=== PATIENT | female | born 1945 | race Caucasian/White ===

== ENCOUNTER 2022-03-21 17:43 | Emergency (ER) | payer MEDICARE, OTHER, SELFPAY ==
--- NOTE | 2022-03-21 18:05 | ED_ITS ---
HPI - General Adult General Chief complaint: Urogenital-Female <ISMAEL Pool - Last Filed: 03/21/22 18:13> Stated complaint: ?UTI <ISMAEL Pool - Last Filed: 03/21/22 18:13> Time Seen by Provider: 03/21/22 18:47 <ISMAEL Pool - Last Filed: 03/21/22 18:13> Source: patient <ISMAEL Pool - Last Filed: 03/21/22 18:13> Mode of arrival: ambulatory <ISMAEL Pool - Last Filed: 03/21/22 18:13> Limitations: no limitations <ISMAEL Pool - Last Filed: 03/21/22 18:13> History of Present Illness HPI narrative: Patient otherwise healthy with history of hypertension comes here for urinary frequency and dysuria for last few hours no fever no chills no nausea no vomiting patient does not get UTI very often <Dmitry Bui MD - Last Filed: 03/21/22 19:30> Related Data Home medications: Previous Rx's Medication Instructions Recorded cefuroxime axetil 250 mg tablet 250 mg PO BID 7 days #14 tabs 03/21/22 phenazopyridine 200 mg tablet 200 mg PO TID 2 days #6 tabs 03/21/22 (Pyridium) <ISMAEL Pool - Last Filed: 03/21/22 18:13> Allergies/adverse reactions: Allergies Allergy/AdvReac Type Severity Reaction Status Date / Time cimetidine [From Tagamet] Allergy Intermediate Gastrointestinal Verified 03/21/22 18:08 Upset erythromycin base Allergy Intermediate Gastrointestinal Verified 03/21/22 18:08 Upset fish derived Allergy Intermediate Gastrointestinal Verified 03/21/22 18:08 Upset ciprofloxacin [From Cipro] AdvReac Intermediate Muscle Verified 03/21/22 18:08 cramps levofloxacin [From Levaquin] AdvReac Intermediate Muscle Pain Verified 03/21/22 18:08 oxycodone AdvReac Mild Nausea Verified 03/21/22 18:08 <ISMAEL Pool - Last Filed: 03/21/22 18:13> Review of Systems Review of Systems: Yes all other systems are reviewed and are negative <Dmitry Bui MD - Last Filed: 03/21/22 19:30> [facility] Social History Social History: Social History Advance Directives: No Advance Directives Information Provided: Yes <ISMAEL Pool - Last Filed: 03/21/22 18:13> Physical Exam ED Vital Signs: Vital Signs - 24 hr 03/21/22 18:09 Temperature 98.2 F Pulse Rate 66 Respiratory Rate 18 Blood Pressure 197/84 H Pulse Oximetry 94 Oxygen Delivery Method Room Air BMI result Body Mass Index 44.6 <ISMAEL Pool - Last Filed: 03/21/22 18:13> Vital Signs - 24 hr 03/21/22 18:09 Temperature 98.2 F Pulse Rate 66 Respiratory Rate 18 Blood Pressure 197/84 H Pulse Oximetry 94 Oxygen Delivery Method Room Air BMI result Body Mass Index 44.6 <Dmitry Bui MD - Last Filed: 03/21/22 19:30> Appearance: Alert. Oriented X3. No acute distress. ENT: Pharynx normal. Oral Mucosa moist Neck: Normal inspection. Neck supple. CVS: Normal heart rate and rhythm. Pulses normal. Respiratory: No respiratory distress. Equal air entry bilateral, Abdomen: Soft and nontender. Bowel sounds are present, no mass palpable, no CVA tenderness Skin: Skin warm and dry. Normal skin color. Normal skin turgor. Extremities: No lower extremity edema. No calf tenderness Neuro: Oriented X 3. <Dmitry Bui MD - Last Filed: 03/21/22 19:30> Course Course Course Narrative: RME performed by Tri Cortez PA-C. Patient is a 76 year old female presenting to the emergency department with a possible UTI. Patient states that she has had increased urinary urgency, frequency, and pain. UA ordered. Patient placed in waiting room pending results and bed availability. <ISMAEL Pool - Last Filed: 03/21/22 18:13> Medical Decision Making Medical Decision Making [facility] Narrative: Patient with uncomplicated UTI discharge patient home on Ceftin and Pyridium <Dmitry Bui MD - Last Filed: 03/21/22 19:30> Lab Data [facility] Lab Attestation statement: I reviewed the patient's lab results. <Dmitry Bui MD - Last Filed: 03/21/22 19:30> Labs: Lab Results 03/21/22 Range/Units 18:48 Urine Color Dark Yellow Urine Appearance Clear Urine pH 7.0 (5.0-9.0) Ur Specific [place] 1.010 (1.005-1.025) Urine Protein Negative (Neg-Trace) mg/dL Urine Glucose (UA) Negative (Negative) mg/dL Urine Ketones Negative (Negative) mg/dL Urine Blood Large (3+) H (Negative) Urine Nitrite Positive H (Negative) Ur Leukocyte Esterase Moderate (2+) H (Negative) Urine RBC 11-20 H (0-2) /HPF Urine WBC 21-50 H (0-5) /HPF Ur Squamous Epith Cells 6-10 (0-2) /HPF Urine Bacteria None Seen (None Seen) Hyaline Casts 0-2 (0-2) /LPF <ISMAEL Pool - Last Filed: 03/21/22 18:13> Lab Results 03/21/22 Range/Units 18:48 Urine Color Dark Yellow Urine Appearance Clear Urine pH 7.0 (5.0-9.0) Ur Specific [place] 1.010 (1.005-1.025) Urine Protein Negative (Neg-Trace) mg/dL Urine Glucose (UA) Negative (Negative) mg/dL Urine Ketones Negative (Negative) mg/dL Urine Blood Large (3+) H (Negative) Urine Nitrite Positive H (Negative) Ur Leukocyte Esterase Moderate (2+) H (Negative) Urine RBC 11-20 H (0-2) /HPF Urine WBC 21-50 H (0-5) /HPF Ur Squamous Epith Cells 6-10 (0-2) /HPF Urine Bacteria None Seen (None Seen) Hyaline Casts 0-2 (0-2) /LPF <Dmitry Bui MD - Last Filed: 03/21/22 19:30> Discharge Plan Discharge Clinical Impression: Urinary tract infection <ISMAEL Pool - Last Filed: 03/21/22 18:13> Patient Disposition: Home, Self-Care <ISMAEL Pool - Last Filed: 03/21/22 18:13> Instructions: Urinary Tract Infection in Women (ED) <ISMAEL Pool - Last Filed: 03/21/22 18:13> Additional Instructions: Drink plenty of fluids Take antibiotic as prescribed Report to the ER if vomiting/fever/flank pain/not feeling better <ISMAEL Pool - Last Filed: 03/21/22 18:13> Prescriptions: New cefuroxime axetil 250 mg tablet 250 mg PO BID 7 Days Qty: 14 0RF phenazopyridine [Pyridium] 200 mg tablet 200 mg PO TID 2 Days Qty: 6 0RF <ISMAEL Pool - Last Filed: 03/21/22 18:13>
[2022-03-21 18:09] VITALS: BP 197/84; PULSE 66; RESP 18; TEMP 36.8; O2SAT 94; BMI 44.6
[2022-03-21 19:05] LABS: Appearance Urine Clear; Color Urine Dark Yellow; Glucose Urine UA Negative (Negative); Leukocyte Esterase Urine Moderate (2+) (Negative); Nitrite Urine Positive (Negative); UMIC TRIGGER UACC YES; Urine Blood Large (3+) (Negative); Urine Ketones Negative (Negative); Urine Protein Negative (Neg-Trace)
[2022-03-21 19:22] LABS: Bacteria Urine None Seen (None Seen); Hyaline Casts Urine 0-2 /LPF (0-2); UACC Culture Trigger YES; WBC Urine 21-50 /HPF (0-5)
[2022-03-21] MEDS: Phenazopyridine HCL 200 MG TABLET PO (19:30)
--- NOTE | 2022-03-21 19:44 | PC.NURSE ---
pt medicated per provider order, medications called into [facility] - [facility].
== END 2022-03-21 19:45 | disposition home or self-care (01) ==
PROVIDERS: Physician Assistant Medical; Emergency Provider Internal Medicine; PCP Family Medicine
DX: N39.0 Urinary tract infection, site not specified (principal); B96.4 Proteus (mirabilis) (morganii) as the cause of diseases classified elsewhere
CPT/HCPCS: 81001; 81003; 87086; 87088; 87186; 99283

== ENCOUNTER 2023-02-26 10:49 | Emergency (ER) | payer MEDICARE, OTHER, SELFPAY ==
--- NOTE | 2023-02-26 10:53 | ECG_ITS ---
Test Reason : MOUTH NUMBNESS Blood Pressure : / mmHG Vent. Rate : 061 BPM Atrial Rate : 061 BPM P-R Int : 166 ms QRS Dur : 078 ms QT Int : 426 ms P-R-T Axes : 052 039 036 degrees QTc Int : 428 ms Normal sinus rhythm Normal ECG When compared with ECG of 15-AUG-2004 11:45, No significant change was found Referred By: James Ulloa Electronically Signed By:MAUREEN DE LEON
--- NOTE | 2023-02-26 10:53 | ED_ITS ---
HPI - Anxiety General Chief Complaint: General Medical Stated Complaint: STROKE SYMPTOMS Time Seen by Provider: 02/26/23 10:52 Source: patient and EMS Mode of arrival: EMS Limitations: no limitations History of Present Illness HPI narrative: Patient under a lot of stress at home, mouth numbness, felt like her tongue was swelling. She was concerned that she was having a stroke, no other focal findings Onset (ago): minute(s) Symptoms: perioral numbness/tingling Related Data Previous Rx's Medication Instructions Recorded cefuroxime axetil 250 mg tablet 250 mg PO BID 7 days #14 tabs 03/21/22 phenazopyridine 200 mg tablet 200 mg PO TID 2 days #6 tabs 03/21/22 (Pyridium) Allergies Allergy/AdvReac Type Severity Reaction Status Date / Time cimetidine [From Tagamet] Allergy Intermediate Gastrointestinal Verified 03/21/22 18:08 Upset erythromycin base Allergy Intermediate Gastrointestinal Verified 03/21/22 18:08 Upset fish derived Allergy Intermediate Gastrointestinal Verified 03/21/22 18:08 Upset ciprofloxacin [From Cipro] AdvReac Intermediate Muscle Verified 03/21/22 18:08 cramps levofloxacin [From Levaquin] AdvReac Intermediate Muscle Pain Verified 03/21/22 18:08 oxycodone AdvReac Mild Nausea Verified 03/21/22 18:08 Review of Systems 2 Review of Systems: Yes all other systems are reviewed and are negative Neurologic: Denies Sensory deficit (Neuro) [facility] Social History Social History Advance Directives: No Advance Directives Information Provided: Yes Physical Exam 2 Vital Signs: Vital Signs: Last Vital Signs Temp 98.8 F 02/26/23 11:00 Pulse 61 02/26/23 12:28 Resp 18 02/26/23 12:28 BP 181/48 H 02/26/23 12:28 Pulse Ox 92 02/26/23 12:28 O2 Del Method Room Air 02/26/23 12:28 BMI result Body Mass Index 49.6 Const: Other: slightly anxious Nutritional Appearance: obese Orientation/consciousness: oriented to person and patient oriented x3 Limitations: no limitations HEENT: Head: Yes normal to inspection Ears: external ears normal General nose exam: Normal external nose present Mouth: Normal oral and palatal mucosa present and oropharynx normal Throat: Yes posterior oropharynx normal Eyes: General: appearance normal, both eyes and all related structures Neck: Other: supple Neck: Yes normal visual inspection Chest: Chest palpation & inspection: normal inspection of the chest Resp: Auscultation: clear to auscultation bilaterally Cardio: Jugular venous distension: no JVD Rate: regular rate Rhythm: r egular rhythm Heart sounds: S1 normal heart sound present and S2 normal heart sound present GI: Inspection: Yes normal to inspection Palpation (GI): Soft to palpation, nontender and No hepatosplenomegaly present Auscultation: normal bowel sounds : General: Yes no CVA tenderness Back/Spine/Pelvis: Back: no CVA tenderness Skin: General skin exam: no rashes or lesions noted Neuro: Other: nonfocal neuro exam, NIH 0 General: oriented to person and patient oriented x3 Cranial nerves: Yes CN's II-XII intact bilaterally Motor exam (neuro): 5/5 motor strength present throughout Sensory Exam: No Sensory deficit (Neuro) Extrem: General: Yes normal to inspection Psych: Appearance: grossly normal Course Reevaluation(s) Reevaluation #1: labs normal, patient non focal will dc with anxiety and paraesthesia Time: 13:25 Medical Decision Making Differential Diagnosis Differential Diagnoses: The differential diagnosis associated with the presentation includes (anxiety, CVA, bells palsy allergic reaction were all considered) Admission/Observation Consideration of admission/observation: Escalation of care including admission/observation considered (upon arrival patient was considered for admission) Lab Data 02/26/23 12:17 02/26/23 12:17 Labs: Lab Results 02/26/23 02/26/23 Range/Units 12:17 12:23 WBC 7.9 (4.8-10.8) X10*3/uL RBC 4.45 (4.20-5.50) X10*6/uL Hgb 12.9 (12.0-16.0) g/dl Hct 38.8 (37.0-47.0) % MCV 87.2 (80.0-98.0) fL MCH 29.0 (27.0-33.0) pg MCHC 33.2 (31.0-35.0) g/dl RDW 13.7 (11.0-16.0) % Plt Count 243 (160-400) X10*3/uL MPV 10.1 (9.4-12.3) fL Immature Gran % (Auto) 0.3 (0.0-0.4) % Neut % (Auto) 73.2 H (45-73) % Lymph % (Auto) 17.3 L (20-40) % Orange % (Auto) 5.4 (2-11) % Eos % (Auto) 3.0 (0-4) % Baso % (Auto) 0.8 (0-2) % Lymph # (Auto) 1.4 (1.2-4.9) X10*3/uL Orange # (Auto) 0.4 (0.1-1.2) X10*3/uL Eos # (Auto) 0.2 (0.0-0.4) X10*3/uL Baso # (Auto) 0.1 (0.0-0.2) X10*3/uL Abs Immat Gran (auto) 0.02 (0.00-0.03) X10*3/uL Absolute Neuts (auto) 5.8 (2.0-8.3) x10*3/uL Absolute Nucleated RBC 0.000 (0.0-0.012) X10*3/uL Nucleated RBC % (auto) 0.0 (0.0-0.2) /100WBC Sodium 145 (135-145) mmol/L Potassium 4.1 (3.3-5.1) mmol/L Chloride 110 H (96-108) mmol/L Carbon Dioxide 27 (22-29) mmol/L Anion Gap 12 (12-20) BUN 13 (9-16) mg/dL Creatinine 0.77 (0.5-1.4) mg/dL Estim Creat Clear Calc 78.2 Estimated GFR > 60 Random Glucose 111 (60-115) mg/dL Calcium 9.4 (8.4-10.2) mg/dL Troponin I High Sens < 2.7 (<3.5-17.0) ng/L Urine Color Yellow Urine Appearance Clear Urine pH 7.0 (5.0-9.0) Ur Specific [place] <= 1.005 (1.005-1.025) Urine Protein Negative (Neg-Trace) mg/dL Urine Glucose (UA) Negative (Negative) mg/dL Urine Ketones Negative (Negative) mg/dL Urine Blood Negative (Negative) Urine Nitrite Negative (Negative) Ur Leukocyte Esterase Negative (Negative) Independent Interpretation I performed an independent interpretation of an: EKG (sinus 60, no st or twave changes) Independent Historian Clinical information obtained from an independent historian. History obtained from or confirmed by: Spouse and EMS Tests considered The following testing was considered but not selected: CT of head considered but patient was non focal Chronic Conditions Patient?s care impacted by: Hypertension and Other (anxiety) Discharge Plan Discharge Clinical Impression: Facial paresthesia, Anxiety Patient Disposition: Home, Self-Care Instructions: Paresthesia (ED), Anxiety (ED) Prescriptions: No Action cefuroxime axetil 250 mg tablet 250 mg PO BID 7 Days Qty: 14 0RF phenazopyridine [Pyridium] 200 mg tablet 200 mg PO TID 2 Days Qty: 6 0RF Referrals: Talat Paige MD [Primary Care Provider] - 5 days
[2023-02-26 11:00] VITALS: BP 200/100; BP 202/90; PULSE 59; PULSE 73; RESP 18; TEMP 37.1; O2SAT 95; O2SAT 97; BMI 49.6
--- OUTSIDE RECORDS SUMMARY | 2023-02-26 11:18 | XMS_ITS | Continuity of Care Document ---
Author Name Unknown Organization [facility] Address [address], [address], [address] [place] [id number]- Care Team Providers Care Manager Finance Name Role Phone Grecia SEGUNDO, Talat March Primary Care Physician Encounter [facility] [place] Date(s[place] 07/14/22 - 08/13/22 [facility] [address], [address], [address] [place] [id number] Allergies, Adverse Reactions, Alerts Substance Reaction Severity Status ciprofloxacin weakness Active erythromycin [D]Nausea Active cimetidine WEAKNESS Active Tagamet [D]Nausea Active Levaquin spasms Active Seafood [D]Headache [D]Nausea Active Immunizations Given and Recorded Vaccine Date Status Refusal Reason pneumococcal 23-valent vaccine 1 05/07/22 Given influenza virus vaccine, inactivated 01/12/22 Robles rded influenza virus vaccine, inactivated 12/16/20 Robles rded influenza virus vaccine, inactivated 2 01/19/19 Gi maggie influenza virus vaccine, inactivated 01/03/18 Give n influenza virus vaccine, inactivated 3 03/01/17 Gi maggie SARS-CoV-2 mRNA ([id number]) vax 09/16/21 Recorded zoster vaccine, inactivated 04/14/21 Recorded zoster vaccine, inactivated 12/09/20 Recorded SARS-CoV-2 (COVID-19) mRNA BNT-162b2 vac 01/08/21 Recorded SARS-CoV-2 (COVID-19) mRNA BNT-162b2 vac 05/22/20 Given SARS-CoV-2 (COVID-19) mRNA BNT-162b2 vac 05/01/20 Given Influenza Virus Vaccine (oldterm) 11/16/19 Recorde d tetanus/diphtheria/pertussis, acel(Tdap) 4 08/23/17 Given pneumococcal 13-valent vaccine 5 03/01/17 Given 1Result Comment: [id number] 2Result Comment: [facility]-[id number] 3Result Comment: [03/01/2017] [facility] [id number] 4Result Comment: [08/23/2017] [facility] [id number] 5Result Comment: [03/01/2017] [facility] [id number] Medications Calcium 600 +D By Mouth, 0 Refills Start Date: 09/04/08 Stop Date: 10/04/08 Status: Ordered clonazePAM 1 mg oral tablet 1 tablet, By Mouth, 2 times a day, # 180 tablet, 1 Refills, Maintenance, 02/03/22 15:36:00 EST, [facility], 175.26, cm, 02/03/22 14:57:00 EST, Height Start Date: 02/03/22 Status: Ordered cranberry oral tablet 0 Refills, Maintenance, 09/24/16 10:41:52 Start Date: 09/24/16 Status: Ordered Flonase 50 mcg/inh nasal spray 1 sprays = 50 mcg, Nares, Both, Daily, # 16 Gm, 5 Refills, Maintenance, 01/15/20 14:58:00 EDT, Nasal [place], [facility]/pharmacy #[id number], 1 sprays Nares, Both Daily, 175.26, cm, 12/04/19 14:32:00 EDT, Height, 121.7, kg, 09/01/19 8:19:00 EDT, Dry Weight Start Date: 01/15/20 Status: Ordered hyoscyamine 0.125 mg oral tablet 0.125 mg, 1, tablet, By Mouth, Daily, PRN, # 45 tablet, Refills 3, Tot. Refills 3, Maintenance, Spasm, 11/20/20 17:39:00 EDT, Route to Pharmacy Electronically, [facility], Partial fill upon patient request if the prescription is... Start Date: 11/20/20 Status: Ordered Magnesium Carbonate See Instructions, 200mg bid, 0 Refills, Maintenance, 02/26/22 12:56:00 EST, Partial fill upon patient request if the prescription is for a schedule II opioid drug. Start Date: 02/26/22 Status: Ordered Multivitamin Tablet 1 tablet, By Mouth, Daily, 0 Refills Start Date: 09/04/08 Stop Date: 10/04/08 Status: Ordered nystatin topical 729863 u/gm powder 1 application, Topically, 2 times a day, Apply to affected areas twice a day., # 60 Gm, 5 Refills, Acute 05/07/23 14:21:00 EST, 05/07/22 14:21:00 EST, Powder, [facility], 1 application Topically 2 times a day,Instr:Apply to affe... Start Date: 05/07/22 Stop Date: 05/07/23 Status: Ordered omeprazole 40 mg oral enteric coated capsule 1 capsule = 40 mg, By Mouth, 2 times a day, # 180 capsule, 3 Refills, Maintenance, 02/03/22 15:34:00 EST, Suspension, [facility], Partial fill upon patient request if the prescription is for a schedule II opioid drug., 175.26, c... Start Date: 02/03/22 Status: Ordered PARoxetine 20 mg oral tablet 1, tablet, By Mouth, Daily, # 90 tablet, Refills 1, Maintenance, 05/12/22 13:58:00 EST, Route to Pharmacy Electronically, [facility], 175.26, cm, 05/07/22 14:00:00 EST, Height Start Date: 05/12/22 Status: Ordered Probiotic Formula 1 capsule, By Mouth, Daily, 0 Refills, Maintenance, 09/24/16 10:41:57 Start Date: 09/24/16 Status: Ordered propranolol 20 mg oral tablet 20 mg, 1, tablet, By Mouth, 2 times a day, Stop verapamil, # 60 tablet, Refills 9, Tot. Refills 9, Maintenance, 06/29/22 11:50:00 EDT, Route to Pharmacy Electronically, [facility], Partial fill upon patient request if the prescr... Start Date: 06/29/22 Status: Ordered rizatriptan 10 mg oral tablet 1 tablet = 10 mg, By Mouth, Daily, PRN Migraine Headache, may repeat dose in 2 hours if needed, do not exceed 2 doses in 24 hours, # 9 tablet, 5 Refills, Acute 08/11/23 0:00:00 EDT, 08/10/22 18:20:00EDT, [facility]/pharmacy #[id number], Partial fill upon patient... Start Date: 08/10/22 Stop Date: 08/11/23 Status: Ordered simvastatin 20 mg oral tablet 1, tablet, By Mouth, Daily at bedtime, # 90 tablet, Refills 1, Maintenance, 05/12/22 13:58:00 EST, Route to Pharmacy Electronically, [facility], 175.26, cm, 05/07/22 14:00:00 EST,Height Start Date: 05/12/22 Status: Ordered ubrogepant 100 mg oral tablet 1 tablet = 100 mg, By Mouth, Daily, PRN Headache, # 9 tablet, 0 Refills, Soft Stop, 08/10/22 18:12:00 EDT, [facility]/pharmacy #[id number], Partial fill upon patient request if the prescription is for a schedule II opioid drug., 175.26, cm, 06/29/22 11:56:00 EDT,... Start Date: 08/10/22 Status: Ordered Vitamin B2 By Mouth, Daily, 0 Refills, Maintenance, 02/03/22 15:14:00 EST, Partial fill upon patient request if the prescription is for a schedule II opioid drug. Start Date: 02/03/22 Status: Ordered Problem List Condition Confirmation Course Effective Dates Status H ealth Status Informant Anxiety Confirmed Active Meningioma Confirmed Active Benign neoplasm of meninges Confirmed Active Chronic sinusitis Confirmed Active Depressive disorder Confirmed Active Gastroesophageal reflux disease Confirmed Active Headache Confirmed Active Hip pain Confirmed Active Hyperlipidemia Confirmed Active Meralgia paresthetica Confirmed Active Migraine headache with aura Confirmed Active SELMA (obstructive sleep apnea) Confirmed Active Osteoarthritis, knee Confirmed Active Seasonal allergic rhinitis Confirmed Active Severe obesity (BMI 35.0-39.9) with comorbidity Confirmed Active Urinary symptom or sign Confirmed Active Venous stasis Confirmed Active Social History Social History Type Response Smoking Status Never smoker entered on: 09/24/16 Sex Patient Care team information Care Team Personnel Name: Talat Paige MD Position: S Physician - Primary Care Member Role: PCP Address: Address: [address] [place] [id number]- Care Team Related Persons Name: ANNIE HASSAN Address: home [address] [place] [address] Name: LISHA LOVE Address: home [address] [place] [address]
--- OUTSIDE RECORDS SUMMARY | 2023-02-26 11:18 | XMS_ITS | Continuity of Care Document ---
Author Name Unknown Organization [facility] Address Unknown Care Team Providers Care Supervisor Nutritional Yeast Name Role Phone Grecia SEGUNDO, Talat March Primary Care Physician [phone] Encounter [facility] R [id number] Date(s): 05/21/21 - 06/20/21 [facility] Attending Physician: Vitor Asencio Admitting Physician: Vitor Asencio Referring Physician: AdmtrVitor Allergies, Adverse Reactions, Alerts Substance Reaction Severity Status ciprofloxacin weakness Active erythromycin [D]Nausea Active cimetidine WEAKNESS Active Tagamet [D]Nausea Active Levaquin spasms Active Seafood [D]Headache [D]Nausea Active Immunizations Given and Recorded Vaccine Date Status Refusal Reason influenza virus vaccine, inactivated 12/16/20 Robles rded influenza virus vaccine, inactivated 1 01/19/19 Gi maggie influenza virus vaccine, inactivated 01/03/18 Give n influenza virus vaccine, inactivated 2 03/01/17 Gi maggie zoster vaccine, inactivated 12/09/20 Recorded SARS-CoV-2 (COVID-19) mRNA BNT-162b2 vac 05/22/20 Given SARS-CoV-2 (COVID-19) mRNA BNT-162b2 vac 05/01/20 Given Influenza Virus Vaccine (oldterm) 11/16/19 Recorde d tetanus/diphtheria/pertussis, acel(Tdap) 3 08/23/17 Given pneumococcal 13-valent vaccine 4 03/01/17 Given 1Result Comment: [facility]-[id number] 2Result Comment: [03/01/2017] [facility] [id number] 3Result Comment: [08/23/2017] [facility] [id number] 4Result Comment: [03/01/2017] [facility] [id number] Medications acetaminophen/butalbital/caffeine 325 mg-50 mg-40 mg oral capsule 1 capsule, By Mouth, Every 4 hours, PRN NEEDED FOR HEADACHE, # 180 capsule, 3 Refills, Acute 11/20/21 17:41:00 EDT, 11/20/20 17:41:00 EDT, [facility], 30, 1 capsule By MouthEvery 4 hours,PRN: NEEDED FOR HEADA... Start Date: 11/20/20 Stop Date: 11/20/21 Status: Ordered BiPAP Equipment BiPAP 14/10, Maintenance, nasal mask Reliable Respiratory, 05/16/18 15:13:22 EST, Compound Start Date: 05/16/18 Status: Ordered Calcium 600 +D By Mouth, 0 Refills Start Date: 09/04/08 Stop Date: 10/04/08 Status: Ordered clonazePAM 1 mg oral tablet 1 tablet, By Mouth, 2 times a day, # 180 tablet, 1 Refills, Maintenance, 11/20/20 17:38:00 EDT, [facility], 175.26, cm, 11/20/20 14:07:00 EDT, Height, 121.7, kg, 09/01/19 8:19:00 EDT, Dry Weight Start Date: 11/20/20 Status: Ordered cranberry oral tablet 0 Refills, Maintenance, 09/24/16 10:41:52 Start Date: 09/24/16 Status: Ordered Flonase 50 mcg/inh nasal spray 1 sprays = 50 mcg, Nares, Both, Daily, # 16 Gm, 5 Refills, Maintenance, 01/15/20 14:58:00 EDT, Nasal [place], [facility]/pharmacy #[id number], 1 sprays Nares, Both Daily, 175.26, cm, 12/04/19 14:32:00 EDT, Height, 121.7, kg, 09/01/19 8:19:00 EDT, Dry Weight Start Date: 01/15/20 Status: Ordered Hyoscyamine 0 Refills, Maintenance, 09/24/16 10:41:29 Start Date: 09/24/16 Status: Ordered hyoscyamine 0.125 mg oral tablet 0.125 mg, 1, tablet, By Mouth, Daily, PRN, # 45 tablet, Refills 3, Tot. Refills 3, Maintenance, Spasm, 11/20/20 17:39:00 EDT, Route to Pharmacy Electronically, [facility], Partial fill upon patient request if the prescription is... Start Date: 11/20/20 Status: Ordered Multivitamin Tablet 1 tablet, By Mouth, Daily, 0 Refills Start Date: 09/04/08 Stop Date: 10/04/08 Status: Ordered omeprazole 20 mg oral enteric coated capsule 1 capsule, By Mouth, Daily, # 90 capsule, 3 Refills, Maintenance, 11/20/20 17:40:00 EDT, [facility], 175.26, cm, 11/20/20 14:07:00 EDT, Height, 121.7, kg, 09/01/19 8:19:00 EDT,Dry Weight Start Date: 11/20/20 Status: Ordered PARoxetine 20 mg oral tablet 1, tablet, By Mouth, Daily, # 90 tablet, Refills 1, Route to Pharmacy Electronically, [facility], 175.26, cm, 11/20/20 14:07:00 EDT, Height, 121.7, kg, 09/01/19 8:19:00 EDT, Dry Weight Start Date: 02/11/21 Status: Ordered Probiotic Formula 1 capsule, By Mouth, Daily, 0 Refills, Maintenance, 09/24/16 10:41:57 Start Date: 09/24/16 Status: Ordered rizatriptan 5 mg oral tablet 1 tablet = 5 mg, By Mouth, Daily, PRN Migraine auras, # 12 tablet, 3 Refills, Acute 11/20/21 17:41:00 EDT, 11/20/20 17:40:00 EDT, Tablet, [facility], Partial fill upon patient request if the prescription is for a schedule II opi... Start Date: 11/20/20 Stop Date: 11/20/21 Status: Ordered simvastatin 20 mg oral tablet 1, tablet, By Mouth, Daily at bedtime, # 90 tablet, Refills 3, Tot. Refills 0, Maintenance, 09/03/20 16:49:00 EDT, Route to Pharmacy Electronically, [facility], 175.26, cm, 12/04/19 14:32:00 EDT, Height, 121.7, kg, 09/01/19 8:19:00... Start Date: 09/03/20 Status: Ordered triamcinolone topical 0.1% paste See Instructions, Apply to affected lesions at corners of mouth tid until resolves, # 4 Gm, 2 Refills, Maintenance, 11/08/18 11:22:17 EDT, Apply to affected lesions at corners of mouth tid until resolves Start Date: 11/08/18 Status: Ordered verapamil 180 mg oral capsule, extended release 1 capsule, By Mouth, Daily, # 90 capsule, 3 Refills, Maintenance, 09/03/20 16:49:00 EDT, [facility], 175.26, cm, 12/04/19 14:32:00 EDT, Height, 121.7, kg, 09/01/19 8:19:00 EDT, DryWeight Start Date: 09/03/20 Status: Ordered Problem List Condition Effective Dates Status Health Status Inform ant Anxiety(Confirmed) Active Meningioma(Confirmed) Active Benign neoplasm of meninges(Confirmed) Active Chronic sinusitis(Confirmed) Active Depressive disorder(Confirmed) Active Gastroesophageal reflux disease(Confirmed) Active Headache(Confirmed) Active Hip pain(Confirmed) Active Hyperlipidemia(Confirmed) Active Meralgia paresthetica(Confirmed) Active Migraine headache with aura(Confirmed) Active SELMA (obstructive sleep apnea)(Confirmed) Active Osteoarthritis, knee(Confirmed) Active Seasonal allergic rhinitis(Confirmed) Active Urinary symptom or sign(Confirmed) Active Venous stasis(Confirmed) Active Social History Social History Type Response Smoking Status Never smoker entered on: 09/24/16 Sex
--- OUTSIDE RECORDS SUMMARY | 2023-02-26 11:18 | XMS_ITS | Continuity of Care Document ---
Author Name Unknown Organization [facility] Address [address] [place] [address]- Care Team Providers Care Wood Fence Erector Name Role Phone Grecia SEGUNDO, Talat March Primary Care Physician [phone] Encounter [facility] Date(s): 05/13/19 - 09/10/19 [facility] [address] [place] [address]- [facility] Attending Physician: Chon TRUCK OPERATOR, Delma Maurer Referring Physician: Talat Paige MD Allergies, Adverse Reactions, Alerts Substance Reaction Severity Status ciprofloxacin weakness Active erythromycin [D]Nausea Active cimetidine WEAKNESS Active Tagamet [D]Nausea Active Levaquin spasms Active Seafood [D]Headache [D]Nausea Active Immunizations Given and Recorded Vaccine Date Status Refusal Reason influenza virus vaccine, inactivated 1 01/19/19 Gi maggie influenza virus vaccine, inactivated 01/03/18 Give n influenza virus vaccine, inactivated 2 03/01/17 Gi maggie tetanus/diphtheria/pertussis, acel(Tdap) 3 08/23/17 Given pneumococcal 13-valent vaccine 4 03/01/17 Given 1Result Comment: [facility]-[id number] 2Result Comment: [03/01/2017] [facility] [id number] 3Result Comment: [08/23/2017] [facility] [id number] 4Result Comment: [03/01/2017] [facility] [id number] Medications acetaminophen/butalbital/caffeine 325 mg-50 mg-40 mg oral capsule 1 capsule, By Mouth, Every 4 hours, PRN for headache, # 90 capsule, 1 Refills, Maintenance, 07/03/19 14:23:00 EDT, Capsule, [facility], 1 capsule By Mouth Every 4 hours,PRN:forheadache, 162.56, cm, 11/08/18 10:49:00 EDT, Height Start Date: 07/03/19 Status: Ordered BiPAP Equipment BiPAP 14/10, Maintenance, nasal mask Reliable Respiratory, 05/16/18 15:13:22 EST, Compound Start Date: 05/16/18 Status: Ordered Calcium 600 +D By Mouth, 0 Refills Start Date: 09/04/08 Stop Date: 10/04/08 Status: Ordered clonazePAM 1 mg oral tablet 1 tablet, By Mouth, 2 times a day, # 180 tablet, 1 Refills, Maintenance, 05/09/19 12:56:00 EST, [facility], 162.56, cm, 11/08/18 10:49:00 EDT, Height Start Date: 05/09/19 Status: Ordered cranberry oral tablet 0 Refills, Maintenance, 09/24/16 10:41:52 Start Date: 09/24/16 Status: Ordered Dilaudid 2 mg oral tablet 1 tablet = 2 mg, By Mouth, Every 4 hours, PRN for pain, # 18 tablet, 0 Refills, Maintenance, 09/01/19 10:16:00 EDT, Tablet, [facility], Partial fill upon patient request, 175.26, cm,09/01/19 8:19:00 EDT, Height, 121.7, kg, 09/01/19 8... Start Date: 09/01/19 Status: Ordered Flonase 50 mcg/inh nasal spray 1 sprays = 50 mcg, Nares, Both, Daily, # 16 Gm, 5 Refills, Maintenance, 11/08/18 11:12:34 EDT, Nasal [place], 1 sprays Nares, Both Daily Start Date: 11/08/18 Status: Ordered Hyoscyamine 0 Refills, Maintenance, 09/24/16 10:41:29 Start Date: 09/24/16 Status: Ordered Multivitamin Tablet 1 tablet, By Mouth, Daily, 0 Refills Start Date: 09/04/08 Stop Date: 10/04/08 Status: Ordered omeprazole 20 mg oral enteric coated capsule 1 capsule, By Mouth, Daily, # 90 capsule, 3 Refills, Maintenance, 08/16/19 7:22:00 EDT, [facility], 162.56, cm, 11/08/18 10:49:00 EDT, Height Start Date: 08/16/19 Status: Ordered PARoxetine 20 mg oral tablet 1, tablet, By Mouth, Daily, # 90 tablet, Refills 3, Tot. Refills 3, Maintenance, 06/23/19 11:03:00 EDT, Route to Pharmacy Electronically, [facility], 162.56, cm, 11/08/18 10:49:00 EDT, Height Start Date: 06/23/19 Status: Ordered Probiotic Formula 1 capsule, By Mouth, Daily, 0 Refills, Maintenance, 09/24/16 10:41:57 Start Date: 09/24/16 Status: Ordered rizatriptan 5 mg oral tablet 1 tablet = 5 mg, By Mouth, Daily, PRN Migraine auras, 0 Refills, Acute, 08/30/19 12:40:00 EDT Start Date: 08/30/19 Status: Ordered simvastatin 20 mg oral tablet 20 mg, 1, tablet, By Mouth, Daily at bedtime, # 90 tablet, Refills 3, Tot. Refills 3, Maintenance, 11/08/18 11:11:57 EDT, Route to Pharmacy Electronically, [id number], [facility] Start Date: 11/08/18 Status: Ordered triamcinolone topical 0.1% paste See Instructions, Apply to affected lesions at corners of mouth tid until resolves, # 4 Gm, 2 Refills, Maintenance, 11/08/18 11:22:17 EDT, Apply to affected lesions at corners of mouth tid until resolves Start Date: 11/08/18 Status: Ordered verapamil 180 mg oral capsule, extended release 1 capsule = 180 mg, By Mouth, Daily, # 90 capsule, 3 Refills, Maintenance, 11/08/18 11:11:44 EDT, CR Capsule Start Date: 11/08/18 Status: Ordered Zofran 4 mg oral tablet 1 tablet = 4 mg, By Mouth, Every 8 hours, PRN Nausea & Vomiting, # 10 tablet, 0 Refills, Maintenance, 09/01/19 10:18:00 EDT, Tablet, [facility], 175.26, cm, 09/01/19 8:19:00 EDT,Height, 121.7, kg, 09/01/19 8:19:00 EDT, Dry Weight Start Date: 09/01/19 Status: Ordered Problem List Condition Effective Dates Status Health Status Inform ant Anxiety(Confirmed) Active 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
--- OUTSIDE RECORDS SUMMARY | 2023-02-26 11:18 | XMS_ITS | Continuity of Care Document ---
Author Name Unknown Organization [facility] Address [address] [facility], [address] Floor, [address] [place] [address]- Care Team Providers Care Toll Line Repairer Name Role Phone Grecia SEGUNDO, Talat March Primary Care Physician Encounter [facility] Date(s): 01/12/22 - 02/11/22 [facility] [address] [place], [address], [address] [place] [address] Attending Physician: Admjose, Vitor Admitting Physician: Admtr, Timothy8 Referring Physician: Admtr, Ar8 Allergies, Adverse Reactions, Alerts Substance Reaction Severity Status ciprofloxacin weakness Active Levaquin spasms Active erythromycin [D]Nausea Active Tagamet [D]Nausea Active Seafood [D]Headache [D]Nausea Active cimetidine WEAKNESS Active Immunizations Given and Recorded Vaccine Date Status Refusal Reason influenza virus vaccine, inactivated 01/12/22 Robles rded influenza virus vaccine, inactivated 12/16/20 Robles rded influenza virus vaccine, inactivated 1 01/19/19 Gi maggie influenza virus vaccine, inactivated 01/03/18 Give n influenza virus vaccine, inactivated 2 03/01/17 Gi maggie SARS-CoV-2 mRNA ([id number]) vax 09/16/21 Recorded zoster vaccine, inactivated 04/14/21 Recorded zoster vaccine, inactivated 12/09/20 Recorded SARS-CoV-2 (COVID-19) mRNA BNT-162b2 vac 01/08/21 Recorded SARS-CoV-2 (COVID-19) mRNA BNT-162b2 vac 05/22/20 Given SARS-CoV-2 (COVID-19) mRNA BNT-162b2 vac 05/01/20 Given Influenza Virus Vaccine (oldterm) 11/16/19 Recorde d tetanus/diphtheria/pertussis, acel(Tdap) 3 08/23/17 Given pneumococcal 13-valent vaccine 4 03/01/17 Given 1Result Comment: [facility]-[id number] 2Result Comment: [03/01/2017] [facility] [id number] 3Result Comment: [08/23/2017] [facility] [id number] 4Result Comment: [03/01/2017] [facility] [id number] Medications BiPAP Equipment BiPAP 02/01, Maintenance, nasal mask Reliable Respiratory, 05/16/18 15:13:22 EST, Compound Start Date: 05/16/18 Status: Ordered Calcium 600 +D By Mouth, 0 Refills Start Date: 09/04/08 Stop Date: 10/04/08 Status: Ordered clonazePAM 1 mg oral tablet 1 tablet, By Mouth, 2 times a day, # 180 tablet, 1 Refills, Maintenance, 02/03/22 15:36:00 EST, [facility], 175.26, cm, 02/03/22 14:57:00 EST, Height Start Date: 02/03/22 Status: Ordered cranberry oral tablet 0 Refills, Maintenance, 09/24/16 10:41:52 Start Date: 09/24/16 Status: Ordered Flonase 50 mcg/inh nasal spray 1 sprays = 50 mcg, Nares, Both, Daily, # 16 Gm, 5 Refills, Maintenance, 01/15/20 14:58:00 EDT, Nasal [place], [facility]/pharmacy #[id number], 1 sprays Nares, Both Daily, 175.26, [...] 11/20/20 17:39:00 EDT, Route to Pharmacy Electronically, [facility], Partial fill upon patient request if the prescription is... Start Date: 11/20/20 Status: Ordered KlonoPIN 1 mg oral tablet 1 tablet = 1 mg, By Mouth, 3 times a day, 0 Refills, Maintenance, 02/03/22 15:13:00 EST, Partial fill upon patient request if the prescription is for a schedule II opioid drug. Start Date: 02/03/22 Status: Ordered Multivitamin Tablet 1 tablet, By Mouth, Daily, 0 Refills Start Date: 09/04/08 Stop Date: 10/04/08 Status: Ordered omeprazole 40 mg oral enteric coated capsule 1 capsule = 40 mg, By Mouth, 2 times a day, # 180 capsule, 3 Refills, Maintenance, 02/03/22 15:34:00 EST, Suspension, [facility], Partial fill upon patient request if the prescription is for a schedule II opioid drug., 175.26, c... Start Date: 02/03/22 Status: Ordered PARoxetine 20 mg oral tablet 1, tablet, By Mouth, Daily, # 90 tablet, Refills 1, Maintenance, 12/06/21 1:01:00 EDT, [facility], [facility], 175.26, cm, 03/25/21 7:10:00 EST, Height Start Date: 12/06/21 Status: Ordered Probiotic Formula 1 capsule, By Mouth, Daily, 0 Refills, Maintenance, 09/24/16 10:41:57 Start Date: 09/24/16 Status: Ordered rizatriptan 10 mg oral tablet 1 tablet = 10 mg, By Mouth, Daily, PRN for migraine headache, may repeat dose every 2 hours up to amaximum of 2 doses, do not use more than 2 tabs in a week., # 9 tablet, 0 Refills, Acute 01/12/23 0:00:00 EDT, 01/12/22 17:01:00 EDT, Tablet, [facility] Care... Start Date: 01/12/22 Stop Date: 01/12/23 Status: Ordered simvastatin 20 mg oral tablet 1, tablet, By Mouth, Daily at bedtime, # 90 tablet, Refills 3, [facility], [facility], 175.26, cm, 03/25/21 7:10:00 EST, Height, 121.7, kg, 09/01/19 8:19:00 EDT, Dry Weight Start Date: 06/30/21 Status: Ordered triamcinolone topical 0.1% paste See Instructions, Apply to affected lesions at corners of mouth tid until resolves, # 4 Gm, 2 Refills, Maintenance, 11/08/18 11:22:17 EDT, Apply to affected lesions at corners of mouth tid until resolves Start Date: 11/08/18 Status: Ordered verapamil 180 mg oral capsule, extended release 1 capsule, By Mouth, Daily, # 90 capsule, 3 Refills, Maintenance, 12/10/21 5:10:00 EDT, [facility], 175.26, cm, 03/25/21 7:10:00 EST, Height Start Date: 12/10/21 Status: Ordered Vitamin B2 By Mouth, Daily, [...] Active Migraine headache with aura Confirmed Active SELAM (obstructive sleep apnea) Confirmed Active Osteoarthritis, knee Confirmed Active Seasonal allergic rhinitis Confirmed Active Severe obesity Confirmed Active Urinary symptom or sign Confirmed Active Venous stasis Confirmed Active Social History Social History Type Response Smoking Status Never smoker entered on: 09/24/16 Sex Patient Care team information Care Team Personnel Name: Talat Paige MD Position: [facility] Primary Care Physician Member Role: PCP Address: Address: [address] [place] [address]- Care Team Related Persons Name: ANNIE HASSAN Address: home [address] [place] [address] Name: LISHA LOVE Address: [address] [place] [address]
--- OUTSIDE RECORDS SUMMARY | 2023-02-26 11:18 | XMS_ITS | Continuity of Care Document ---
Author Name Unknown Organization [facility] Address [address] [place] [address]- Care Team Providers Care Maintenance And Engineering Manager Name Role Phone Grecia SEGUNDO, Talat March Primary Care Physician Encounter [facility] Date(s): 02/27/22 - 03/29/[address] [address] Attending Physician: Admjose, Vitor Admitting Physician: AdmtrVitor Referring Physician: Admtr, Ar8 Allergies, Adverse Reactions, Alerts Substance Reaction Severity Status ciprofloxacin weakness Active erythromycin [D]Nausea Active Tagamet [D]Nausea Active Seafood [D]Headache [D]Nausea Active cimetidine WEAKNESS Active Levaquin spasms Active Immunizations Given and Recorded Vaccine Date Status Refusal Reason influenza virus vaccine, inactivated 01/12/22 Robles rded influenza virus vaccine, inactivated 12/16/20 Robles rded influenza virus vaccine, inactivated 1 01/19/19 Gi maggie influenza virus vaccine, inactivated 01/03/18 Give n influenza virus vaccine, inactivated 2 03/01/17 Gi maggie SARS-CoV-2 mRNA ([id number]) vax 09/16/21 Recorded zoster vaccine, inactivated 04/14/21 Recorded zoster vaccine, inactivated 12/09/20 Recorded SARS-CoV-2 (COVID-19) mRNA BNT-162b2 vac 01/08/21 Recorded SARS-CoV-2 (COVID-19) mRNA BNT-162b2 vac 05/22/20 Given SARS-CoV-2 (COVID-19) mRNA BNT-162b2 vac 05/01/20 Given Influenza Virus Vaccine (oldterm) 11/16/19 Recorde d tetanus/diphtheria/pertussis, acel(Tdap) 3 08/23/17 Given pneumococcal 13-valent vaccine 4 03/01/17 Given 1Result Comment: [facility]-[id number] 2Result Comment: [03/01/2017] [facility] [id number] 3Result Comment: [08/23/2017] [facility] [id number] 4Result Comment: [03/01/2017] [facility] [id number] Medications BiPAP Equipment BiPAP 02/01, Maintenance, nasal mask Reliable Respiratory, 05/16/18 15:13:22 EST, Compound Start Date: 05/16/18 Status: Ordered Calcium 600 +D By Mouth, 0 Refills Start Date: 09/04/08 Stop Date: 10/04/08 Status: Ordered clonazePAM 1 mg oral tablet 1 tablet, By Mouth, 2 times a day, # 180 tablet, 1 Refills, Maintenance, 02/03/22 15:36:00 EST, [facility], 175.26, cm, 02/03/22 14:57:00 EST, Height Start Date: 02/03/22 Status: Ordered cranberry oral tablet 0 Refills, Maintenance, 09/24/16 10:41:52 Start Date: 09/24/16 Status: Ordered Flonase 50 mcg/inh nasal spray 1 sprays = 50 mcg, Nares, Both, Daily, # 16 Gm, 5 Refills, Maintenance, 01/15/20 14:58:00 EDT, [facility] [id number], 1 sprays Nares, Both Daily, 175.26, cm, 12/04/19 14:32:00 EDT, Height, 121.7, kg, 09/01/19 8:19:00 EDT, Dry Weight Start Date: 01/15/20 Status: Ordered fluconazole 150 mg oral tablet 1 tablet = 150 mg, By Mouth, Once, # 1 tablet, 0 Refills, Soft Stop, 02/26/22 15:22:00 EST, [id number] fill upon patient request if the prescription is for a schedule II opioid drug., 175.26, cm, 02/26/22 12:59:00 EST, Height Start Date: 02/26/22 Status: Ordered Hyoscyamine 0 Refills, Maintenance, 09/24/16 10:41:29 Start Date: 09/24/16 Status: Ordered hyoscyamine 0.125 mg oral tablet 0.125 mg, 1, tablet, By Mouth, Daily, PRN, # 45 tablet, Refills 3, Tot. Refills 3, Maintenance, Spasm, 11/20/20 17:39:00 EDT, Route to Pharmacy Electronically, [facility], Partial fill upon patient request if the prescription is... Start Date: 11/20/20 Status: Ordered KlonoPIN 1 mg oral tablet 1 tablet = 1 mg, By Mouth, 3 times a day, 0 Refills, Maintenance, 02/03/22 15:13:00 EST, Partial fill upon patient request if the prescription is for a schedule II opioid drug. Start Date: 02/03/22 Status: Ordered Magnesium Carbonate See Instructions, 200mg [...] Refills, Maintenance, 02/03/22 15:34:00 EST, Suspension, [facility], Partial fill upon patient request if the prescription is for a schedule II opioid drug., 175.26, c... Start Date: 02/03/22 Status: Ordered PARoxetine 20 mg oral tablet 1, tablet, By Mouth, Daily, # 90 tablet, Refills 1, Maintenance, 12/06/21 1:01:00 EDT, Route to Pharmacy Electronically, [facility], 175.26, cm, 03/25/21 7:10:00 EST, Height Start Date: 12/06/21 Status: Ordered Probiotic Formula 1 capsule, By Mouth, Daily, 0 Refills, Maintenance, 09/24/16 10:41:57 Start Date: 09/24/16 Status: Ordered propranolol 20 mg oral tablet 20 mg, 1, tablet, By Mouth, 2 times a day, Stop verapamil, # 60 tablet, Refills 5, Tot. Refills 5, Maintenance, 02/26/22 13:19:00 EST, Route to Pharmacy Electronically, [facility]/pharmacy #[id number], Partial fill upon patient request if the prescription is for a... Start Date: 02/26/22 Status: Ordered rizatriptan 10 mg oral tablet 1 tablet = 10 mg, By Mouth, Daily, PRN for migraine headache, may repeat dose every 2 hours up to amaximum of 2 doses, do not use more than 2 tabs in a week., # 9 tablet, 0 Refills, Acute 01/12/23 0:00:00 EDT, 01/12/22 17:01:00 EDT, Tablet, [facility]... Start Date: 01/12/22 Stop Date: 01/12/23 Status: Ordered simvastatin 20 mg oral tablet 1, tablet, By Mouth, Daily at bedtime, # 90 tablet, Refills 3, Route to Pharmacy Electronically, [facility], 175.26, cm, 03/25/21 [...] until resolves Start Date: 11/08/18 Status: Ordered Vitamin B2 By Mouth, Daily, [...] Active Migraine headache with aura Confirmed Active Obese class II Confirmed Active SELMA (obstructive sleep apnea) Confirmed Active Osteoarthritis, knee Confirmed Active Seasonal allergic rhinitis Confirmed Active Urinary symptom or sign Confirmed Active Venous stasis Confirmed Active Social History Social History Type Response Smoking Status Never smoker entered on: 09/24/16 Sex Patient Care team information Care Team Personnel Name: Talat Paige MD Position: [facility] Primary Care Physician Member Role: PCP Address: Address: [address] [place] [address]- Care Team Related Persons Name: ANNIE HASSAN Address: [address] [place] [address] Name: LISHA LOVE Address: [address] [place] [address]
--- OUTSIDE RECORDS SUMMARY | 2023-02-26 11:18 | XMS_ITS | Continuity of Care Document ---
Author Name Unknown Organization [facility] Address [address] [place] [address]- Care Team Providers Care Dot Net Developer Name Role Phone Grecia SEGUNDO, Talat March Primary Care Physician [phone] Encounter [facility] Date(s): 10/30/19 - 11/29/19 [facility] Adult [address] [place] [address]- [facility] Allergies, Adverse Reactions, Alerts Substance Reaction Severity Status ciprofloxacin weakness Active erythromycin [D]Nausea Active cimetidine WEAKNESS Active Tagamet [D]Nausea Active Levaquin spasms Active Seafood [D]Headache [D]Nausea Active Immunizations Given and Recorded Vaccine Date Status Refusal Reason Influenza Virus Vaccine (oldterm) 11/16/19 Recorde d influenza virus vaccine, inactivated 1 01/19/19 Gi maggie influenza virus vaccine, inactivated 01/03/18 Give n influenza virus vaccine, inactivated 2 03/01/17 Gi maggie tetanus/diphtheria/pertussis, acel(Tdap) 3 08/23/17 Given pneumococcal 13-valent vaccine 4 03/01/17 Given 1Result Comment: [facility]-[id number] 2Result Comment: [03/01/2017] [facility] 38524-867-23 3Result Comment: [08/23/2017] [facility] 66553-261-86 4Result Comment: [03/01/2017] [facility] [id number] Medications acetaminophen/butalbital/caffeine 325 mg-50 mg-40 mg oral capsule 1 capsule, By Mouth, Every 4 hours, PRN for headache, # 180 capsule, 1 Refills, Maintenance, 10/11/19 5:21:00 EDT, Capsule, [facility], 1 capsule By Mouth Every 4 hours,PRN:forheadache, 175.26, cm, 10/05/19 10:27:00 EDT, Height... Start Date: 10/11/19 Status: Ordered BiPAP Equipment BiPAP 14/10, Maintenance, nasal mask Reliable Respiratory, 05/16/18 15:13:22 EST, Compound Start Date: 05/16/18 Status: Ordered Calcium 600 +D By Mouth, 0 Refills Start Date: 09/04/08 Stop Date: 10/04/08 Status: Ordered clonazePAM 1 mg oral tablet 1 tablet, By Mouth, 2 times a day, # 180 tablet, 1 Refills, Maintenance, 10/05/19 12:06:00 EDT, [facility], 175.26, cm, 10/05/19 10:27:00 EDT, Height, 121.7, kg, 09/01/19 8:19:00 EDT, Dry Weight Start Date: 10/05/19 Status: Ordered cranberry oral tablet 0 Refills, Maintenance, 09/24/16 10:41:52 Start Date: 09/24/16 Status: Ordered Dilaudid 2 mg oral tablet 1 tablet = 2 mg, By Mouth, Every 4 hours, PRN for pain, # 18 tablet, 0 Refills, Maintenance, 09/01/19 10:16:00 EDT, Tablet, [facility], Partial fill upon patient request, 175.26, cm,09/01/19 8:19:00 EDT, Height, 121.7, kg, 09/01/19 8... Start Date: 09/01/19 Status: Ordered Flonase 50 mcg/inh nasal spray 1 sprays = 50 mcg, Nares, Both, Daily, # 16 Gm, 5 Refills, Maintenance, 11/08/18 11:12:34 EDT, Nasal [place], 1 sprays Nares, Both Daily Start Date: 11/08/18 Status: Ordered Hyoscyamine 0 Refills, Maintenance, 09/24/16 10:41:29 Start Date: 09/24/16 Status: Ordered Multivitamin Tablet 1 tablet, By Mouth, Daily, 0 Refills Start Date: 09/04/08 Stop Date: 10/04/08 Status: Ordered omeprazole 20 mg oral enteric coated capsule 1 capsule, By Mouth, Daily, # 90 capsule, 3 Refills, Maintenance, 10/05/19 12:07:00 EDT, [facility], 175.26, cm, 10/05/19 10:27:00 EDT, Height, 121.7, kg, 09/01/19 8:19:00 EDT,Dry Weight Start Date: 10/05/19 Status: Ordered PARoxetine 20 mg oral tablet 1, tablet, By Mouth, Daily, # 90 tablet, Refills 3, Tot. Refills 3, Maintenance, 06/23/19 11:03:00 EDT, Route to Pharmacy Electronically, [facility], 162.56, cm, 11/08/18 10:49:00 EDT, Height [...] tablet, Refills 3, Tot. Refills 3, Maintenance, 10/05/19 12:07:00 EDT, Route to Pharmacy Electronically, [facility], 175.26, cm, 10/05/19 10:27:00 EDT, Height, 121.7, kg, ... Start Date: 10/05/19 Status: Ordered triamcinolone topical 0.1% paste See [...] Daily, # 90 capsule, 3 Refills, Maintenance, 10/05/19 12:07:00 EDT, CR Capsule, [facility], 175.26, cm, 10/05/19 10:27:00 EDT, Height, 121.7, kg, 09/01/19 8:19:00 EDT, Dry Weight Start Date: 10/05/19 Status: Ordered Zofran 4 mg oral tablet 1 tablet = 4 mg, By Mouth, Every 8 hours, PRN Nausea & Vomiting, # 10 tablet, 0 Refills, Maintenance, 09/01/19 10:18:00 EDT, Tablet, [facility], 175.26, cm, 09/01/19 8:19:00 EDT,Height, 121.7, kg, [...]
--- OUTSIDE RECORDS SUMMARY | 2023-02-26 11:18 | XMS_ITS | Continuity of Care Document ---
Author Name Unknown Organization [facility] Address Unknown Care Team Providers Care Retail Merchandising Specialist Name Role Phone Grecia SEGUNDO, Talat March Primary Care Physician Encounter [facility] Date(s): 01/14/21 - 05/14/21 [facility] Attending Physician: Deepa Patel MD Admitting Physician: Deepa Patel MD Referring Physician: Talat Paige MD Allergies, Adverse Reactions, Alerts Substance Reaction Severity Status ciprofloxacin weakness Active erythromycin [D]Nausea Active cimetidine WEAKNESS Active Tagamet [D]Nausea Active Levaquin spasms Active Seafood [D]Headache [D]Nausea Active Immunizations Given and Recorded Vaccine Date Status Refusal Reason influenza virus vaccine, inactivated 12/16/20 Rboles rded influenza virus vaccine, inactivated 1 01/19/19 Gi maggie influenza virus vaccine, inactivated 01/03/18 Give n influenza virus vaccine, inactivated 2 03/01/17 Gi maggie zoster vaccine, inactivated 12/09/20 Recorded SARS-CoV-2 (COVID-19) mRNA BNT-162b2 vac 05/22/20 Given SARS-CoV-2 (COVID-19) mRNA BNT-162b2 vac 05/01/20 Given Influenza Virus Vaccine (oldterm) 11/16/19 Recorde d tetanus/diphtheria/pertussis, acel(Tdap) 3 08/23/17 Given pneumococcal 13-valent vaccine 4 03/01/17 Given 1Result Comment: [facility]-[id number] 2Result Comment: [03/01/2017] [facility] 06270-589-90 3Result Comment: [08/23/2017] [facility] 17562-022-75 4Result Comment: [03/01/2017] [facility] [id number] Medications acetaminophen/butalbital/caffeine 325 mg-50 mg-40 mg oral capsule 1 capsule, By Mouth, Every 4 hours, PRN NEEDED FOR HEADACHE, # 180 capsule, 3 Refills, Acute 11/20/21 17:41:00 EDT, 11/20/20 17:41:00 EDT, [facility], 30, 1 capsule By MouthEvery 4 [...] tablet, 1 Refills, Maintenance, 11/20/20 17:38:00 EDT, [facility], 175.26, cm, 11/20/20 14:07:00 EDT, Height, 121.7, kg, 09/01/19 8:19:00 EDT, Dry Weight Start Date: 11/20/20 Status: Ordered cranberry oral tablet 0 Refills, Maintenance, 09/24/16 10:41:52 Start Date: 09/24/16 Status: Ordered Flonase 50 mcg/inh nasal spray 1 sprays = 50 mcg, Nares, Both, Daily, # 16 Gm, 5 Refills, Maintenance, 01/15/20 14:58:00 EDT, Nasal [place], [facility]/pharmacy #[id number], 1 sprays Nares, Both Daily, 175.26, [...] 11/20/20 17:39:00 EDT, Route to Pharmacy Electronically, [facility], Partial fill upon patient request if the prescription is... Start Date: 11/20/20 Status: Ordered Multivitamin Tablet 1 tablet, By Mouth, Daily, 0 Refills Start Date: 09/04/08 Stop Date: 10/04/08 Status: Ordered omeprazole 20 mg oral enteric coated capsule 1 capsule, By Mouth, Daily, # 90 capsule, 3 Refills, Maintenance, 11/20/20 17:40:00 EDT, [facility], 175.26, cm, 11/20/20 14:07:00 EDT, Height, 121.7, kg, 09/01/19 8:19:00 EDT,Dry Weight Start Date: 11/20/20 Status: Ordered PARoxetine 20 mg oral tablet 1, tablet, By Mouth, Daily, # 90 tablet, Refills 1, Route to Pharmacy Electronically, [facility], 175.26, cm, 11/20/20 14:07:00 EDT, Height, [...] 11/20/21 17:41:00 EDT, 11/20/20 17:40:00 EDT, Tablet, [facility], Partial fill upon patient request if the prescription is for a schedule II opi... Start Date: 11/20/20 Stop Date: 11/20/21 Status: Ordered simvastatin 20 mg oral tablet 1, tablet, By Mouth, Daily at bedtime, # 90 tablet, Refills 3, Tot. Refills 0, Maintenance, 09/03/20 16:49:00 EDT, Route to Pharmacy Electronically, [facility], 175.26, cm, 12/04/19 14:32:00 EDT, [...] capsule, 3 Refills, Maintenance, 09/03/20 16:49:00 EDT, [facility], 175.26, cm, 12/04/19 14:32:00 EDT, [...]
--- OUTSIDE RECORDS SUMMARY | 2023-02-26 11:18 | XMS_ITS | Continuity of Care Document ---
Author Name Unknown Organization [facility] Address [address] [facility] [place] [address]- Care Team Providers Care Leather Colorer Name Role Phone Grecia SEGUNDO, Talat March Primary Care Physician Encounter 11/05/22 - 11/12/22 [facility] [address], [address] [place] [address]- Attending Physician: Shanda SEGUNDO, Bebeto Bernstein Admitting Physician: Bebeto Land MD Referring Physician: Bebeto Land MD Allergies, Adverse Reactions, Alerts Substance Reaction Severity Status ciprofloxacin weakness Active erythromycin [D]Nausea Active cimetidine WEAKNESS Active Tagamet [D]Nausea Active Seafood [D]Headache [D]Nausea Active Levaquin spasms Active Immunizations Given and Recorded Vaccine Date Status Refusal Reason pneumococcal 23-valent vaccine 1 05/07/22 Given influenza virus vaccine, inactivated 01/12/22 Robles rded influenza virus vaccine, inactivated 12/16/20 Robles rded influenza virus vaccine, inactivated 2 01/19/19 Gi maggie influenza virus vaccine, inactivated 01/03/18 Give n influenza virus vaccine, inactivated 3 03/01/17 Gi maggie SARS-CoV-2 mRNA ([id number]) vax 09/16/21 Recorded zoster vaccine, inactivated 04/14/21 Recorded zoster vaccine, inactivated 12/09/20 Recorded SARS-CoV-2 (COVID-19) mRNA BNT-162b2 vac 01/08/21 Recorded SARS-CoV-2 (COVID-19) mRNA BNT-162b2 vac 05/22/20 Given SARS-CoV-2 (COVID-19) mRNA BNT-162b2 vac 05/01/20 Given Influenza Virus Vaccine (oldterm) 11/16/19 Recorde d tetanus/diphtheria/pertussis, acel(Tdap) 4 08/23/17 Given pneumococcal 13-valent vaccine 5 03/01/17 Given 1Result Comment: [id number] 2Result Comment: [facility]-[id number] 3Result Comment: [03/01/2017] [facility] 22848-675-67 4Result Comment: [08/23/2017] [facility] 16928-125-15 5Result Comment: [03/01/2017] [facility] [id number] Medications Calcium 600 +D By Mouth, 0 Refills Start Date: 09/04/08 Stop Date: 10/04/08 Status: Ordered clonazePAM 1 mg oral tablet 1 tablet, By Mouth, 2 times a day, # 180 tablet, 1 Refills, Maintenance, 09/16/22 8:47:00 EDT, [facility], 175.26, cm, 06/29/22 11:56:00 EDT, Height Start Date: 09/16/22 Status: Ordered cranberry oral tablet 0 Refills, Maintenance, 09/24/16 10:41:52 Start Date: 09/24/16 Status: Ordered Flonase 50 mcg/inh nasal spray 1 sprays = 50 mcg, Nares, Both, Daily, # 16 Gm, 5 Refills, Maintenance, 01/15/20 14:58:00 EDT, Nasal [place], [facility]/pharmacy #[id number], 1 sprays Nares, Both Daily, 175.26, cm, 12/04/19 14:32:00 EDT, Height, 121.7, kg, 09/01/19 8:19:00 EDT, Dry Weight Start Date: 01/15/20 Status: Ordered hyoscyamine 0.125 mg oral tablet 0.125 mg, 1, tablet, By Mouth, Daily, PRN, # 45 tablet, Refills 3, Tot. Refills 3, Maintenance, Spasm, 11/20/20 17:39:00 EDT, Route to Pharmacy Electronically, [facility], Partial fill upon patient request [...] Stop Date: 10/04/08 Status: Ordered nystatin topical 804903 u/gm powder 1 application, Topically, 2 times a day, Apply to affected areas twice a day., # 60 Gm, 5 Refills, Acute 05/07/23 14:21:00 EST, 05/07/22 14:21:00 EST, Powder, [facility], 1 application Topically 2 times a day,Instr:Apply to affe... Start Date: 05/07/22 Stop Date: 05/07/23 Status: Ordered omeprazole 40 mg oral enteric coated capsule 1 capsule = 40 mg, By Mouth, 2 times a day, # 180 capsule, 3 Refills, Maintenance, 02/03/22 15:34:00 EST, Suspension, [facility], Partial fill upon patient request if the prescription is for a schedule II opioid drug., 175.26, c... Start Date: 02/03/22 Status: Ordered PARoxetine 20 mg oral tablet 1, tablet, By Mouth, Daily, # 90 tablet, Refills 1, Maintenance, 10/09/22 8:07:00 EDT, Route to Pharmacy Electronically, [facility], 175.26, cm, 06/29/22 11:56:00 EDT, Height Start Date: 10/09/22 Status: Ordered Probiotic Formula 1 capsule, By Mouth, Daily, 0 Refills, Maintenance, 09/24/16 10:41:57 Start Date: 09/24/16 Status: Ordered propranolol 20 mg oral tablet 20 mg, 1, tablet, By Mouth, 2 times a day, Stop verapamil, # 60 tablet, Refills 9, Tot. Refills 9, Maintenance, 06/29/22 11:50:00 EDT, Route to Pharmacy Electronically, [facility], Partial fill upon patient request if the prescr... Start Date: 06/29/22 Status: Ordered rizatriptan 10 mg oral tablet 1 tablet = 10 mg, By Mouth, Daily, PRN Migraine Headache, may repeat dose in 2 hours if needed, do not exceed 2 doses in 24 hours, # 9 tablet, 5 Refills, Acute 08/11/23 0:00:00 EDT, 08/10/22 18:20:00EDT, [facility]/pharmacy #[id number], Partial fill upon patient... Start Date: 08/10/22 Stop Date: 08/11/23 Status: Ordered simvastatin 20 mg oral tablet 1, tablet, By Mouth, Daily at bedtime, # 90 tablet, Refills 1, Maintenance, 10/09/22 8:07:00 EDT, Route to Pharmacy Electronically, [facility], 175.26, cm, 06/29/22 11:56:00 EDT, Height Start Date: 10/09/22 Status: Ordered ubrogepant 100 mg oral tablet 1 tablet = 100 mg, By Mouth, Daily, PRN Headache, # 9 tablet, 0 Refills, Soft Stop, 08/10/22 18:12:00 EDT, [facility]/pharmacy #[id number], Partial fill upon patient request if [...] sign Confirmed Active Venous stasis Confirmed Active Results Radiology Reports * Exam Date Time Procedure Performing Provider Status 11/05/22 11:11 AM MM Digital Mammo Screening Sylvia Gomez; Auth (Verified) Notes: (MM Digital Mammo Screening) Reason For Exam: Z12.31 SCREENING RESULT: MM Digital Mammo Screening PROCEDURE: MM Digital Mammo Screening INDICATION: Screening for breast cancer. COMPARISON: Multiple priors, most recent 10/27/2021 TECHNIQUE: Full-field digital CC and MLO 3D tomosynthesis images of both breasts were acquired. Computer-aided detection (CAD) was utilized in the interpretation of this study. DENSITY: The breast tissue is almost entirely fatty. FINDINGS: No suspicious masses, suspicious microcalcifications, or areas of architectural distortion are seen in either breast to suggest malignancy. IMPRESSION: No mammographic evidence of malignancy. RECOMMENDATION: Annual mammographic screening BI-RADS: 1 (Negative) Lay letter mailed to patient WSN: [id number] Ordering Physician: Bebeto Land MD Dictated By: Luis Valdez MD Dictated Date/Time: 11/05/22 12:34 pm Reviewed By: Luis Valdez MD Signed By: Luis Valdez MD Signed Date/Time: 11/05/22 12:34 pm Transcribed By: ANKIT Pressed Or Blown Glass Worker Date/Time: 11/05/22 12:31 pm Birads: Social History Social History Type Response Smoking Status Never smoker entered on: 09/24/16 Sex Patient Care team information Care Team Personnel Name: Talat Paige MD Position: S Physician - Primary Care Member Role: PCP Address: Address: [address] [place] [address]- Care Team Related Persons Name: ANNIE HASSAN Address: home [address] [place] [address] Name: LISHA LOVE Address: home [address] [place] [address]
--- OUTSIDE RECORDS SUMMARY | 2023-02-26 11:18 | XMS_ITS | Continuity of Care Document ---
Author Name Unknown Organization [facility] Address [address] [place] [address]- Care Team Providers Care Patient Relations Manager Name Role Phone Grecia SEGUNDO, Talat March Primary Care Physician [facility] Date(s): 11/30/19 - 12/30/19 [facility] [address] [place] [address]- [facility] Attending Physician: Vitor Asencio Admitting Physician: AdmtrVitor Referring Physician: Admtr, Ar8 Allergies, Adverse Reactions, Alerts Substance Reaction Severity Status ciprofloxacin weakness Active cimetidine WEAKNESS Active Levaquin spasms Active erythromycin [D]Nausea Active Tagamet [D]Nausea Active Seafood [D]Headache [D]Nausea Active Immunizations Given and Recorded Vaccine Date Status Refusal Reason Influenza Virus Vaccine (oldterm) 11/16/19 Recorde d influenza virus vaccine, inactivated 1 01/19/19 Gi maggie influenza virus vaccine, inactivated 01/03/18 Give n influenza virus vaccine, inactivated 2 03/01/17 Gi maggie tetanus/diphtheria/pertussis, acel(Tdap) 3 08/23/17 Given pneumococcal 13-valent vaccine 4 03/01/17 Given 1Result Comment: [facility]-[id number] 2Result Comment: [03/01/2017] [facility] 13612-563-30 3Result Comment: [08/23/2017] [facility] 17397-272-27 4Result Comment: [03/01/2017] [facility] 4658-7045-64 Medications acetaminophen/butalbital/caffeine 325 mg-50 mg-40 mg oral capsule 1 capsule, By Mouth, Every 4 hours, PRN for headache, # 180 capsule, 1 Refills, Maintenance, 10/11/19 5:21:00 EDT, Capsule, [facility], 1 capsule By Mouth Every 4 [...] tablet, 1 Refills, Maintenance, 10/05/19 12:06:00 EDT, [facility], 175.26, cm, 10/05/19 10:27:00 EDT, Height, 121.7, kg, 09/01/19 8:19:00 EDT, Dry Weight Start Date: 10/05/19 Status: Ordered cranberry oral tablet 0 Refills, Maintenance, 09/24/16 10:41:52 Start Date: 09/24/16 Status: Ordered Dilaudid 2 mg oral tablet 1 tablet = 2 mg, By Mouth, Every 4 hours, PRN for pain, # 18 tablet, 0 Refills, Maintenance, 09/01/19 10:16:00 EDT, Tablet, [facility], Partial fill upon patient request, 175.26, cm,09/01/19 8:19:00 EDT, Height, 121.7, kg, 09/01/19 8... Start Date: 09/01/19 Status: Ordered Flonase 50 mcg/inh nasal spray 1 sprays = 50 mcg, Nares, Both, Daily, # 16 Gm, 5 Refills, Maintenance, 11/08/18 11:12:34 EDT, Nasal [place], 1 sprays Nares, Both Daily Start Date: 11/08/18 Status: Ordered Hyoscyamine 0 Refills, Maintenance, 09/24/16 10:41:29 Start Date: 09/24/16 Status: Ordered Multivitamin Tablet 1 tablet, By Mouth, Daily, 0 Refills Start Date: 09/04/08 Stop Date: 10/04/08 Status: Ordered omeprazole 20 mg oral enteric coated capsule 1 capsule, By Mouth, Daily, # 90 capsule, 3 Refills, Maintenance, 10/05/19 12:07:00 EDT, [facility], 175.26, cm, 10/05/19 10:27:00 EDT, Height, 121.7, kg, 09/01/19 8:19:00 EDT,Dry Weight Start Date: 10/05/19 Status: Ordered PARoxetine 20 mg oral tablet 1, tablet, By Mouth, Daily, # 90 tablet, Refills 3, Tot. Refills 3, Maintenance, 06/23/19 11:03:00 EDT, Route to Pharmacy Electronically, [facility], 162.56, cm, 11/08/18 10:49:00 EDT, Height [...] 10/05/19 12:07:00 EDT, Route to Pharmacy Electronically, [facility], 175.26, cm, 10/05/19 10:27:00 EDT, Height, [...] Refills, Maintenance, 10/05/19 12:07:00 EDT, CR Capsule, [facility], 175.26, cm, 10/05/19 10:27:00 EDT, Height, 121.7, kg, 09/01/19 8:19:00 EDT, Dry Weight Start Date: 10/05/19 Status: Ordered Zofran 4 mg oral tablet 1 tablet = 4 mg, By Mouth, Every 8 hours, PRN Nausea & Vomiting, # 10 tablet, 0 Refills, Maintenance, 09/01/19 10:18:00 EDT, Tablet, [facility], 175.26, cm, 09/01/19 8:19:00 EDT,Height, 121.7, [...]
--- OUTSIDE RECORDS SUMMARY | 2023-02-26 11:18 | XMS_ITS | Continuity of Care Document ---
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 Role Phone Talat Paige MD Primary Care Physician Encounter [facility] [place] Date(s): 02/26/22 - 03/05/22 [facility] [address] [place] [address]- Encounter Diagnosis Respiratory symptoms(Discharge Diagnosis) - 02/26/22 Chronic migraine with aura(Discharge Diagnosis) - 02/26/22 Attending Physician: Talat Paige MD Allergies, Adverse Reactions, [...] inactivated 2 03/01/17 Gi maggie SARS-CoV-2 mRNA ([id number]) vax 09/16/21 Recorded zoster vaccine, inactivated 04/14/21 Recorded zoster vaccine, inactivated 12/09/20 Recorded SARS-CoV-2 (COVID-19) mRNA BNT-162b2 vac 01/08/21 Recorded SARS-CoV-2 (COVID-19) mRNA BNT-162b2 vac 05/22/20 Given SARS-CoV-2 (COVID-19) mRNA BNT-162b2 vac 05/01/20 Given Influenza Virus Vaccine (oldterm) 11/16/19 Recorde d tetanus/diphtheria/pertussis, acel(Tdap) 3 08/23/17 Given pneumococcal 13-valent vaccine 4 03/01/17 Given 1Result Comment: [facility]-[id number] 2Result Comment: [03/01/2017] [facility] [id number] 3Result Comment: [08/23/2017] [facility] 10517-141-93 4Result Comment: [03/01/2017] [facility] [id number] Medications BiPAP Equipment BiPAP 02/01, Maintenance, nasal mask Reliable Respiratory, 05/16/18 15:13:22 EST, Compound Start Date: 05/16/18 Status: Ordered Calcium 600 +D By Mouth, 0 Refills Start Date: 09/04/08 Stop Date: 10/04/08 Status: Ordered clonazePAM 1 mg oral tablet 1 tablet, By Mouth, 2 times a day, # 180 tablet, 1 Refills, Maintenance, 02/03/22 15:36:00 EST, [facility], 175.26, cm, 02/03/22 14:57:00 EST, Height Start Date: 02/03/22 Status: Ordered cranberry oral tablet 0 Refills, Maintenance, 09/24/16 10:41:52 Start Date: 09/24/16 Status: Ordered Flonase 50 mcg/inh nasal spray 1 sprays = 50 mcg, Nares, Both, Daily, # 16 Gm, 5 Refills, Maintenance, 01/15/20 14:58:00 EDT, Nasal [place], [facility]/pharmacy #[id number], 1 sprays Nares, Both Daily, 175.26, cm, 12/04/19 14:32:00 EDT, Height, 121.7, kg, 09/01/19 8:19:00 EDT, Dry Weight Start Date: 01/15/20 Status: Ordered fluconazole 150 mg oral tablet 1 tablet = 150 mg, By Mouth, Once, # 1 tablet, 0 Refills, Soft Stop, 02/26/22 15:22:00 EST, Tablet,[facility]/pharmacy #[id number], Partial fill upon patient request if [...] 12/06/21 1:01:00 EDT, Route to Pharmacy Electronically, [facility], 175.26, cm, 03/25/21 7:10:00 [...] 02/26/22 13:19:00 EST, Route to Pharmacy Electronically, [facility]/pharmacy #[id number], Partial fill upon patient request if [...] 01/12/23 0:00:00 EDT, 01/12/22 17:01:00 EDT, Tablet, [facility]... Start Date: 01/12/22 Stop Date: 01/12/23 Status: Ordered simvastatin 20 mg oral tablet 1, tablet, By Mouth, Daily at bedtime, # 90 tablet, Refills 3, Route to Pharmacy Electronically, [facility], 175.26, cm, 03/25/21 7:10:00 [...] sign Confirmed Active Venous stasis Confirmed Active Diagnosis Diagnosis Type Effective Dates Health Status Clinical Service Informant Respiratory symptoms Discharge Diagnosis 02/26/22 Chronic migraine with aura Discharge Diagnosis 02/26/22 Vital Signs Most recent to oldest [Reference Range]: 1 2 Height 175.26 cm (02/26/22 12:59 PM) 175.26 cm (02/26/22 12:54 PM) Weight 120.0 kg (02/26/22 12:54 PM) Oxygen Saturation [94-100 %] 95 % (02/26/22 12:54 PM) Pulse Rate [55-90 bpm] 76 bpm (02/26/22 12:54 PM) Body Mass Index [18.5-24.99 kg/m2] 39.07 kg/m2 *>HHI* (02/26/22 12:54 PM) Blood Pressure [90-138/55-84 mm Hg] 124/ 73mm Hg (02/26/22 12:59 PM) 139/75mm Hg *H* (02/26/22 12:54 PM) Temperature [96.8-100.4 DegF] 98.2 DegF (02/26/22 12:54 PM) Mode of Delivery (Oxygen) Room air (02/26/22 12:54 PM) Blood pressure sites Arm, left (02/26/22 12:59 PM) Arm, left (02/26/22 12:54 PM) Weight Obtained Via Standing scale (02/26/22 12:54 PM) Social History Social History Type Response Smoking Status Never smoker entered on: 09/24/16 Sex Note * Mary Beth Recio: PERFORM, SIGN, VERIFY Event Display: Patient Education/Instruction Authored Date: [id number] [facility] *BMP So [place] Clinical Summary Name MANDEEP LOVE Age 76 Years 1945 PCP Grecia SEGUNDO, Talat March PCP Visit Date 02/26/2022 12:49:00 Additional Instructions: Scheduled Appointments?? Future Appointments ?*[facility] ?Phone:??--?Fax:??-- ?Appt. Date:??02/27/2022?1:30 PM ?Scheduled Provider:??Chon RUANO , Delma Maurer ?*[facility] [address] ?Phone:??--?Fax:??-- ?Appt. Date:??05/07/2022?1:50 PM ?Scheduled Provider:??Grecia SEGUNDO, Talat March Follow-Up Instructions ?? Diagnosis Medications: Please continue your medications until treatment is completed or stopped by your provider. Discuss any questions related to medications with your provider. New Medications [id number], [address], [place] [phone], [phone] Propranolol (propranolol 20 mg oral tablet) 1 tab(s) Oral twice a day. Stop verapamil. Refills: 5. Next Dose: Medications to Continue with No Changes These medications were not printed or sent to your pharmacy bifidobacterium-lactobacillus (Probiotic Formula) 1 capsule Oral Daily. Next Dose: Calcium And Vitamin D Combination (Calcium 600 +D) Oral. Next Dose: Clonazepam (clonazePAM 1 mg oral tablet) 1 tab(s) Oral twice a day. Refills: 1. Next Dose: Clonazepam (KlonoPIN 1 mg oral tablet) 1 tab(s) Oral 3 times a day. Next Dose: Cranberry (cranberry oral tablet) Next Dose: Durable Medical Equipment (BiPAP Equipment) BiPAP 14/10. nasal mask Reliable Respiratory. Next Dose: Fluticasone Nasal (Flonase 50 mcg/inh nasal spray) 1 spray(s) Nares, Both Daily. Refills: 5. Next Dose: Hyoscyamine Next Dose: Hyoscyamine (hyoscyamine 0.125 mg oral tablet) 1 tab(s) Oral Daily as needed Spasm. Refills: 3. Next Dose: Magnesium Carbonate 200mg bid. Next Dose: Multivitamin (Multivitamin Tablet) 1 tab(s) Oral Daily. Next Dose: Omeprazole (omeprazole 40 mg oral enteric coated capsule) 1 capsule Oral twice a day. Refills: 3. Next Dose: Paroxetine (PARoxetine 20 mg oral tablet) 1 tab(s) Oral Daily. Refills: 1. Next Dose: Riboflavin (Vitamin B2) Oral Daily. Next Dose: Rizatriptan (rizatriptan 10 mg oral tablet) 1 tab(s) Oral Daily as needed for migraine headache. may repeat dose every 2 hours up to a maximum of 2 doses, do not use more than 2 tabs in a week.. Refills: 0. Next Dose: Simvastatin (simvastatin 20 mg oral tablet) 1 tab(s) Oral Daily at Bedtime. Refills: 3. Next Dose: Triamcinolone Topical (triamcinolone topical 0.1% paste) Apply to affected lesions at corners of mouth tid until resolves. Refills: 2. Next Dose: No Longer Take the Following Medications Verapamil (verapamil 180 mg oral capsule, extended release) 1 capsule Oral Daily. Refills: 3. Allergy Info:?? Seafood; Levaquin; Tagamet; cimetidine; erythromycin; ciprofloxacin Medications Given This Visit Future Orders ?No future orders Vital Signs Height 175.26 cm Weight 120.0 kg BMI 39.07 kg/m2 Blood Pressure 124 mm Hg/73 mm Hg Temperature 98.2 DegF Pulse Rate 76 bpm Respiratory Rate 02 Sat Mode of Delivery 95 %/Room air You can now view a summary of your hospital visit from the comfort of your home through a free online portal called [employer]. [employer] is a website that allows you to securely view your medical information including discharge summary, medications and follow-up visits. ??You can alsosend a secure electronic message to your doctor???s office to request appointments, renew medications or just ask a question. You can enroll at [email or web address] or register during your next office visit. Disclaimer:?? The information provided is of a general nature and is intended to be used in conjunction with the recommendations and advice of your health care practitioner. ??Every effort has been made to ensure that the information provided is accurate and complete at the time it is provided to you however, as your needs change, or, as new ??information becomes available, different or additional instructions may be required. If you have questions, please consult with your primary care provider or pharmacist, as appropriate. ??This information is not intended to serve as substitution for assessment and evaluation by a qualified health care provider. If you do not have a primary care provider, you may find a [facility] provider by calling [facility] [employer] [facility] at [phone]. For information about the plan of care including goals and instructions for your diagnosis, please see the patient education orders section of this document. Patient Education Materials?? The content of this educational material or handout may have been modified, supplemented, or adapted from its original content and format to support your individualized medical care. Patient Care team information Care Team Personnel Name: Grecia SEGUNDO, Talat March Position: [facility] Primary Care Physician Member Role: PCP Address: Address: [address] [place] [address]- Care Team Related Persons Name: ANNIE HASSAN Address: home [address] [place] [address] Name: LISHA LOVE Address: home [address] [place] [address]
--- OUTSIDE RECORDS SUMMARY | 2023-02-26 11:19 | XMS_ITS | Continuity of Care Document ---
Author Name Unknown Organization [facility] Address [address] [place] [address]- Care Team Providers Care Vp Legal Affairs Name Role Phone Grecia SEGUNDO, Talat March Primary Care Physician Encounter 10/25/20 - 11/01/20 [facility] [address], [address] [place] [address]- Attending Physician: Shanda SEGUNDO, Bebeto Bernstein Admitting Physician: Bebeto Land MD Referring Physician: Bebeto Land MD Allergies, Adverse Reactions, Alerts Substance Reaction Severity Status ciprofloxacin weakness Active erythromycin [D]Nausea Active cimetidine WEAKNESS Active Tagamet [D]Nausea Active Levaquin spasms Active Seafood [D]Headache [D]Nausea Active Immunizations Given and Recorded Vaccine Date Status Refusal Reason SARS-CoV-2 (COVID-19) mRNA BNT-162b2 vac 05/22/20 Given SARS-CoV-2 (COVID-19) mRNA BNT-162b2 vac 05/01/20 Given Influenza Virus Vaccine (oldterm) 11/16/19 Recorde d influenza virus vaccine, inactivated 1 01/19/19 Gi maggie influenza virus vaccine, inactivated 01/03/18 Give n influenza virus vaccine, inactivated 2 03/01/17 Gi maggie tetanus/diphtheria/pertussis, acel(Tdap) 3 08/23/17 Given pneumococcal 13-valent vaccine 4 03/01/17 Given 1Result Comment: [facility]-[id number] 2Result Comment: [03/01/2017] [facility] [id number] 3Result Comment: [08/23/2017] [facility] [id number] 4Result Comment: [03/01/2017] [facility] [id number] Medications acetaminophen/butalbital/caffeine 325 mg-50 mg-40 mg oral capsule 1 capsule, By Mouth, Every 4 hours, PRN NEEDED FOR HEADACHE, # 180 capsule, 1 Refills, Acute, 09/03/20 16:49:00 EDT, [facility], 30, TAKE 1 CAPSULE EVERY 4 HOURS NEEDED FOR HEADACHE, 175.26, cm, 12/04/19 14:3... Start Date: 09/03/20 Status: Ordered BiPAP Equipment BiPAP 02/01, Maintenance, nasal mask Reliable Respiratory, 05/16/18 15:13:22 EST, Compound Start Date: 05/16/18 Status: Ordered Calcium 600 +D By Mouth, 0 Refills Start Date: 09/04/08 Stop Date: 10/04/08 Status: Ordered clonazePAM 1 mg oral tablet 1 tablet, By Mouth, 2 times a day, # 180 tablet, 1 Refills, Maintenance, 04/10/20 11:24:00 EST, [facility], 175.26, cm, 12/04/19 14:32:00 EDT, Height, 121.7, kg, 09/01/19 8:19:00 EDT, Dry Weight Start Date: 04/10/20 Status: Ordered cranberry oral tablet 0 Refills, Maintenance, 09/24/16 10:41:52 Start Date: 09/24/16 Status: Ordered Dilaudid 2 mg oral tablet 1 tablet = 2 mg, By Mouth, Every 4 hours, PRN for pain, # 18 tablet, 0 Refills, Maintenance, 09/01/19 10:16:00 EDT, Tablet, [facility], Partial fill upon patient request, 175.26, cm,09/01/19 8:19:00 EDT, Height, 121.7, kg, 09/01/19 8... Start Date: 09/01/19 Status: Ordered Flonase 50 mcg/inh nasal spray 1 sprays = 50 mcg, Nares, Both, Daily, # 16 Gm, 5 Refills, Maintenance, 01/15/20 14:58:00 EDT, Nasal [place], [facility]/pharmacy #[id number], 1 sprays Nares, Both Daily, 175.26, cm, 12/04/19 14:32:00 EDT, Height, 121.7, kg, 09/01/19 8:19:00 EDT, Dry Weight Start Date: 01/15/20 Status: Ordered Hyoscyamine 0 Refills, Maintenance, 09/24/16 10:41:29 Start Date: 09/24/16 Status: Ordered ketoconazole 2% topical shampoo 1 application, Topically, Every Wednesday, Wednesday and Wednesday, Three times weekly, # 120 mL, 5 Refills, Soft Stop, 04/10/20 11:31:00 EST, Shampoo, [facility]/pharmacy #[id number], Partial fill upon patient requestif the prescription is for a schedule II opioid easton... Start Date: 04/10/20 Status: Ordered Multivitamin Tablet 1 tablet, By Mouth, Daily, 0 Refills Start Date: 09/04/08 Stop Date: 10/04/08 Status: Ordered omeprazole 20 mg oral enteric coated capsule 1 capsule, By Mouth, Daily, # 90 capsule, 3 Refills, Maintenance, 10/05/19 12:07:00 EDT, [facility], 175.26, cm, 10/05/19 10:27:00 EDT, Height, 121.7, kg, 09/01/19 8:19:00 EDT,Dry Weight Start Date: 10/05/19 Status: Ordered PARoxetine 20 mg oral tablet 1, tablet, By Mouth, Daily, # 90 tablet, Refills 3, Tot. Refills 3, Maintenance, 04/10/20 11:24:00 EST, Route to Pharmacy Electronically, [facility], 175.26, cm, 12/04/19 14:32:00 EDT, Height, 121.7, kg, 09/01/19 8:19:00 EDT, Start Date: 04/10/20 Status: Ordered Probiotic Formula 1 capsule, By [...] 09/03/20 16:49:00 EDT, Route to Pharmacy Electronically, [facility], 175.26, cm, 12/04/19 14:32:00 EDT, [...] capsule, 3 Refills, Maintenance, 09/03/20 16:49:00 EDT, [facility], 175.26, cm, 12/04/19 14:32:00 EDT, Height, 121.7, kg, 09/01/19 8:19:00 EDT, DryWeight Start Date: 09/03/20 Status: Ordered Zofran 4 mg oral tablet 1 tablet = 4 mg, By Mouth, Every 8 hours, PRN Nausea & Vomiting, # 10 tablet, 0 Refills, Maintenance, 09/01/19 10:18:00 EDT, Tablet, [facility], 175.26, cm, 09/01/19 8:19:00 EDT,Height, 121.7, kg, [...]
--- OUTSIDE RECORDS SUMMARY | 2023-02-26 11:19 | XMS_ITS | Continuity of Care Document ---
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 Role Phone Grecia SEGUNDO, Talat Marhc Primary Care Physician Encounter [facility] [place] Date(s): 02/27/22 - 03/06/22 [facility] [address] [address]- Attending Physician: Ivy Marques MD Admitting Physician: Ivy Marques MD Referring Physician: Talat Paige MD Allergies, [...] inactivated 2 03/01/17 Gi maggie SARS-CoV-2 mRNA ([id number]) vax 09/16/21 Recorded zoster vaccine, inactivated 04/14/21 Recorded zoster vaccine, inactivated 12/09/20 Recorded SARS-CoV-2 (COVID-19) mRNA BNT-162b2 vac 01/08/21 Recorded SARS-CoV-2 (COVID-19) mRNA BNT-162b2 vac 05/22/20 Given SARS-CoV-2 (COVID-19) mRNA BNT-162b2 vac 05/01/20 Given Influenza Virus Vaccine (oldterm) 11/16/19 Recorde d tetanus/diphtheria/pertussis, acel(Tdap) 3 08/23/17 Given pneumococcal 13-valent vaccine 4 03/01/17 Given 1Result Comment: [facility]-[id number] 2Result Comment: [03/01/2017] [facility] [id number] 3Result Comment: [08/23/2017] [facility] [id number] 4Result Comment: [03/01/2017] [facility] [id number] Medications BiPAP Equipment BiPAP 02/01, Maintenance, nasal mask Reliable Respiratory, 05/16/18 15:13:22 EST, Compound Start Date: 05/16/18 Status: Ordered Calcium 600 +D By Mouth, 0 Refills Start Date: 09/04/08 Stop Date: 10/04/08 Status: Ordered clonazePAM 1 mg oral tablet 1 tablet, By Mouth, 2 times a day, # 180 tablet, 1 Refills, Maintenance, 02/03/22 15:36:00 EST, [facility], 175.26, cm, 02/03/22 14:57:00 EST, Height Start Date: 02/03/22 Status: Ordered cranberry oral tablet 0 Refills, Maintenance, 09/24/16 10:41:52 Start Date: 09/24/16 Status: Ordered Flonase 50 mcg/inh nasal spray 1 sprays = 50 mcg, Nares, Both, Daily, # 16 Gm, 5 Refills, Maintenance, 01/15/20 14:58:00 EDT, Nasal [place], [id number], 1 sprays Nares, Both Daily, 175.26, cm, 12/04/19 14:32:00 EDT, Height, 121.7, kg, 09/01/19 8:19:00 EDT, Dry Weight Start Date: 01/15/20 Status: Ordered fluconazole 150 mg oral tablet 1 tablet = 150 mg, By Mouth, Once, # 1 tablet, 0 Refills, Soft Stop, 02/26/22 15:22:00 EST, [id number] Partial fill upon patient request if [...] 11/20/20 17:39:00 EDT, Route to Pharmacy Electronically, [facility], Partial fill upon patient [...] 3 Refills, Maintenance, 02/03/22 15:34:00 EST, Suspension, [facility], Partial fill upon patient request if the prescription is for a schedule II opioid drug., 175.26, c... Start Date: 02/03/22 Status: Ordered PARoxetine 20 mg oral tablet 1, tablet, By Mouth, Daily, # 90 tablet, Refills 1, Maintenance, 12/06/21 1:01:00 EDT, Route to Pharmacy Electronically, [facility], 175.26, cm, 03/25/21 [...] 02/26/22 13:19:00 EST, Route to Pharmacy Electronically, [facility]/pharmacy #[id number], Partial fill upon patient request if the [...] 01/12/23 0:00:00 EDT, 01/12/22 17:01:00 EDT, Tablet, [facility]... Start Date: 01/12/22 Stop Date: [...] Personnel Name: Grecia SEGUNDO, Talat March Position: [facility] Primary Care Physician Member Role: PCP Address: Address: [address] [place] [address]- Care Team Related Persons Name: ANNIE HASSAN Address: home [address] [place] [address] Name: LISHA LOVE Address: home [address] [place] [address]
--- OUTSIDE RECORDS SUMMARY | 2023-02-26 11:19 | XMS_ITS | Continuity of Care Document ---
Author Name Unknown Organization 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 [place] [address] [place] [address]- Allergies, Adverse Reactions, Alerts Substance Reaction Severity [...] 13-valent vaccine 4 03/01/17 Given 1Result Comment: [facility]-[id number] 2Result Comment: [03/01/2017] [facility] [id number] 3Result Comment: [08/23/2017] [facility] [id number] 4Result Comment: [03/01/2017] [facility] [id number] Medications acetaminophen/butalbital/caffeine 325 mg-50 mg-40 mg oral capsule 1 capsule, By Mouth, Every 4 hours, PRN for headache, # 180 capsule, 1 Refills, Maintenance, 10/11/19 5:21:00 EDT, Capsule, [facility], 1 capsule By Mouth Every 4 hours,PRN:forheadache, 175.26, cm, 10/05/19 10:27:00 EDT, Height... Start Date: 10/11/19 Status: Ordered BiPAP Equipment BiPAP 02/01, Maintenance, nasal mask Reliable Respiratory, 05/16/18 15:13:22 EST, Compound Start Date: 05/16/18 Status: Ordered Calcium 600 +D By Mouth, 0 Refills Start Date: 09/04/08 Stop Date: 10/04/08 Status: Ordered clonazePAM 1 mg oral tablet 1 tablet, By Mouth, 2 times a day, # 180 tablet, 1 Refills, Maintenance, 10/05/19 12:06:00 EDT, [facility], 175.26, cm, 10/05/19 10:27:00 EDT, Height, 121.7, kg, 09/01/19 8:19:00 EDT, Dry Weight Start Date: 10/05/19 Status: Ordered cranberry oral tablet 0 Refills, Maintenance, 09/24/16 10:41:52 Start Date: 09/24/16 Status: Ordered Dilaudid 2 mg oral tablet 1 tablet = 2 mg, By Mouth, Every 4 hours, PRN for pain, # 18 tablet, 0 Refills, Maintenance, 09/01/19 10:16:00 EDT, Tablet, [facility], Partial fill upon patient request, 175.26, cm,09/01/19 8:19:00 EDT, Height, 121.7, kg, 09/01/19 8... Start Date: 09/01/19 Status: Ordered Flonase 50 mcg/inh nasal spray 1 sprays = 50 mcg, Nares, Both, Daily, # 16 Gm, 5 Refills, Maintenance, 01/15/20 14:58:00 EDT, Nasal [place], [facility]/pharmacy #[id number], 1 sprays Nares, Both Daily, 175.26, [...] capsule, 3 Refills, Maintenance, 10/05/19 12:07:00 EDT, [facility], 175.26, cm, 10/05/19 10:27:00 EDT, Height, 121.7, kg, 09/01/19 8:19:00 EDT,Dry Weight Start Date: 10/05/19 Status: Ordered PARoxetine 20 mg oral tablet 1, tablet, By Mouth, Daily, # 90 tablet, Refills 3, Tot. Refills 3, Maintenance, 06/23/19 11:03:00 EDT, Route to Pharmacy Electronically, [facility], 162.56, cm, 11/08/18 10:49:00 EDT, Height [...] 10/05/19 12:07:00 EDT, Route to Pharmacy Electronically, [facility], 175.26, cm, 10/05/19 10:27:00 [...] Refills, Maintenance, 10/05/19 12:07:00 EDT, CR Capsule, [facility], 175.26, cm, 10/05/19 10:27:00 EDT, Height, 121.7, kg, 09/01/19 8:19:00 EDT, Dry Weight Start Date: 10/05/19 Status: Ordered Zofran 4 mg oral tablet 1 tablet = 4 mg, By Mouth, Every 8 hours, PRN Nausea & Vomiting, # 10 tablet, 0 Refills, Maintenance, 09/01/19 10:18:00 EDT, Tablet, [facility], 175.26, cm, 09/01/19 8:19:00 EDT,Height, 121.7, [...]
--- OUTSIDE RECORDS SUMMARY | 2023-02-26 11:19 | XMS_ITS | Continuity of Care Document ---
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 Name Role Phone Grecia SEGUNDO, Talat March Primary Care Physician [place] [facility] [place] 09/10/19 [facility] [address] [place] [address]- [facility] Attending Physician: AdmVitor garcia Admitting Physician: AdmtrVitor Referring Physician: Admtr, [id number] [...] 13-valent vaccine 4 03/01/17 Given 1Result Comment: [facility]-[id number] 2Result Comment: [03/01/2017] [facility] [id number] 3Result Comment: [08/23/2017] [facility] [id number] 4Result Comment: [03/01/2017] [facility] [id number] Medications acetaminophen/butalbital/caffeine 325 mg-50 mg-40 mg oral capsule 1 capsule, By Mouth, Every 4 hours, PRN for headache, # 90 capsule, 1 Refills, Maintenance, 04/13/20 14:23:00 EDT, Capsule, Pharmacy, 1 capsule By Mouth Every 4 [...] tablet, 1 Refills, Maintenance, 05/09/19 12:56:00 EST, [facility], 162.56, cm, 11/08/18 10:49:00 EDT, Height Start Date: 05/09/19 Status: Ordered cranberry oral tablet 0 Refills, Maintenance, 09/24/16 10:41:52 Start Date: 09/24/16 Status: Ordered Dilaudid 2 mg oral tablet 1 tablet = 2 mg, By Mouth, Every 4 hours, PRN for pain, # 18 tablet, 0 Refills, Maintenance, 09/01/19 10:16:00 EDT, Tablet, [facility], Partial fill upon patient request, 175.26, cm,09/01/19 8:19:00 EDT, Height, 121.7, kg, 09/01/19 8... Start Date: 09/01/19 Status: Ordered Flonase 50 mcg/inh nasal spray 1 sprays = 50 mcg, Nares, Both, Daily, # 16 Gm, 5 Refills, Maintenance, 11/08/18 11:12:34 EDT, Nasal [place], 1 sprays Nares, Both Daily Start Date: 11/08/18 Status: Ordered Hyoscyamine 0 Refills, Maintenance, 09/24/16 10:41:29 Start Date: 09/24/16 Status: Ordered Multivitamin Tablet 1 tablet, By Mouth, Daily, 0 Refills Start Date: 09/04/08 Stop Date: 10/04/08 Status: Ordered omeprazole 20 mg oral enteric coated capsule 1 capsule, By Mouth, Daily, # 90 capsule, 3 Refills, Maintenance, 08/16/19 7:22:00 EDT, Pharmacy, 162.56, cm, 11/08/18 10:49:00 EDT, Height Start Date: 08/16/19 Status: Ordered PARoxetine 20 mg oral tablet 1, tablet, By Mouth, Daily, # 90 tablet, Refills 3, Tot. Refills 3, Maintenance, 06/23/19 11:03:00 EDT, Route to Pharmacy Electronically, Pharmacy, 162.56, cm, 11/08/18 10:49:00 EDT, Height [...] 11/08/18 11:11:57 EDT, Route to Pharmacy Electronically, [id number], Pharmacy Start Date: 11/08/18 Status: Ordered triamcinolone [...] 0 Refills, Maintenance, 09/01/19 10:18:00 EDT, Tablet, [facility], 175.26, cm, 09/01/19 8:19:00 [...]
--- OUTSIDE RECORDS SUMMARY | 2023-02-26 11:19 | XMS_ITS | Continuity of Care Document ---
Author Name Unknown Organization [facility] Address [address] [place] [address]- Care Team Providers Care Perlite Grinder Name Role Phone Grecia SEGUNDO, Talat March Primary Care Physician [phone] [place] [facility] [place] 08/18/[place] [facility] [address] [address]- [facility] Attending Physician: Ivy Marques MD Admitting Physician: Ivy Marques MD Referring Physician: Talat Paige MD Allergies, Adverse Reactions, Alerts Substance Reaction Severity Status ciprofloxacin Active erythromycin [D]Nausea Active cimetidine Active Tagamet [D]Nausea Active Levaquin Active erythromycin base Active Seafood [D]Headache [D]Nausea Active Immunizations Given and Recorded Vaccine Date Status Refusal Reason influenza virus vaccine, inactivated 1 01/19/19 Gi maggie influenza virus vaccine, inactivated 01/03/18 Give n influenza virus vaccine, inactivated 2 03/01/17 Gi maggie tetanus/diphtheria/pertussis, acel(Tdap) 3 08/23/17 Given pneumococcal 13-valent vaccine 4 03/01/17 Given 1Result Comment: [facility]-[id number] 2Result Comment: [03/01/2017] [facility] [id number] 3Result Comment: [08/23/2017] [facility] [id number] 4Result Comment: [03/01/2017] [facility] [id number] Medications acetaminophen/butalbital/caffeine 325 mg-50 mg-40 mg oral capsule 1 capsule, By Mouth, Every 4 hours, PRN for headache, # 90 capsule, 1 Refills, Maintenance, 07/03/19 14:23:00 EDT, Capsule, [facility], 1 capsule By Mouth Every 4 [...] tablet, 1 Refills, Maintenance, 05/09/19 12:56:00 EST, [facility], 162.56, cm, 11/08/18 10:49:00 EDT, Height Start Date: 05/09/19 Status: Ordered cranberry oral tablet 0 Refills, Maintenance, 09/24/16 10:41:52 Start Date: 09/24/16 Status: Ordered Diflucan 150 mg oral tablet 1 tablet = 150 mg, By Mouth, Once, may repeat x 1, # 2 tablet, 0 Refills, Soft Stop, 06/16/19 13:07:00 EDT, [facility]/pharmacy #[id number], 162.56, cm, 11/08/18 10:49:00 EDT, Height Start Date: 06/16/19 Status: Ordered Flonase 50 mcg/inh nasal spray 1 sprays = 50 mcg, Nares, Both, Daily, # 16 Gm, 5 Refills, Maintenance, 11/08/18 11:12:34 EDT, Nasal [place], 1 sprays Nares, Both Daily Start Date: 11/08/18 Status: Ordered Hyoscyamine 0 Refills, Maintenance, 09/24/16 10:41:29 Start Date: 09/24/16 Status: Ordered Multivitamin Tablet 1 tablet, By Mouth, Daily, 0 Refills Start Date: 09/04/08 Stop Date: 10/04/08 Status: Ordered omeprazole 20 mg oral enteric coated capsule 1 capsule, By Mouth, Daily, # 90 capsule, 3 Refills, Maintenance, 08/16/19 7:22:00 EDT, [facility], 162.56, cm, 11/08/18 10:49:00 EDT, Height Start Date: 08/16/19 Status: Ordered PARoxetine 20 mg oral tablet 1, tablet, By Mouth, Daily, # 90 tablet, Refills 3, Tot. Refills 3, Maintenance, 06/23/19 11:03:00 EDT, Route to Pharmacy Electronically, [facility], 162.56, cm, 11/08/18 10:49:00 EDT, Height Start Date: 06/23/19 Status: Ordered Probiotic Formula 1 capsule, By Mouth, Daily, 0 Refills, Maintenance, 09/24/16 10:41:57 Start Date: 09/24/16 Status: Ordered simvastatin 20 mg oral tablet 20 mg, 1, tablet, By Mouth, Daily at bedtime, # 90 tablet, Refills 3, Tot. Refills 3, Maintenance, 11/08/18 11:11:57 EDT, Route to Pharmacy Electronically, [id number], [facility] Start Date: 11/08/18 Status: Ordered triamcinolone [...] CR Capsule Start Date: 11/08/18 Status: Ordered Problem List Condition Effective Dates [...]
--- OUTSIDE RECORDS SUMMARY | 2023-02-26 11:19 | XMS_ITS | Continuity of Care Document ---
Author Name Unknown Organization [facility] Address [address] [facility], [address] Floor, [address] [place] [address]- Care Team Providers Care Transformer Stock Clerk Name Role Phone Grecia SEGUNDO, Talat March Primary Care Physician [place] [facility] [place] 09[place]/22 [facility] [address] [place], [address], [address] [place] [address]- Allergies, Adverse Reactions, Alerts Substance Reaction Severity [...] inactivated 3 03/01/17 Gi maggie SARS-CoV-2 mRNA ([id number]-twdci) vax 09/16/21 Recorded zoster vaccine, inactivated 04/14/21 Recorded zoster vaccine, inactivated 12/09/20 Recorded SARS-CoV-2 (COVID-19) mRNA BNT-162b2 vac 01/08/21 Recorded SARS-CoV-2 (COVID-19) mRNA BNT-162b2 vac 05/22/20 Given SARS-CoV-2 (COVID-19) mRNA BNT-162b2 vac 05/01/20 Given Influenza Virus Vaccine (oldterm) 11/16/19 Recorde d tetanus/diphtheria/pertussis, acel(Tdap) 4 08/23/17 Given pneumococcal 13-valent vaccine 5 03/01/17 Given 1Result Comment: [id number] 2Result Comment: [facility]-[id number] 3Result Comment: [03/01/2017] [facility] [id number] 4Result Comment: [08/23/2017] [facility] [id number] 5Result Comment: [03/01/2017] [facility] [id number] Medications Calcium 600 +D By Mouth, 0 Refills Start Date: 09/04/08 Stop Date: 10/04/08 Status: Ordered clonazePAM 1 mg oral tablet 1 tablet, By Mouth, 2 times a day, # 180 tablet, 1 Refills, Maintenance, 02/03/22 15:36:00 EST, [facility], 175.26, cm, 02/03/22 14:57:00 EST, Height Start Date: 02/03/22 Status: Ordered cranberry oral tablet 0 Refills, Maintenance, 09/24/16 10:41:52 Start Date: 09/24/16 Status: Ordered Flonase 50 mcg/inh nasal spray 1 sprays = 50 mcg, Nares, Both, Daily, # 16 Gm, 5 Refills, Maintenance, 01/15/20 14:58:00 EDT, Nasal [place], [facility]/pharmacy #[id number], 1 sprays Nares, Both Daily, 175.26, cm, 12/04/19 14:32:00 EDT, Height, 121.7, kg, 09/01/19 8:19:00 EDT, Dry Weight Start Date: 01/15/20 Status: Ordered hyoscyamine 0.125 mg oral tablet 0.125 mg, 1, tablet, By Mouth, Daily, PRN, # 45 tablet, Refills 3, Tot. Refills 3, Maintenance, Spasm, 11/20/20 17:39:00 EDT, Route to Pharmacy Electronically, [facility], Partial fill upon patient request [...] Stop Date: 10/04/08 Status: Ordered nystatin topical 729173 u/gm powder 1 application, Topically, 2 times a day, Apply to affected areas twice a day., # 60 Gm, 5 Refills, Acute 05/07/23 14:21:00 EST, 05/07/22 14:21:00 EST, Powder, [facility], 1 application Topically 2 times a day,Instr:Apply to affe... Start Date: 05/07/22 Stop Date: 05/07/23 Status: Ordered omeprazole 40 mg oral enteric coated capsule 1 capsule = 40 mg, By Mouth, 2 times a day, # 180 capsule, 3 Refills, Maintenance, 02/03/22 15:34:00 EST, Suspension, [facility], Partial fill upon patient request if the prescription is for a schedule II opioid drug., 175.26, c... Start Date: 02/03/22 Status: Ordered PARoxetine 20 mg oral tablet 1, tablet, By Mouth, Daily, # 90 tablet, Refills 1, Maintenance, 05/12/22 13:58:00 EST, Route to Pharmacy Electronically, [facility], 175.26, cm, 05/07/22 14:00:00 [...] 06/29/22 11:50:00 EDT, Route to Pharmacy Electronically, [facility], Partial fill upon patient request if the prescr... Start Date: 06/29/22 Status: Ordered rizatriptan 10 mg oral tablet 1 tablet = 10 mg, By Mouth, Daily, PRN Migraine Headache, may repeat dose in 2 hours if needed, do not exceed 2 doses in 24 hours, # 9 tablet, 5 Refills, Acute 08/11/23 0:00:00 EDT, 08/10/22 18:20:00EDT, [facility]/pharmacy #[id number], Partial fill upon patient... Start [...] 0 Refills, Soft Stop, 08/10/22 18:12:00 EDT, [facility]/pharmacy #[id number], Partial fill upon patient request [...] Primary Care Member Role: PCP Address: Address: [address] [place] [address]- Care Team Related Persons Name: ANNEI HASSAN Address: home [address] [place] [address] Name: LISHA LOVE Address: home [address] [place] [address]
--- OUTSIDE RECORDS SUMMARY | 2023-02-26 11:19 | XMS_ITS | Continuity of Care Document ---
Author Name Unknown Organization [facility] Address [address] [facility] [address] [place] [address]- Care Team Providers Care Pulmonary Nurse Practitioner Name Role Phone Grecia SEGUNDO, Talat March Primary Care Physician Encounter 10/27/21 - 11/03/21 [facility] [address], [address] [place] [address]- Attending Physician: Shanda SEGUNDO, Bebeto Bernstein Admitting [...] 13-valent vaccine 4 03/01/17 Given 1Result Comment: [facility]-[id number] 2Result Comment: [03/01/2017] [facility] [id number] 3Result Comment: [08/23/2017] [facility] [id number] 4Result Comment: [03/01/2017] [facility] [id number] Medications acetaminophen/butalbital/caffeine 325 mg-50 mg-40 mg oral capsule 1 capsule, By Mouth, Every 4 hours, PRN NEEDED FOR HEADACHE, # 180 capsule, 3 Refills, Acute 11/20/21 17:41:00 EDT, 11/20/20 17:41:00 EDT, [facility], 30, 1 capsule By MouthEvery 4 hours,PRN: NEEDED FOR HEADA... Start Date: 11/20/20 Stop Date: 11/20/21 Status: Ordered BiPAP Equipment BiPAP 02/01, Maintenance, nasal mask [facility], 05/16/18 15:13:22 EST, Compound Start Date: 05/16/18 Status: Ordered Calcium 600 +D By Mouth, 0 Refills Start Date: 09/04/08 Stop Date: 10/04/08 Status: Ordered clonazePAM 1 mg oral tablet 1 tablet, By Mouth, 2 times a day, # 180 tablet, 1 Refills, Maintenance, 07/01/21 6:15:00 EDT, [facility], 175.26, cm, 03/25/21 7:10:00 EST, Height, 121.7, kg, 09/01/19 8:19:00EDT, Dry Weight Start Date: 07/01/21 Status: Ordered cranberry oral tablet 0 Refills, Maintenance, 09/24/16 10:41:52 Start Date: 09/24/16 Status: Ordered Flonase 50 mcg/inh nasal spray 1 sprays = 50 mcg, Nares, Both, Daily, # 16 Gm, 5 Refills, Maintenance, 01/15/20 14:58:00 EDT, Nasal [place], [facility]/pharmacy #[id number], 1 sprays Nares, Both Daily, 175.26, [...] 11/20/20 17:39:00 EDT, Route to Pharmacy Electronically, [facility], Partial fill upon patient request if the prescription is... Start Date: 11/20/20 Status: Ordered Multivitamin Tablet 1 tablet, By Mouth, Daily, 0 Refills Start Date: 09/04/08 Stop Date: 10/04/08 Status: Ordered omeprazole 20 mg oral enteric coated capsule 1 capsule, By Mouth, Daily, # 90 capsule, 3 Refills, Maintenance, 11/20/20 17:40:00 EDT, [facility], 175.26, cm, 11/20/20 14:07:00 EDT, Height, 121.7, kg, 09/01/19 8:19:00 EDT,Dry Weight Start Date: 11/20/20 Status: Ordered PARoxetine 20 mg oral tablet 1, tablet, By Mouth, Daily, # 90 tablet, Refills 1, Route to Pharmacy Electronically, [facility], 175.26, cm, 03/25/21 7:10:00 EST, Height, 121.7, kg, 09/01/19 8:19:00 EDT, Dry Weight Start Date: 07/02/21 Status: Ordered Probiotic Formula 1 capsule, By Mouth, Daily, 0 Refills, Maintenance, 09/24/16 10:41:57 Start Date: 09/24/16 Status: Ordered rizatriptan 5 mg oral tablet 1 tablet = 5 mg, By Mouth, Daily, PRN Migraine auras, # 12 tablet, 3 Refills, Acute 11/20/21 17:41:00 EDT, 11/20/20 17:40:00 EDT, Tablet, [facility], Partial fill upon patient request if the prescription is for a schedule II opi... Start Date: 11/20/20 Stop Date: 11/20/21 Status: Ordered simvastatin 20 mg oral tablet 1, tablet, By Mouth, Daily at bedtime, # 90 tablet, Refills 3, Route to Pharmacy Electronically, [facility], 175.26, cm, 03/25/21 [...] capsule, 3 Refills, Maintenance, 09/03/20 16:49:00 EDT, [facility], 175.26, cm, 12/04/19 14:32:00 EDT, [...]
--- OUTSIDE RECORDS SUMMARY | 2023-02-26 11:19 | XMS_ITS | Continuity of Care Document ---
Author Name Unknown Organization [facility] Address [address] [place] [address]- Care Team Providers Care Store Promoter Name Role Phone Grecia SEGUNDO, Talat March Primary Care Physician [place] [facility] [place]22 [facility] [address] [place] [address]- Allergies, Adverse Reactions, Alerts Substance Reaction Severity [...] inactivated 2 03/01/17 Gi maggie SARS-CoV-2 mRNA (yhenxyg-cvaz-syhyl) vax 09/16/21 Recorded zoster vaccine, inactivated 04/14/21 Recorded zoster vaccine, inactivated 12/09/20 Recorded SARS-CoV-2 (COVID-19) mRNA BNT-162b2 vac 01/08/21 Recorded SARS-CoV-2 (COVID-19) mRNA BNT-162b2 vac 05/22/20 Given SARS-CoV-2 (COVID-19) mRNA BNT-162b2 vac 05/01/20 Given Influenza Virus Vaccine (oldterm) 11/16/19 Recorde d tetanus/diphtheria/pertussis, acel(Tdap) 3 08/23/17 Given pneumococcal 13-valent vaccine 4 03/01/17 Given 1Result Comment: [facility]-[id number] 2Result Comment: [03/01/2017] [facility] [id number] 3Result Comment: [08/23/2017] [facility] [id number] 4Result Comment: [03/01/2017] [facility] [id number] Medications BiPAP Equipment BiPAP 14/, Maintenance, nasal mask [facility], 05/16/18 15:13:22 EST, Compound Start Date: 05/16/18 Status: Ordered Calcium 600 +D By Mouth, 0 Refills Start Date: 09/04/08 Stop Date: 10/04/08 Status: Ordered clonazePAM 1 mg oral tablet 1 tablet, By Mouth, 2 times a day, # 180 tablet, 1 Refills, Maintenance, 02/03/22 15:36:00 EST, [facility], 175.26, cm, 02/03/22 14:57:00 EST, Height Start Date: 02/03/22 Status: Ordered cranberry oral tablet 0 Refills, Maintenance, 09/24/16 10:41:52 Start Date: 09/24/16 Status: Ordered Flonase 50 mcg/inh nasal spray 1 sprays = 50 mcg, Nares, Both, Daily, # 16 Gm, 5 Refills, Maintenance, 01/15/20 14:58:00 EDT, Nasal [place], [facility]/pharmacy #[id number], 1 sprays Nares, Both [...] 11/20/20 17:39:00 EDT, Route to Pharmacy Electronically, [facility], Partial fill upon patient request if [...] 3 Refills, Maintenance, 02/03/22 15:34:00 EST, Suspension, [facility], Partial fill upon patient request if the prescription is for a schedule II opioid drug., 175.26, c... Start Date: 02/03/22 Status: Ordered PARoxetine 20 mg oral tablet 1, tablet, By Mouth, Daily, # 90 tablet, Refills 1, Maintenance, 12/06/21 1:01:00 EDT, Route to Pharmacy Electronically, [facility], 175.26, cm, 03/25/21 [...] 01/12/23 0:00:00 EDT, 01/12/22 17:01:00 EDT, Tablet, [facility] Care... Start Date: 01/12/22 Stop Date: 01/12/23 Status: Ordered simvastatin 20 mg oral tablet 1, tablet, By Mouth, Daily at bedtime, # 90 tablet, Refills 3, Route to Pharmacy Electronically, [facility], 175.26, cm, 03/25/21 [...] Personnel Name: Grecia SEGUNDO, Talat March Position: [facility] Primary Care Physician Member Role: PCP Address: Address: [address] [place] [address]- Care Team Related Persons Name: ANNIE HASSAN Address: home [address] [place] [address] Name: LISHA LOVE Address: home [address] [place] [address]
--- OUTSIDE RECORDS SUMMARY | 2023-02-26 11:19 | XMS_ITS | Continuity of Care Document ---
Author Name Unknown Organization [facility] Address [address] [place] [address]- Care Team Providers Care Residential Solar Sales Consultant Name Role Phone Grecia SEGUNDO, Talat March Primary Care Physician En[place] [facility] [place] Date(s): 02/26/22 - 03/28/22 [facility] [place] [facility] [address] [place] [address]- Allergies, Adverse Reactions, Alerts Substance Reaction Severity [...] inactivated 2 03/01/17 Gi maggie SARS-CoV-2 mRNA (ofzhvdp-tctf-lmplz) vax 09/16/21 Recorded zoster vaccine, inactivated 04/14/21 Recorded zoster vaccine, inactivated 12/09/20 Recorded SARS-CoV-2 (COVID-19) mRNA BNT-162b2 vac 01/08/21 Recorded SARS-CoV-2 (COVID-19) mRNA BNT-162b2 vac 05/22/20 Given SARS-CoV-2 (COVID-19) mRNA BNT-162b2 vac 05/01/20 Given Influenza Virus Vaccine (oldterm) 11/16/19 Recorde d tetanus/diphtheria/pertussis, acel(Tdap) 3 08/23/17 Given pneumococcal 13-valent vaccine 4 03/01/17 Given 1Result Comment: [facility]-[id number] 2Result Comment: [03/01/2017] [facility] [id number] 3Result Comment: [08/23/2017] [facility] [id number] 4Result Comment: [03/01/2017] [facility] [id number] Medications BiPAP Equipment BiPAP 14/, Maintenance, nasal mask [facility], 05/16/18 15:13:22 EST, Compound Start Date: 05/16/18 Status: Ordered Calcium 600 +D By Mouth, 0 Refills Start Date: 09/04/08 Stop Date: 10/04/08 Status: Ordered clonazePAM 1 mg oral tablet 1 tablet, By Mouth, 2 times a day, # 180 tablet, 1 Refills, Maintenance, 02/03/22 15:36:00 EST, [facility], 175.26, cm, 02/03/22 14:57:00 EST, Height Start Date: 02/03/22 Status: Ordered cranberry oral tablet 0 Refills, Maintenance, 09/24/16 10:41:52 Start Date: 09/24/16 Status: Ordered Flonase 50 mcg/inh nasal spray 1 sprays = 50 mcg, Nares, Both, Daily, # 16 Gm, 5 Refills, Maintenance, 01/15/20 14:58:00 EDT, Nasal [place], [id number] 1 sprays Nares, Both Daily, 175.26, cm, 12/04/19 14:32:00 EDT, Height, 121.7, kg, 09/01/19 8:19:00 EDT, Dry Weight Start Date: 01/15/20 Status: Ordered fluconazole 150 mg oral tablet 1 tablet = 150 mg, By Mouth, Once, # 1 tablet, 0 Refills, Soft Stop, 02/26/22 15:22:00 EST, Tablet[id number] Partial fill upon patient request if [...] 12/06/21 1:01:00 EDT, Route to Pharmacy Electronically, [facility], 175.26, cm, 03/25/21 7:10:00 [...] 02/26/22 13:19:00 EST, Route to Pharmacy Electronically, [facility]/pharmacy #[id number], Partial fill upon patient request if [...] 01/12/23 0:00:00 EDT, 01/12/22 17:01:00 EDT, Tablet, [facility] Carem... Start Date: 01/12/22 Stop Date: 01/12/23 [...] Personnel Name: Grecia SEGUNDO, Talat March Position: [facility] Primary Care Physician Member Role: PCP Address: Address: [address] [place] [address]- Care Team Related Persons Name: ANNIE HASSAN Address: home [address] [place] [address] Name: LISHA LOVE Address: home [address] [place] [address]
--- OUTSIDE RECORDS SUMMARY | 2023-02-26 11:19 | XMS_ITS | Continuity of Care Document ---
Author Name Unknown Organization [facility] Mustapha lt Address [address] [place] [address]- Care Team Providers Care Night Stocker Name Role Phone Talat Paige MD Primary Care Physician [phone] Encounter [facility] Date(s): 04/04/19 - 08/02/19 [facility] [place] Adult [address] [place] [address]- [facility] Attending Physician: Talat Paige MD Allergies, Adverse [...] 03/01/17 Given 1Result Comment: [facility]-[id number] 2Result Comment: [03/01/2017] [facility] [id number] 3Result Comment: [08/23/2017] [facility] [id number] 4Result Comment: [03/01/2017] [facility] [id number] Medications acetaminophen/butalbital/caffeine 325 mg-50 mg-40 mg oral capsule 1 capsule, By Mouth, Every 4 hours, PRN for headache, # 90 capsule, 1 Refills, Maintenance, 07/03/19 14:23:00 EDT, Capsule, [facility], 1 capsule By Mouth Every 4 [...] tablet, 1 Refills, Maintenance, 05/09/19 12:56:00 EST, [facility], 162.56, cm, 11/08/18 10:49:00 EDT, Height Start Date: 05/09/19 Status: Ordered cranberry oral tablet 0 Refills, Maintenance, 09/24/16 10:41:52 Start Date: 09/24/16 Status: Ordered Diflucan 150 mg oral tablet 1 tablet = 150 mg, By Mouth, Once, may repeat x 1, # 2 tablet, 0 Refills, Soft Stop, 06/16/19 13:07:00 EDT, [facility]/pharmacy #[id number], 162.56, cm, 11/08/18 10:49:00 EDT, Height Start Date: 06/16/19 Status: Ordered Flonase 50 mcg/inh nasal spray 1 sprays = 50 mcg, Nares, Both, Daily, # 16 Gm, 5 Refills, Maintenance, 11/08/18 11:12:34 EDT, Nasal [place], 1 sprays Nares, Both Daily Start Date: 11/08/18 Status: Ordered Hyoscyamine 0 Refills, Maintenance, 09/24/16 10:41:29 Start Date: 09/24/16 Status: Ordered Multivitamin Tablet 1 tablet, By Mouth, Daily, 0 Refills Start Date: 09/04/08 Stop Date: 10/04/08 Status: Ordered PARoxetine 20 mg oral tablet 1, tablet, By Mouth, Daily, # 90 tablet, Refills 3, Tot. Refills 3, Maintenance, 06/23/19 11:03:00 EDT, Route to Pharmacy Electronically, [facility], 162.56, cm, 11/08/18 10:49:00 EDT, Height Start Date: 06/23/19 Status: Ordered Probiotic Formula 1 capsule, By Mouth, Daily, 0 Refills, Maintenance, 09/24/16 10:41:57 Start Date: 09/24/16 Status: Ordered simvastatin 20 mg oral tablet 20 mg, 1, tablet, By Mouth, Daily at bedtime, # 90 tablet, Refills 3, Tot. Refills 3, Maintenance, 11/08/18 11:11:57 EDT, Route to Pharmacy Electronically, [id number], [facility] Start Date: 11/08/18 Status: Ordered triamcinolone [...]
--- OUTSIDE RECORDS SUMMARY | 2023-02-26 11:19 | XMS_ITS | Continuity of Care Document ---
Author Name Unknown Organization [facility] Address [address] [facility] [place] [address]- Care Team Providers Care Oil Paint Shader Name Role Phone Grecia SEGUNDO, Talat March Primary Care Physician [phone] Encounter 10/25/19 - 11/01/19 [facility] [address], [address] [place] [address]- [phone] Attending Physician: Shanda SEGUNDO, Bebeto Bernstein Admitting [...] 13-valent vaccine 4 03/01/17 Given 1Result Comment: [facility]-[id number] 2Result Comment: [03/01/2017] [facility] [id number] 3Result Comment: [08/23/2017] [facility] [id number] 4Result Comment: [03/01/2017] [facility] [id number] Medications acetaminophen/butalbital/caffeine 325 mg-50 mg-40 mg oral capsule 1 capsule, By Mouth, Every 4 hours, PRN for headache, # 180 capsule, 1 Refills, Maintenance, 10/11/19 5:21:00 EDT, [facility]apsule, [facility], 1 capsule By Mouth Every 4 [...] tablet, 1 Refills, Maintenance, 10/05/19 12:06:00 EDT, [facility], 175.26, cm, 10/05/19 10:27:00 EDT, Height, 121.7, kg, 09/01/19 8:19:00 EDT, Dry Weight Start Date: 10/05/19 Status: Ordered cranberry oral tablet 0 Refills, Maintenance, 09/24/16 10:41:52 Start Date: 09/24/16 Status: Ordered diazepam 5 mg oral tablet See Instructions, 1 tablet By Mouth 30-60 minutes prior to procedure, # 1 tablet, Refills 0, Tot. Refills 0, Acute 11/05/19 12:11:00 EDT, 10/05/19 12:10:00 EDT, Instructions Replace Required Details,Route to Pharmacy Electronically, [facility]/pharmacy #[id number]... Start Date: 10/05/19 Stop Date: 11/05/19 Status: Ordered Dilaudid 2 mg oral tablet 1 tablet = 2 mg, By Mouth, Every 4 hours, PRN for pain, # 18 tablet, 0 Refills, Maintenance, 09/01/19 10:16:00 EDT, Tablet, [facility], Partial fill upon patient request, 175.26, cm,09/01/19 8:19:00 EDT, Height, 121.7, kg, 09/01/19 8... Start Date: 09/01/19 Status: Ordered Flonase 50 mcg/inh nasal spray 1 sprays = 50 mcg, Nares, Both, Daily, # 16 Gm, 5 Refills, Maintenance, 11/08/18 11:12:34 EDT, Nasal [place], 1 sprays Nares, Both Daily Start Date: 11/08/18 Status: Ordered Hyoscyamine 0 Refills, Maintenance, 09/24/16 10:41:29 Start Date: 09/24/16 Status: Ordered Multivitamin Tablet 1 tablet, By Mouth, Daily, 0 Refills Start Date: 09/04/08 Stop Date: 10/04/08 Status: Ordered omeprazole 20 mg oral enteric coated capsule 1 capsule, By Mouth, Daily, # 90 capsule, 3 Refills, Maintenance, 10/05/19 12:07:00 EDT, [facility], 175.26, cm, 10/05/19 10:27:00 EDT, Height, 121.7, kg, 09/01/19 8:19:00 EDT,Dry Weight Start Date: 10/05/19 Status: Ordered PARoxetine 20 mg oral tablet 1, tablet, By Mouth, Daily, # 90 tablet, Refills 3, Tot. Refills 3, Maintenance, 06/23/19 11:03:00 EDT, Route to Pharmacy Electronically, [facility], 162.56, cm, 11/08/18 10:49:00 EDT, [...] 12:07:00 EDT, Route to Pharmacy Electronically, [facility], 175.26, cm, 10/05/19 10:27:00 EDT, Height, [...] Maintenance, 10/05/19 12:07:00 EDT, CR Capsule, [facility], 175.26, cm, 10/05/19 10:27:00 EDT, Height, 121.7, kg, 09/01/19 8:19:00 EDT, Dry Weight Start Date: 10/05/19 Status: Ordered Zofran 4 mg oral tablet 1 tablet = 4 mg, By Mouth, Every 8 hours, PRN Nausea & Vomiting, # 10 tablet, 0 Refills, Maintenance, 09/01/19 10:18:00 EDT, Tablet, [facility], 175.26, cm, 09/01/19 8:19:00 EDT,Height, 121.7, [...]
--- OUTSIDE RECORDS SUMMARY | 2023-02-26 11:19 | XMS_ITS | Continuity of Care Document ---
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 Name Role Phone Talat Paige MD Primary Care Physician Encounter [facility] Date(s): 11/20/20 - 11/27/20 [facility] [address] [place] [address]- Attending Physician: Talat Paige MD Allergies, Adverse [...] 13-valent vaccine 4 03/01/17 Given 1Result Comment: [facility]-[id number] 2Result Comment: [03/01/2017] [facility] [id number] 3Result Comment: [08/23/2017] [facility] [id number] 4Result Comment: [03/01/2017] [facility] [id number] Medications acetaminophen/butalbital/caffeine 325 mg-50 mg-40 mg oral capsule 1 capsule, By Mouth, Every 4 hours, PRN NEEDED FOR HEADACHE, # 180 capsule, 3 Refills, Acute 11/20/21 17:41:00 EDT, 11/20/20 17:41:00 EDT, [facility], 30, 1 capsule By MouthEvery 4 [...] tablet, 1 Refills, Maintenance, 11/20/20 17:38:00 EDT, [facility], 175.26, cm, 11/20/20 14:07:00 EDT, Height, 121.7, kg, 09/01/19 8:19:00 EDT, Dry Weight Start Date: 11/20/20 Status: Ordered cranberry oral tablet 0 Refills, Maintenance, 09/24/16 10:41:52 Start Date: 09/24/16 Status: Ordered Flonase 50 mcg/inh nasal spray 1 sprays = 50 mcg, Nares, Both, Daily, # 16 Gm, 5 Refills, Maintenance, 01/15/20 14:58:00 EDT, Nasal [place], [facility]/pharmacy #[id number], 1 sprays Nares, [...] 11/20/20 17:39:00 EDT, Route to Pharmacy Electronically, [facility], Partial fill upon patient request if the prescription is... Start Date: 11/20/20 Status: Ordered Multivitamin Tablet 1 tablet, By Mouth, Daily, 0 Refills Start Date: 09/04/08 Stop Date: 10/04/08 Status: Ordered omeprazole 20 mg oral enteric coated capsule 1 capsule, By Mouth, Daily, # 90 capsule, 3 Refills, Maintenance, 11/20/20 17:40:00 EDT, [facility], 175.26, cm, 11/20/20 14:07:00 EDT, Height, 121.7, kg, 09/01/19 8:19:00 EDT,Dry Weight Start Date: 11/20/20 Status: Ordered PARoxetine 20 mg oral tablet 1, tablet, By Mouth, Daily, # 90 tablet, Refills 3, Tot. Refills 3, Maintenance, 04/10/20 11:24:00 EST, Route to Pharmacy Electronically, [facility], 175.26, cm, 12/04/19 14:32:00 EDT, Height, 121.7, kg, 09/01/19 8:19:00 EDT, Start Date: 04/10/20 Status: Ordered Probiotic Formula 1 capsule, By Mouth, Daily, 0 Refills, Maintenance, 09/24/16 10:41:57 Start Date: 09/24/16 Status: Ordered rizatriptan 5 mg oral tablet 1 tablet = 5 mg, By Mouth, Daily, PRN Migraine auras, # 12 tablet, 3 Refills, Acute 11/20/21 17:41:00 EDT, 11/20/20 17:40:00 EDT, Tablet, [facility], Partial fill upon patient request if the prescription is for a schedule II opi... Start Date: 11/20/20 Stop Date: 11/20/21 Status: Ordered simvastatin 20 mg oral tablet 1, tablet, By Mouth, Daily at bedtime, # 90 tablet, Refills 3, Tot. Refills 0, Maintenance, 09/03/20 16:49:00 EDT, Route to Pharmacy Electronically, [facility], 175.26, cm, 12/04/19 14:32:00 [...] symptom or sign(Confirmed) Active Venous stasis(Confirmed) Active Vital Signs Most recent to oldest [Reference Range]: 1 Height 175.26 cm (11/20/20 2:07 PM) Weight 118.9 kg (11/20/20 2:07 PM) Oxygen Saturation [94-100 %] 96 % (11/20/20 2:07 PM) Pulse Rate [55-90 bpm] 77 bpm (11/20/20 2:07 PM) Body Mass Index [18.5-24.99] 38.71 *>HHI* (11/20/20 2:07 PM) Blood Pressure [90-138/55-84 mm Hg] 130/ 80mm Hg (11/20/20 2:07 PM) Temperature [96.8-100.4 DegF] 98.9 DegF (11/20/20 2:07 PM) Blood pressure sites Arm, right (11/20/20 2:07 PM) Temperature Route Oral (11/20/20 2:07 PM) Weight Obtained Via Standing scale (11/20/20 2:07 PM) Social History Social History Type Response Smoking Status Never smoker entered on: 09/24/16 Sex
--- OUTSIDE RECORDS SUMMARY | 2023-02-26 11:19 | XMS_ITS | Continuity of Care Document ---
Author Name Unknown Organization [facility] Address [address] [place] [address]- Care Team Providers Care Firer Retort Name Role Phone Grecia SEGUNDO, Talat March Primary Care Physician [facility] Date(s): 12/08/19 - 01/07/20 [facility] Adult [address] [place] [address]- [facility] Allergies, Adverse Reactions, Alerts Substance Reaction Severity [...] 13-valent vaccine 4 03/01/17 Given 1Result Comment: [facility]-[id number] 2Result Comment: [03/01/2017] [facility] [id number] 3Result Comment: [08/23/2017] [facility] [id number] 4Result Comment: [03/01/2017] [facility] [id number] Medications acetaminophen/butalbital/caffeine 325 mg-50 mg-40 mg oral capsule 1 capsule, By Mouth, Every 4 hours, PRN for headache, # 180 capsule, 1 Refills, Maintenance, 10/11/19 5:21:00 EDT, Capsule, [facility], 1 capsule By Mouth Every 4 [...] tablet, 1 Refills, Maintenance, 10/05/19 12:06:00 EDT, [facility], 175.26, cm, 10/05/19 10:27:00 EDT, Height, 121.7, kg, 09/01/19 8:19:00 EDT, Dry Weight Start Date: 10/05/19 Status: Ordered cranberry oral tablet 0 Refills, Maintenance, 09/24/16 10:41:52 Start Date: 09/24/16 Status: Ordered Dilaudid 2 mg oral tablet 1 tablet = 2 mg, By Mouth, Every 4 hours, PRN for pain, # 18 tablet, 0 Refills, Maintenance, 09/01/19 10:16:00 EDT, Tablet, [facility], Partial fill upon patient request, 175.26, cm,09/01/19 8:19:00 EDT, Height, 121.7, kg, 09/01/19 8... Start Date: 09/01/19 Status: Ordered Flonase 50 mcg/inh nasal spray 1 sprays = 50 mcg, Nares, Both, Daily, # 16 Gm, 5 Refills, Maintenance, 11/08/18 11:12:34 EDT, Nasal [place], 1 sprays Nares, Both Daily Start Date: 11/08/18 Status: Ordered Hyoscyamine 0 Refills, Maintenance, 09/24/16 10:41:29 Start Date: 09/24/16 Status: Ordered Multivitamin Tablet 1 tablet, By Mouth, Daily, 0 Refills Start Date: 09/04/08 Stop Date: 10/04/08 Status: Ordered nystatin topical 178332 u/gm powder 1 application, Topically, 2 times a day, Apply to affected areas twice a day., # 60 Gm, 3 Refills, Acute 02/07/20 0:00:00 EST, 01/03/20 11:48:00 EDT, Powder, [facility]/pharmacy #[id number], 1 application Topically 2 times a day,Instr:Apply to affected areas twice... Start Date: 01/03/20 Stop Date: 02/07/20 Status: Ordered omeprazole 20 mg oral enteric coated capsule 1 capsule, By Mouth, Daily, # 90 capsule, 3 Refills, Maintenance, 10/05/19 12:07:00 EDT, [facility], 175.26, cm, 10/05/19 10:27:00 EDT, Height, 121.7, kg, 09/01/19 8:19:00 EDT,Dry Weight Start Date: 10/05/19 Status: Ordered PARoxetine 20 mg oral tablet 1, tablet, By Mouth, Daily, # 90 tablet, Refills 3, Tot. Refills 3, Maintenance, 06/23/19 11:03:00 EDT, Route to Pharmacy Electronically, [facility], 162.56, cm, 11/08/18 10:49:00 [...] 12:07:00 EDT, Route to Pharmacy Electronically, [facility], 175.26, cm, 10/05/19 10:27:00 [...] Maintenance, 10/05/19 12:07:00 EDT, CR Capsule, [facility], 175.26, cm, 10/05/19 10:27:00 EDT, Height, 121.7, kg, 09/01/19 8:19:00 EDT, Dry Weight Start Date: 10/05/19 Status: Ordered Zofran 4 mg oral tablet 1 tablet = 4 mg, By Mouth, Every 8 hours, PRN Nausea & Vomiting, # 10 tablet, 0 Refills, Maintenance, 09/01/19 10:18:00 EDT, Tablet, [facility], 175.26, cm, 09/01/19 8:19:00 EDT,Height, 121.7, kg, [...]
--- OUTSIDE RECORDS SUMMARY | 2023-02-26 11:19 | XMS_ITS | Continuity of Care Document ---
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 Name Role Phone Talat Paige MD [id number] 02/10/22 [facility] Adult [address] [place] [address]- Attending Physician: Talat Paige MD Allergies, Adverse [...] inactivated 2 03/01/17 Gi maggie SARS-CoV-2 mRNA ([id number]) vax 09/16/21 Recorded zoster vaccine, inactivated 04/14/21 Recorded zoster vaccine, inactivated 12/09/20 Recorded SARS-CoV-2 (COVID-19) mRNA BNT-162b2 vac 01/08/21 Recorded SARS-CoV-2 (COVID-19) mRNA BNT-162b2 vac 05/22/20 Given SARS-CoV-2 (COVID-19) mRNA BNT-162b2 vac 05/01/20 Given Influenza Virus Vaccine (oldterm) 11/16/19 Recorde d tetanus/diphtheria/pertussis, acel(Tdap) 3 08/23/17 Given pneumococcal 13-valent vaccine 4 03/01/17 Given 1Result Comment: [facility]-[id number] 2Result Comment: [03/01/2017] [facility] [id number] 3Result Comment: [08/23/2017] [facility] [id number] 4Result Comment: [03/01/2017] [facility] [id number] Medications BiPAP Equipment BiPAP 02/01, Maintenance, nasal [...] 5 Refills, Maintenance, 01/15/20 14:58:00 EDT, Nasal [place], [facility]/pharmacy #[id number], 1 sprays Nares, Both Daily, 175.26, [...] 11/20/20 17:39:00 EDT, Route to Pharmacy Electronically, [facility], Partial fill upon patient [...] 3 Refills, Maintenance, 02/03/22 15:34:00 EST, Suspension, [facility], Partial fill upon patient request if the prescription is for a schedule II opioid drug., 175.26, c... Start Date: 02/03/22 Status: Ordered PARoxetine 20 mg oral tablet 1, tablet, By Mouth, Daily, # 90 tablet, Refills 1, Maintenance, 12/06/21 1:01:00 EDT, Route to Pharmacy Electronically, [facility], 175.26, cm, 03/25/21 [...] 01/12/23 0:00:00 EDT, 01/12/22 17:01:00 EDT, Tablet, [facility]... Start Date: 01/12/22 Stop Date: 01/12/23 Status: Ordered simvastatin 20 mg oral tablet 1, tablet, By Mouth, Daily at bedtime, # 90 tablet, Refills 3, Route to Pharmacy Electronically, [facility], 175.26, cm, 03/25/21 [...] sign Confirmed Active Venous stasis Confirmed Active Vital Signs Most recent to oldest [Reference Range]: 1 Height 175.26 cm (02/03/22 2:57 PM) Weight 122.9 kg (02/03/22 2:57 PM) Oxygen Saturation [94-100 %] 95 % (02/03/22 2:57 PM) Pulse Rate [55-90 bpm] 77 bpm (02/03/22 2:57 PM) Body Mass Index [18.5-24.99 kg/m2] 40.01 kg/m2 *>HHI* (02/03/22 2:57 PM) Blood Pressure [90-138/55-84 mm Hg] 136/ 79mm Hg (02/03/22 2:57 PM) Temperature [96.8-100.4 DegF] 97.8 DegF (02/03/22 2:57 PM) Mode of Delivery (Oxygen) Room air (02/03/22 2:57 PM) Blood pressure sites Arm, right (02/03/22 2:57 PM) Temperature Route Oral (02/03/22 2:57 PM) Weight Obtained Via Standing scale (02/03/22 2:57 PM) Social History Social History Type Response Smoking Status Never smoker entered on: 09/24/16 Sex Patient Care team information Care Team Personnel Name: Grecia SEGUNDO, Talat March Position: [facility] Primary Care Physician Member Role: PCP Address: Address: [address] [place] [address]- Care Team Related Persons Name: ANNIE HASSAN Address: home [address] [place] [address] Name: LISHA LOVE Address: home [address] [place] [address]
--- OUTSIDE RECORDS SUMMARY | 2023-02-26 11:19 | XMS_ITS | Continuity of Care Document ---
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 Name Role Phone Grecia SEGUNDO, Talat March Primary Care Physician En[place] [facility] Date(s): 04/29/21 - 05/29/21 [facility] [address] [place] [address]- Allergies, Adverse Reactions, Alerts Substance Reaction Severity [...] 13-valent vaccine 4 03/01/17 Given 1Result Comment: [facility]-[id number] 2Result Comment: [03/01/2017] [facility] [id number] 3Result Comment: [08/23/2017] [facility] [id number] 4Result Comment: [03/01/2017] [facility] [id number] Medications acetaminophen/butalbital/caffeine 325 mg-50 mg-40 mg oral [...] tablet, 1 Refills, Maintenance, 11/20/20 17:38:00 EDT, [email or web address], 175.26, cm, 11/20/20 14:07:00 EDT, Height, 121.7, kg, 09/01/19 8:19:00 EDT, Dry Weight Start Date: 11/20/20 Status: Ordered cranberry oral tablet 0 Refills, Maintenance, 09/24/16 10:41:52 Start Date: 09/24/16 Status: Ordered Flonase 50 mcg/inh nasal spray 1 sprays = 50 mcg, Nares, Both, Daily, # 16 Gm, 5 Refills, Maintenance, 01/15/20 14:58:00 EDT, Nasal [place], [facility]/pharmacy #[id number], 1 sprays Nares, Both Daily, 175.26, [...] tablet, Refills 1, Route to Pharmacy Electronically, [facility], 175.26, cm, 11/20/20 14:07:00 EDT, Height, 121.7, [...] 09/03/20 16:49:00 EDT, Route to Pharmacy Electronically, [facility], 175.26, cm, 12/04/19 14:32:00 EDT, [...] capsule, 3 Refills, Maintenance, 09/03/20 16:49:00 EDT, [facility], 175.26, cm, 12/04/19 14:32:00 EDT, [...]
--- OUTSIDE RECORDS SUMMARY | 2023-02-26 11:20 | XMS_ITS | Continuity of Care Document ---
Author Name Unknown Organization 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-[id number] 2Result Comment: [03/01/2017] [facility] [id number] 3Result Comment: [08/23/2017] [facility] [id number] 4Result Comment: [03/01/2017] [facility] [id number] Medications acetaminophen/butalbital/caffeine 325 mg-50 mg-40 mg oral capsule 1 capsule, By Mouth, Every 4 hours, PRN for headache, # 180 capsule, 1 Refills, Maintenance, 10/11/19 5:21:00 EDT, [facility], 1 capsule By Mouth Every 4 [...] tablet, 1 Refills, Maintenance, 10/05/19 12:06:00 EDT, [facility], 175.26, cm, 10/05/19 10:27:00 EDT, Height, 121.7, kg, 09/01/19 8:19:00 EDT, Dry Weight Start Date: 10/05/19 Status: Ordered cranberry oral tablet 0 Refills, Maintenance, 09/24/16 10:41:52 Start Date: 09/24/16 Status: Ordered Dilaudid 2 mg oral tablet 1 tablet = 2 mg, By Mouth, Every 4 hours, PRN for pain, # 18 tablet, 0 Refills, Maintenance, 09/01/19 10:16:00 EDT, Tablet, [facility], Partial fill upon patient request, 175.26, cm,09/01/19 8:19:00 EDT, Height, 121.7, kg, 09/01/19 8... Start Date: 09/01/19 Status: Ordered Flonase 50 mcg/inh nasal spray 1 sprays = 50 mcg, Nares, Both, Daily, # 16 Gm, 5 Refills, Maintenance, 01/15/20 14:58:00 EDT, Nasal [place], [facility]/pharmacy #[id number], 1 sprays Nares, Both Daily, 175.26, [...] capsule, 3 Refills, Maintenance, 10/05/19 12:07:00 EDT, [facility], 175.26, cm, 10/05/19 10:27:00 EDT, Height, 121.7, kg, 09/01/19 8:19:00 EDT,Dry Weight Start Date: 10/05/19 Status: Ordered PARoxetine 20 mg oral tablet 1, tablet, By Mouth, Daily, # 90 tablet, Refills 3, Tot. Refills 3, Maintenance, 06/23/19 11:03:00 EDT, Route to Pharmacy Electronically, [facility], 162.56, cm, 11/08/18 10:49:00 EDT, [...] 10/05/19 12:07:00 EDT, Route to Pharmacy Electronically, [facility], 175.26, cm, 10/05/19 10:27:00 EDT, [...] Refills, Maintenance, 10/05/19 12:07:00 EDT, CR Capsule, [facility], 175.26, cm, 10/05/19 10:27:00 EDT, Height, 121.7, kg, 09/01/19 8:19:00 EDT, Dry Weight Start Date: 10/05/19 Status: Ordered Zofran 4 mg oral tablet 1 tablet = 4 mg, By Mouth, Every 8 hours, PRN Nausea & Vomiting, # 10 tablet, 0 Refills, Maintenance, 09/01/19 10:18:00 EDT, Tablet, [facility], 175.26, cm, 09/01/19 8:19:00 EDT,Height, 121.7, [...]
--- OUTSIDE RECORDS SUMMARY | 2023-02-26 11:20 | XMS_ITS | Continuity of Care Document ---
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 Role Phone Grecia SEGUNDO, Talat March Primary Care Physician [place] [facility] [place]/10[place]20 - 05/10/20 [facility] Adult [address] [place] [address]- Attending Physician: AdmVitor garcia Admitting Physician: AdmtrVitor Referring Physician: Admtr, Ar8 Allergies, Adverse Reactions, Alerts Substance Reaction Severity Status ciprofloxacin weakness Active erythromycin [D]Nausea Active cimetidine WEAKNESS Active Tagamet [D]Nausea Active Levaquin spasms Active Seafood [D]Headache [D]Nausea Active Immunizations Given and Recorded Vaccine Date Status Refusal Reason SARS-CoV-2 (COVID-19) mRNA BNT-162b2 vac 05/01/20 Given Influenza Virus Vaccine (oldterm) 11/16/19 Recorde d influenza virus vaccine, inactivated 1 01/19/19 Gi maggie influenza virus vaccine, inactivated 01/03/18 Give n influenza virus vaccine, inactivated 2 03/01/17 Gi maggie tetanus/diphtheria/pertussis, acel(Tdap) 3 08/23/17 Given pneumococcal 13-valent vaccine 4 03/01/17 Given 1Result Comment: [facility]-[id number] 2Result Comment: [03/01/2017] [facility] [id number] 3Result Comment: [08/23/2017] [facility] [id number] 4Result Comment: [03/01/2017] [facility] [id number] Medications acetaminophen/butalbital/caffeine 325 mg-50 mg-40 mg oral capsule 1 capsule, By Mouth, Every 4 hours, PRN for headache, # 180 capsule, 1 Refills, Maintenance, 10/11/19 5:21:00 EDT, Capsule, [facility], 1 capsule By Mouth Every [...] tablet, 1 Refills, Maintenance, 04/10/20 11:24:00 EST, [facility], 175.26, cm, 12/04/19 14:32:00 EDT, Height, 121.7, kg, 09/01/19 8:19:00 EDT, Dry Weight Start Date: 04/10/20 Status: Ordered cranberry oral tablet 0 Refills, Maintenance, 09/24/16 10:41:52 Start Date: 09/24/16 Status: Ordered Dilaudid 2 mg oral tablet 1 tablet = 2 mg, By Mouth, Every 4 hours, PRN for pain, # 18 tablet, 0 Refills, Maintenance, 09/01/19 10:16:00 EDT, Tablet, [facility], Partial fill upon patient request, 175.26, cm,09/01/19 8:19:00 EDT, Height, 121.7, kg, 09/01/19 8... Start Date: 09/01/19 Status: Ordered Flonase 50 mcg/inh nasal spray 1 sprays = 50 mcg, Nares, Both, Daily, # 16 Gm, 5 Refills, Maintenance, 01/15/20 14:58:00 EDT, Nasal [place], [facility]/pharmacy #[id number], 1 sprays Nares, Both Daily, 175.26, cm, 12/04/19 14:32:00 EDT, Height, 121.7, kg, 09/01/19 8:19:00 EDT, Dry Weight Start Date: 01/15/20 Status: Ordered Hyoscyamine 0 Refills, Maintenance, 09/24/16 10:41:29 Start Date: 09/24/16 Status: Ordered ketoconazole 2% topical shampoo 1 application, Topically, Every Wednesday, Wednesday and Wednesday, Three times weekly, # 120 mL, 5 Refills, Soft Stop, 04/10/20 11:31:00 EST, Shampoo, [facility]/pharmacy #[id number], Partial fill upon patient requestif the prescription is for a schedule II opioid eastonBailee. Start Date: 04/10/20 Status: Ordered Multivitamin Tablet 1 tablet, By Mouth, Daily, 0 Refills Start Date: 09/04/08 Stop Date: 10/04/08 Status: Ordered omeprazole 20 mg oral enteric coated capsule 1 capsule, By Mouth, Daily, # 90 capsule, 3 Refills, Maintenance, 10/05/19 12:07:00 EDT, [facility], 175.26, cm, 10/05/19 10:27:00 EDT, Height, 121.7, kg, 09/01/19 8:19:00 EDT,Dry Weight Start Date: 10/05/19 Status: Ordered PARoxetine 20 mg oral tablet 1, tablet, By Mouth, Daily, # 90 tablet, Refills 3, Tot. Refills 3, Maintenance, 04/10/20 11:24:00 EST, Route to Pharmacy Electronically, [facility], 175.26, cm, 12/04/19 14:32:00 EDT, Height, [...] 10/05/19 12:07:00 EDT, Route to Pharmacy Electronically, [facility], 175.26, cm, 10/05/19 [...] Refills, Maintenance, 10/05/19 12:07:00 EDT, CR Capsule, [facility], 175.26, cm, 10/05/19 10:27:00 EDT, Height, 121.7, kg, 09/01/19 8:19:00 EDT, Dry Weight Start Date: 10/05/19 Status: Ordered Zofran 4 mg oral tablet 1 tablet = 4 mg, By Mouth, Every 8 hours, PRN Nausea & Vomiting, # 10 tablet, 0 Refills, Maintenance, 09/01/19 10:18:00 EDT, Tablet, [facility], 175.26, cm, 09/01/19 8:19:00 [...]
--- OUTSIDE RECORDS SUMMARY | 2023-02-26 11:20 | XMS_ITS | Continuity of Care Document ---
Author Name Unknown Organization [facility] [place] Address [address] [place] [address]- Care Team Providers Care Chief Nurse Name Role Phone Grecia SEGUNDO, Talat March Primary Care Physician [facility] Date[facility]s): 11/24/19 - 12/24/19 [facility] Adult [address] [place] [address]- [facility] Allergies, Adverse Reactions, Alerts Substance Reaction Severity [...] Given 1Result Comment: [facility]-[id number] 2Result Comment: [03/01/2017] [facility] 67253-819-08 3Result Comment: [08/23/2017] [facility] 11228-851-79 4Result Comment: [03/01/2017] [facility] [id number] Medications acetaminophen/butalbital/caffeine 325 mg-50 mg-40 mg oral capsule 1 capsule, By Mouth, Every 4 hours, PRN for headache, # 180 capsule, 1 Refills, Maintenance, 10/11/19 5:21:00 EDT, Capsule, [facility], 1 capsule By Mouth Every [...] tablet, 1 Refills, Maintenance, 10/05/19 12:06:00 EDT, [facility], 175.26, cm, 10/05/19 10:27:00 EDT, Height, 121.7, kg, 09/01/19 8:19:00 EDT, Dry Weight Start Date: 10/05/19 Status: Ordered cranberry oral tablet 0 Refills, Maintenance, 09/24/16 10:41:52 Start Date: 09/24/16 Status: Ordered Dilaudid 2 mg oral tablet 1 tablet = 2 mg, By Mouth, Every 4 hours, PRN for pain, # 18 tablet, 0 Refills, Maintenance, 09/01/19 10:16:00 EDT, Tablet, [facility], Partial fill upon patient request, 175.26, cm,09/01/19 8:19:00 EDT, Height, 121.7, kg, 09/01/19 8... Start Date: 09/01/19 Status: Ordered Flonase 50 mcg/inh nasal spray 1 sprays = 50 mcg, Nares, Both, Daily, # 16 Gm, 5 Refills, Maintenance, 11/08/18 11:12:34 EDT, Nasal [place], 1 sprays Nares, Both Daily Start Date: 11/08/18 Status: Ordered Hyoscyamine 0 Refills, Maintenance, 09/24/16 10:41:29 Start Date: 09/24/16 Status: Ordered Multivitamin Tablet 1 tablet, By Mouth, Daily, 0 Refills Start Date: 09/04/08 Stop Date: 10/04/08 Status: Ordered omeprazole 20 mg oral enteric coated capsule 1 capsule, By Mouth, Daily, # 90 capsule, 3 Refills, Maintenance, 10/05/19 12:07:00 EDT, [facility], 175.26, cm, 10/05/19 10:27:00 EDT, Height, 121.7, kg, 09/01/19 8:19:00 EDT,Dry Weight Start Date: 10/05/19 Status: Ordered PARoxetine 20 mg oral tablet 1, tablet, By Mouth, Daily, # 90 tablet, Refills 3, Tot. Refills 3, Maintenance, 06/23/19 11:03:00 EDT, Route to Pharmacy Electronically, [facility], 162.56, cm, 11/08/18 10:49:00 EDT, [...] to Pharmacy Electronically, [facility], 175.26, cm, 10/05/19 10:27:00 EDT, [...] EDT, CR Capsule, [facility], 175.26, cm, 10/05/19 10:27:00 EDT, Height, 121.7, kg, 09/01/19 8:19:00 EDT, Dry Weight Start Date: 10/05/19 Status: Ordered Zofran 4 mg oral tablet 1 tablet = 4 mg, By Mouth, Every 8 hours, PRN Nausea & Vomiting, # 10 tablet, 0 Refills, Maintenance, 09/01/19 10:18:00 EDT, Tablet, [facility], 175.26, cm, 09/01/19 8:19:00 EDT,Height, 121.7, kg, [...]
--- OUTSIDE RECORDS SUMMARY | 2023-02-26 11:20 | XMS_ITS | Continuity of Care Document ---
Author Name Unknown Organization [facility] Must[place] lt Address [address] [place] [address]- Care Team Providers Care Drying Machine Tender Name Role Phone Grecia SEGUNDO, Talat March Primary Care Physician [facility] Date(s): 11/30/19 - 12/07/19 [facility] Adult [address] [place] [address]- [facility] Attending Physician: Talat Paige MD Allergies, Adverse [...] 03/01/17 Given 1Result Comment: [facility]-[id number] 2Result Comment: [03/01/2017] [facility] [id number] 3Result Comment: [08/23/2017] [facility] 34388-414-93 4Result Comment: [03/01/2017] [facility] [id number] Medications acetaminophen/butalbital/caffeine 325 mg-50 mg-40 mg oral capsule 1 capsule, By Mouth, Every 4 hours, PRN for headache, # 180 capsule, 1 Refills, Maintenance, 10/11/19 5:21:00 EDT, [facility]apsule[facility], 1 capsule By Mouth Every [...] tablet, 1 Refills, Maintenance, 10/05/19 12:06:00 EDT, [facility], 175.26, cm, 10/05/19 10:27:00 EDT, Height, [...] [facility], Partial fill upon patient request, 175.26, cm,09/01/19 8:19:00 EDT, Height, 121.7, kg, 09/01/19 8... Start Date: 09/01/19 Status: Ordered Flonase 50 mcg/inh nasal spray 1 sprays = 50 mcg, Nares, Both, Daily, # 16 Gm, 5 Refills, Maintenance, 11/08/18 11:12:34 EDT, Nasal [place], 1 sprays Nares, Both Daily Start Date: 11/08/18 Status: Ordered Hyoscyamine 0 Refills, Maintenance, 09/24/16 10:41:29 Start Date: 09/24/16 Status: Ordered Multivitamin Tablet 1 tablet, By Mouth, Daily, 0 Refills Start Date: 09/04/08 Stop Date: 10/04/08 Status: Ordered omeprazole 20 mg oral enteric coated capsule 1 capsule, By Mouth, Daily, # 90 capsule, 3 Refills, Maintenance, 10/05/19 12:07:00 EDT, [facility], 175.26, cm, 10/05/19 10:27:00 EDT, Height, 121.7, kg, 09/01/19 8:19:00 EDT,Dry Weight Start Date: 10/05/19 Status: Ordered PARoxetine 20 mg oral tablet 1, tablet, By Mouth, Daily, # 90 tablet, Refills 3, Tot. Refills 3, Maintenance, 06/23/19 11:03:00 EDT, Route to Pharmacy Electronically, [facility], 162.56, cm, 11/08/18 10:49:00 EDT, [...] 10/05/19 12:07:00 EDT, Route to Pharmacy Electronically, [facility], 175.26, cm, 10/05/19 10:27:00 EDT, Height, [...] Refills, Maintenance, 10/05/19 12:07:00 EDT, CR Capsule, [facility], 175.26, cm, 10/05/19 10:27:00 EDT, Height, 121.7, kg, 09/01/19 8:19:00 EDT, Dry Weight Start Date: 10/05/19 Status: Ordered Zofran 4 mg oral tablet 1 tablet = 4 mg, By Mouth, Every 8 hours, PRN Nausea & Vomiting, # 10 tablet, 0 Refills, Maintenance, 09/01/19 10:18:00 EDT, Tablet, [facility], 175.26, cm, 09/01/19 8:19:00 EDT,Height, 121.7, kg, [...] oldest [Reference Range]: 1 Height 175.26 cm (11/30/19 11: AM) Weight 124.2 kg (11/30/19 AM) Oxygen Saturation [94-100 %] 96 % (11/30/19: AM) Pulse Rate [55-90 bpm] 98 bpm *H* (11/30/19 AM) Body Mass Index [18.5-24.99] 40.43 *>HHI* (11/30/19: AM) Blood Pressure [90-138/55-84 mm Hg] 130/ 80mm Hg (11/30/19: AM) Temperature [96.8-100.4 DegF] 98.8 DegF (11/30/19 AM) Mode of Delivery (Oxygen) Room air (9/10/20 11:01 AM) Blood pressure sites Arm, right (11/30/19 11:01 AM) Temperature Route Oral (11/30/19 11:01 AM) Weight Obtained Via Standing scale (11/30/19 11:01 AM) Social History Social History Type Response Smoking Status Never smoker entered on: 09/24/16 Sex
--- OUTSIDE RECORDS SUMMARY | 2023-02-26 11:20 | XMS_ITS | Continuity of Care Document ---
Author Name Unknown Organization [facility] Must[place] lt Address [address] [place] [address]- Care Team Providers Care Automotive Worker Name Role Phone Grecia SEGUNDO, Talat March Primary Care Physician Encounter [facility] Date(s): 03/25/21 - 04/24/21 [facility] Adult [address] [place] [address]- Attending Physician: AdmVitor garcia Admitting Physician: AdmtrVitor [...] Given 1Result Comment: [facility]-[id number] 2Result Comment: [03/01/2017] [facility] 02215-207-16 3Result Comment: [08/23/2017] [facility] 74506-630-70 4Result Comment: [03/01/2017] [facility] 3862-5392-98 Medications acetaminophen/butalbital/caffeine 325 mg-50 mg-40 mg oral capsule 1 capsule, By Mouth, Every 4 hours, PRN NEEDED FOR HEADACHE, # 180 capsule, 3 Refills, Acute 11/20/21 17:41:00 EDT, 11/20/20 17:41:00 EDT, [facility], 30, 1 capsule By [...] tablet, 1 Refills, Maintenance, 11/20/20 17:38:00 EDT, [facility], 175.26, cm, 11/20/20 14:07:00 EDT, Height, 121.7, kg, 09/01/19 8:19:00 EDT, Dry Weight Start Date: 11/20/20 Status: Ordered cranberry oral tablet 0 Refills, Maintenance, 09/24/16 10:41:52 Start Date: 09/24/16 Status: Ordered Flonase 50 mcg/inh nasal spray 1 sprays = 50 mcg, Nares, Both, Daily, # 16 Gm, 5 Refills, Maintenance, 01/15/20 14:58:00 EDT, Nasal [place], [facility]/pharmacy #[id number], 1 sprays Nares, [...] 11/20/20 17:39:00 EDT, Route to Pharmacy Electronically, [facility], Partial fill upon patient request if the prescription is... Start Date: 11/20/20 Status: Ordered Multivitamin Tablet 1 tablet, By Mouth, Daily, 0 Refills Start Date: 09/04/08 Stop Date: 10/04/08 Status: Ordered omeprazole 20 mg oral enteric coated capsule 1 capsule, By Mouth, Daily, # 90 capsule, 3 Refills, Maintenance, 11/20/20 17:40:00 EDT, [facility], 175.26, cm, 11/20/20 14:07:00 EDT, Height, 121.7, kg, 09/01/19 8:19:00 EDT,Dry Weight Start Date: 11/20/20 Status: Ordered PARoxetine 20 mg oral tablet 1, tablet, By Mouth, Daily, # 90 tablet, Refills 1, Route to Pharmacy Electronically, [facility], 175.26, cm, 11/20/20 14:07:00 EDT, Height, [...] 11/20/21 17:41:00 EDT, 11/20/20 17:40:00 EDT, Tablet, [facility], Partial fill upon patient [...]
--- OUTSIDE RECORDS SUMMARY | 2023-02-26 11:20 | XMS_ITS | Continuity of Care Document ---
Author Name Unknown Organization [facility] Must[place] lt Address [address] [place] [address]- Care Team Providers Care Director Case Management Name Role Phone Grecia SEGUNDO, Talat March Primary Care Physician [place] [facility] [place] 02/26/22 - 03/28/22 [facility] Adult [address] [place] [address]- Attending Physician: Vitor Asencio Admitting Physician: AdmVitor garcia Referring Physician: Admtr, Ar8 Allergies, Adverse Reactions, [...] inactivated 2 03/01/17 Gi maggie SARS-CoV-2 mRNA ([id number]) vax 09/16/21 Recorded zoster vaccine, inactivated 04/14/21 Recorded zoster vaccine, inactivated 12/09/20 Recorded SARS-CoV-2 (COVID-19) mRNA BNT-162b2 vac 01/08/21 Recorded SARS-CoV-2 (COVID-19) mRNA BNT-162b2 vac 05/22/20 Given SARS-CoV-2 (COVID-19) mRNA BNT-162b2 vac 05/01/20 Given Influenza Virus Vaccine (oldterm) 11/16/19 Recorde d tetanus/diphtheria/pertussis, acel(Tdap) 3 08/23/17 Given pneumococcal 13-valent vaccine 4 03/01/17 Given 1Result Comment: [facility]-[id number] 2Result Comment: [03/01/2017] [facility] 25359-688-04 3Result Comment: [08/23/2017] [facility] [id number] 4Result Comment: [03/01/2017] [facility] [id number] Medications BiPAP Equipment BiPAP 02/01, Maintenance, nasal mask [employer] [facility], 05/16/18 15:13:22 EST, Compound Start Date: 05/16/18 Status: Ordered Calcium 600 +D By Mouth, 0 Refills Start Date: 09/04/08 Stop Date: 10/04/08 Status: Ordered clonazePAM 1 mg oral tablet 1 tablet, By Mouth, 2 times a day, # 180 tablet, 1 Refills, Maintenance, 02/03/22 15:36:00 EST, [facility], 175.26, cm, 02/03/22 14:57:00 EST, Height Start Date: 02/03/22 Status: Ordered cranberry oral tablet 0 Refills, Maintenance, 09/24/16 10:41:52 Start Date: 09/24/16 Status: Ordered Flonase 50 mcg/inh nasal spray 1 sprays = 50 mcg, Nares, Both, Daily, # 16 Gm, 5 Refills, Maintenance, 01/15/20 14:58:00 EDT, Nasal [place], [id number], 1 sprays Nares, Both Daily, 175.26, cm, 12/04/19 14:32:00 EDT, Height, 121.7, kg, 09/01/19 8:19:00 EDT, Dry Weight Start Date: 01/15/20 Status: Ordered fluconazole 150 mg oral tablet 1 tablet = 150 mg, By Mouth, Once, # 1 tablet, 0 Refills, Soft Stop, 02/26/22 15:22:00 EST, Tablet,[id number], Partial fill upon patient [...] 11/20/20 17:39:00 EDT, Route to Pharmacy Electronically, [facility], Partial fill upon patient [...] 3 Refills, Maintenance, 02/03/22 15:34:00 EST, Suspension, [facility], Partial fill upon patient [...] 02/26/22 13:19:00 EST, Route to Pharmacy Electronically, [facility]/pharmacy #[id number], Partial fill upon patient request if the [...] 01/12/23 0:00:00 EDT, 01/12/22 17:01:00 EDT, Tablet, [facility] Carem... Start Date: 01/12/22 Stop [...] Status Never smoker entered on: 09/24/16 Sex EKG study * Event Display: EKG Authored Date: Note * Event Display: Non BH Lab Results Authored Date: * Event Display: CT Scan Ankle/Foot, Non- BH Authored Date: * Event Display: Non BH Lab Results Authored Date: * Event Display: Non BH Lab Results Authored Date: * Event Display: X-Ray Hip/Groin, Non- BH Authored Date: Patient Care team information Care Team Personnel Name: Grecia SEGUNDO, Talat March Position: [facility] Primary Care Physician Member Role: PCP Address: Address: [address] [place] [address]- Care Team Related Persons Name: ANNIE HASSAN Address: home [address] [place] [address] Name: LISHA LOVE Address: [address] [place] [address]
--- OUTSIDE RECORDS SUMMARY | 2023-02-26 11:20 | XMS_ITS | Continuity of Care Document ---
Author Name Unknown Organization [facility] Must[place] lt Address [address] [place] [address]- Care Team Providers Care Medical Technologist Chief Name Role Phone Grecia SEGUNDO, Talat March Primary Care Physician [phone] [facility] Date(s): 10/09/19 - 11/08/19 [facility] Adult [address] [place] [address]- [facility] Allergies, Adverse Reactions, Alerts Substance Reaction Severity [...] 13-valent vaccine 4 03/01/17 Given 1Result Comment: [facility]-[id number] 2Result Comment: [03/01/2017] [facility] [id number] 3Result Comment: [08/23/2017] [facility] [id number] 4Result Comment: [03/01/2017] [facility] [id number] Medications acetaminophen/butalbital/caffeine 325 mg-50 mg-40 mg oral capsule 1 capsule, By Mouth, Every 4 hours, PRN for headache, # 180 capsule, 1 Refills, Maintenance, 10/11/19 5:21:00 EDT, Capsule, [facility], 1 capsule By Mouth Every 4 [...] tablet, 1 Refills, Maintenance, 10/05/19 12:06:00 EDT, [facility], 175.26, cm, 10/05/19 10:27:00 EDT, Height, 121.7, kg, 09/01/19 8:19:00 EDT, Dry Weight Start Date: 10/05/19 Status: Ordered cranberry oral tablet 0 Refills, Maintenance, 09/24/16 10:41:52 Start Date: 09/24/16 Status: Ordered Dilaudid 2 mg oral tablet 1 tablet = 2 mg, By Mouth, Every 4 hours, PRN for pain, # 18 tablet, 0 Refills, Maintenance, 09/01/19 10:16:00 EDT, Tablet, [facility], Partial fill upon patient request, 175.26, cm,09/01/19 8:19:00 EDT, Height, 121.7, kg, 09/01/19 8... Start Date: 09/01/19 Status: Ordered Flonase 50 mcg/inh nasal spray 1 sprays = 50 mcg, Nares, Both, Daily, # 16 Gm, 5 Refills, Maintenance, 11/08/18 11:12:34 EDT, Nasal [place], 1 sprays Nares, Both Daily Start Date: 11/08/18 Status: Ordered Hyoscyamine 0 Refills, Maintenance, 09/24/16 10:41:29 Start Date: 09/24/16 Status: Ordered Multivitamin Tablet 1 tablet, By Mouth, Daily, 0 Refills Start Date: 09/04/08 Stop Date: 10/04/08 Status: Ordered omeprazole 20 mg oral enteric coated capsule 1 capsule, By Mouth, Daily, # 90 capsule, 3 Refills, Maintenance, 10/05/19 12:07:00 EDT, [facility], 175.26, cm, 10/05/19 10:27:00 EDT, Height, 121.7, kg, 09/01/19 8:19:00 EDT,Dry Weight Start Date: 10/05/19 Status: Ordered PARoxetine 20 mg oral tablet 1, tablet, By Mouth, Daily, # 90 tablet, Refills 3, Tot. Refills 3, Maintenance, 06/23/19 11:03:00 EDT, Route to Pharmacy Electronically, [facility], 162.56, cm, 11/08/18 10:49:00 EDT, Height [...] 10/05/19 12:07:00 EDT, Route to Pharmacy Electronically, [facility], 175.26, cm, 10/05/19 10:27:00 EDT, Height, [...] Refills, Maintenance, 10/05/19 12:07:00 EDT, CR Capsule, [facility], 175.26, cm, 10/05/19 10:27:00 EDT, Height, 121.7, kg, 09/01/19 8:19:00 EDT, Dry Weight Start Date: 10/05/19 Status: Ordered Zofran 4 mg oral tablet 1 tablet = 4 mg, By Mouth, Every 8 hours, PRN Nausea & Vomiting, # 10 tablet, 0 Refills, Maintenance, 09/01/19 10:18:00 EDT, Tablet, [facility], 175.26, cm, 09/01/19 8:19:00 [...]
--- OUTSIDE RECORDS SUMMARY | 2023-02-26 11:20 | XMS_ITS | Continuity of Care Document ---
Author Name Unknown Organization [facility] Address [address] [facility] [place] [address]- Care Team Providers Care Claim Approver Name Role Phone Grecia SEGUNDO, Talat March Primary Care Physician Encounter 11/23/19 - 11/30/19 [facility] [address], [address] [place] [address]- [phone] Attending Physician: Bebeto Land MD Admitting Physician: Bebeto Land MD Referring Physician: [...] 1Result Comment: [facility]-[id number] 2Result Comment: [03/01/2017] [facility] 26332-582-87 3Result Comment: [08/23/2017] [facility] [id number] 4Result Comment: [03/01/2017] [facility] [id number] Medications acetaminophen/butalbital/caffeine 325 mg-50 mg-40 mg oral capsule 1 capsule, By Mouth, Every 4 hours, PRN for headache, # 180 capsule, 1 Refills, Maintenance, 10/11/19 5:21:00 EDT, Capsule, [facility], 1 capsule By Mouth Every [...] tablet, 1 Refills, Maintenance, 10/05/19 12:06:00 EDT, [facility], 175.26, cm, 10/05/19 10:27:00 EDT, Height, 121.7, kg, 09/01/19 8:19:00 EDT, Dry Weight Start Date: 10/05/19 Status: Ordered cranberry oral tablet 0 Refills, Maintenance, 09/24/16 10:41:52 Start Date: 09/24/16 Status: Ordered Dilaudid 2 mg oral tablet 1 tablet = 2 mg, By Mouth, Every 4 hours, PRN for pain, # 18 tablet, 0 Refills, Maintenance, 09/01/19 10:16:00 EDT, Tablet, [facility], Partial fill upon patient request, 175.26, cm,09/01/19 8:19:00 EDT, Height, 121.7, kg, 09/01/19 8... Start Date: 09/01/19 Status: Ordered Flonase 50 mcg/inh nasal spray 1 sprays = 50 mcg, Nares, Both, Daily, # 16 Gm, 5 Refills, Maintenance, 11/08/18 11:12:34 EDT, Nasal [place], 1 sprays Nares, Both Daily Start Date: 11/08/18 Status: Ordered Hyoscyamine 0 Refills, Maintenance, 09/24/16 10:41:29 Start Date: 09/24/16 Status: Ordered Multivitamin Tablet 1 tablet, By Mouth, Daily, 0 Refills Start Date: 09/04/08 Stop Date: 10/04/08 Status: Ordered omeprazole 20 mg oral enteric coated capsule 1 capsule, By Mouth, Daily, # 90 capsule, 3 Refills, Maintenance, 10/05/19 12:07:00 EDT, [facility], 175.26, cm, 10/05/19 10:27:00 EDT, Height, 121.7, kg, 09/01/19 8:19:00 EDT,Dry Weight Start Date: 10/05/19 Status: Ordered PARoxetine 20 mg oral tablet 1, tablet, By Mouth, Daily, # 90 tablet, Refills 3, Tot. Refills 3, Maintenance, 06/23/19 11:03:00 EDT, Route to Pharmacy Electronically, [facility], 162.56, cm, 11/08/18 10:49:00 EDT, [...] Route to Pharmacy Electronically, [facility], 175.26, cm, 10/05/19 10:27:00 EDT, [...] 12:07:00 EDT, CR Capsule, [facility], 175.26, cm, 10/05/19 10:27:00 EDT, Height, 121.7, kg, 09/01/19 8:19:00 EDT, Dry Weight Start Date: 10/05/19 Status: Ordered Zofran 4 mg oral tablet 1 tablet = 4 mg, By Mouth, Every 8 hours, PRN Nausea & Vomiting, # 10 tablet, 0 Refills, Maintenance, 09/01/19 10:18:00 EDT, Tablet, [facility], 175.26, cm, 09/01/19 8:19:00 EDT,Height, 121.7, kg, [...]
--- OUTSIDE RECORDS SUMMARY | 2023-02-26 11:20 | XMS_ITS | Continuity of Care Document ---
Author Name Unknown Organization [facility] Address [address] [place] [address] [address], [address] [place] [address]- Care Team Providers Care Foundry Operator Name Role Phone Talat Paige MD Primary Care Physician [phone] Encounter [facility] Date(s): 12/05/19 - 12/12/19 [facility] [address] [place] [address], [address] [place] [address]- [facility] Attending Physician: Amos Mitchell MD Referring Physician: Talat Paige MD Allergies, [...] 1Result Comment: [facility]-[id number] 2Result Comment: [03/01/2017] [facility] [id number] 3Result Comment: [08/23/2017] [facility] [id number] 4Result Comment: [03/01/2017] [facility] [id number] Medications acetaminophen/butalbital/caffeine 325 mg-50 mg-40 mg oral [...] tablet, 1 Refills, Maintenance, 10/05/19 12:06:00 EDT, [facility], 175.26, cm, 10/05/19 10:27:00 EDT, Height, 121.7, kg, 09/01/19 8:19:00 EDT, Dry Weight Start Date: 10/05/19 Status: Ordered cranberry oral tablet 0 Refills, Maintenance, 09/24/16 10:41:52 Start Date: 09/24/16 Status: Ordered Dilaudid 2 mg oral tablet 1 tablet = 2 mg, By Mouth, Every 4 hours, PRN for pain, # 18 tablet, 0 Refills, Maintenance, 09/01/19 10:16:00 EDT, Tablet, [facility], Partial fill upon patient request, 175.26, cm,09/01/19 8:19:00 EDT, Height, 121.7, kg, 09/01/19 8... Start Date: 09/01/19 Status: Ordered Flonase 50 mcg/inh nasal spray 1 sprays = 50 mcg, Nares, Both, Daily, # 16 Gm, 5 Refills, Maintenance, 11/08/18 11:12:34 EDT, Nasal [place], 1 sprays Nares, Both Daily Start Date: [...] 06/23/19 11:03:00 EDT, Route to Pharmacy Electronically, [facility], 162.56, cm, 11/08/18 [...] 0 Refills, Maintenance, 09/01/19 10:18:00 EDT, Tablet, [facility], 175.26, cm, 09/01/19 8:19:00 EDT,Height, 121.7, [...] oldest [Reference Range]: 1 Height 175.26 cm (12/04/19 2:32 PM) Weight 124 kg (12/04/19 2:32 PM) Body Mass Index [18.5-24.99] 40.37 *>HHI* (12/04/19 2:32 PM) Social History Social History Type Response Smoking Status Never smoker entered on: 09/24/16 Sex
--- OUTSIDE RECORDS SUMMARY | 2023-02-26 11:20 | XMS_ITS | Continuity of Care Document ---
Author Name Unknown Organization [facility] Address [address] [place] [address]- Care Team Providers Care Electromedical Equipment Repairer Name Role Phone Grecia SEGUNDO, Talat March Primary Care Physician Encounter [facility] Date(s): 09/14/22 - 10/14/[address] [facility] Adult [address] [place] [address]- Allergies, Adverse Reactions, Alerts Substance Reaction Severity [...] inactivated 3 03/01/17 Gi maggie SARS-CoV-2 mRNA ([id number]) vax 09/16/21 Recorded zoster vaccine, inactivated 04/14/21 Recorded zoster vaccine, inactivated 12/09/20 Recorded SARS-CoV-2 (COVID-19) mRNA BNT-162b2 vac 01/08/21 Recorded SARS-CoV-2 (COVID-19) mRNA BNT-162b2 vac 05/22/20 Given SARS-CoV-2 (COVID-19) mRNA BNT-162b2 vac 05/01/20 Given Influenza Virus Vaccine (oldterm) 11/16/19 Recorde d tetanus/diphtheria/pertussis, acel(Tdap) 4 08/23/17 Given pneumococcal 13-valent vaccine 5 03/01/17 Given 1Result Comment: [id number] 2Result Comment: [facility]-[id number] 3Result Comment: [03/01/2017] [facility] [id number] 4Result Comment: [08/23/2017] [facility] 08096-377-17 5Result Comment: [03/01/2017] [facility] [id number] Medications Calcium 600 +D By Mouth, 0 Refills Start Date: 09/04/08 Stop Date: 10/04/08 Status: Ordered clonazePAM 1 mg oral tablet 1 tablet, By Mouth, 2 times a day, # 180 tablet, 1 Refills, Maintenance, 09/16/22 8:47:00 EDT, [facility], 175.26, cm, 06/29/22 11:56:00 EDT, Height Start Date: 09/16/22 Status: Ordered cranberry oral tablet 0 Refills, Maintenance, 09/24/16 10:41:52 Start Date: 09/24/16 Status: Ordered Flonase 50 mcg/inh nasal spray 1 sprays = 50 mcg, Nares, Both, Daily, # 16 Gm, 5 Refills, Maintenance, 01/15/20 14:58:00 EDT, Nasal [place], [facility]/pharmacy #[id number], 1 sprays Nares, Both Daily, 175.26, [...] Stop Date: 10/04/08 Status: Ordered nystatin topical 831236 u/gm powder 1 application, Topically, 2 times a day, Apply to affected areas twice a day., # 60 Gm, 5 Refills, Acute 05/07/23 14:21:00 EST, 05/07/22 14:21:00 EST, Powder, [facility], 1 application Topically 2 times [...] 10/09/22 8:07:00 EDT, Route to Pharmacy Electronically, [facility], 175.26, cm, 06/29/22 [...] 06/29/22 11:50:00 EDT, Route to Pharmacy Electronically, [facility] [...] Acute 08/11/23 0:00:00 EDT, 08/10/22 18:20:00EDT, [facility]/pharmacy #[id number], Partial fill upon patient... Start Date: 08/10/22 Stop Date: 08/11/23 Status: Ordered simvastatin 20 mg oral tablet 1, tablet, By Mouth, Daily at bedtime, # 90 tablet, Refills 1, Maintenance, 10/09/22 8:07:00 EDT, Route to Pharmacy Electronically, [facility], 175.26, cm, 06/29/22 11:56:00 EDT, Height Start Date: 10/09/22 Status: Ordered ubrogepant 100 mg oral tablet 1 tablet = 100 mg, By Mouth, Daily, PRN Headache, # 9 tablet, 0 Refills, Soft Stop, 08/10/22 18:12:00 EDT, [facility]/pharmacy #[id number], Partial fill upon patient request if [...] Care Member Role: PCP Address: Address: [address] [place] [address]- Care Team Related Persons Name: ANNIE HASSAN Address: home [address] [place] [address] Name: LISHA LOVE Address: home [address] [place] [address]
--- OUTSIDE RECORDS SUMMARY | 2023-02-26 11:20 | XMS_ITS | Continuity of Care Document ---
Author Name Unknown Organization [facility] Address [address] [place] [address]- Care Team Providers Care Director Intelligence Analysis Programs Name Role Phone Talat Paige MD Primary Care Physician [place] [facility] [place] Date(s): 04/10/20 - 04/17/20 [facility] Adult [address] [place] [address]- Attending Physician: Talat Paige MD Allergies, Adverse [...] vaccine 4 03/01/17 Given 1Result Comment: [facility]-[id number] 2Result Comment: [03/01/2017] [facility] 12624-650-36 3Result Comment: [08/23/2017] [facility] 35423-827-41 4Result Comment: [03/01/2017] [facility] 9535-8015-98 Medications acetaminophen/butalbital/caffeine 325 mg-50 mg-40 mg oral [...] tablet, 1 Refills, Maintenance, 04/10/20 11:24:00 EST, [facility], 175.26, cm, 12/04/19 14:32:00 EDT, Height, 121.7, kg, 09/01/19 8:19:00 EDT, Dry Weight Start Date: 04/10/20 Status: Ordered cranberry oral tablet 0 Refills, Maintenance, 09/24/16 10:41:52 Start Date: 09/24/16 Status: Ordered Dilaudid 2 mg oral tablet 1 tablet = 2 mg, By Mouth, Every 4 hours, PRN for pain, # 18 tablet, 0 Refills, Maintenance, 09/01/19 10:16:00 EDT, Tablet, [facility], Partial fill upon patient request, 175.26, cm,09/01/19 8:19:00 EDT, Height, 121.7, kg, 09/01/19 8... Start Date: 09/01/19 Status: Ordered Flonase 50 mcg/inh nasal spray 1 sprays = 50 mcg, Nares, Both, Daily, # 16 Gm, 5 Refills, Maintenance, 01/15/20 14:58:00 EDT, Nasal [place], [facility]/pharmacy #[id number], 1 sprays Nares, Both Daily, 175.26, cm, 12/04/19 14:32:00 EDT, Height, 121.7, kg, 09/01/19 8:19:00 EDT, Dry Weight Start Date: 01/15/20 Status: Ordered Hyoscyamine 0 Refills, Maintenance, 09/24/16 10:41:29 Start Date: 09/24/16 Status: Ordered ketoconazole 2% topical shampoo 1 application, Topically, Every Wednesday, Wednesday and Wednesday, Three times weekly, # 120 mL, 5 Refills, Soft Stop, 04/10/20 11:31:00 EST, Shampoo, [facility]/pharmacy #[id number], Partial fill upon patient requestif [...] 04/10/20 11:24:00 EST, Route to Pharmacy Electronically, [facility], 175.26, cm, 12/04/19 14:32:00 EDT, Height, [...] 0 Refills, Maintenance, 09/01/19 10:18:00 EDT, Tablet, [facility], 175.26, cm, 09/01/19 8:19:00 EDT,Height, 121.7, kg, [...]
--- OUTSIDE RECORDS SUMMARY | 2023-02-26 11:20 | XMS_ITS | Continuity of Care Document ---
Author Name Unknown Organization [facility] Address [address] [facility], [address] Floor, [address] [place] [address]- Care Team Providers Care Production Support Analyst Name Role Phone Grecia SEGUNDO, Talat March Primary Care Physician Encounter [facility] [place] Date(s): 08/07/22 - 09/06/22 [facility] [address], [address], [address] [place] [address]- Allergies, Adverse Reactions, Alerts Substance Reaction Severity [...] inactivated 3 03/01/17 Gi maggie SARS-CoV-2 mRNA ([id number]) vax 09/16/21 Recorded zoster vaccine, inactivated 04/14/21 Recorded zoster vaccine, inactivated 12/09/20 Recorded SARS-CoV-2 (COVID-19) mRNA BNT-162b2 vac 01/08/21 Recorded SARS-CoV-2 (COVID-19) mRNA BNT-162b2 vac 05/22/20 Given SARS-CoV-2 (COVID-19) mRNA BNT-162b2 vac 05/01/20 Given Influenza Virus Vaccine (oldterm) 11/16/19 Recorde d tetanus/diphtheria/pertussis, acel(Tdap) 4 08/23/17 Given pneumococcal 13-valent vaccine 5 03/01/17 Given 1Result Comment: [id number] 2Result Comment: [facility]-[id number] 3Result Comment: [03/01/2017] [facility] 99995-450-75 4Result Comment: [08/23/2017] [facility] 35451-238-28 5Result Comment: [03/01/2017] [facility] 4138-9122-00 Medications Calcium 600 +D By Mouth, 0 Refills Start Date: 09/04/08 Stop Date: 10/04/08 Status: Ordered clonazePAM 1 mg oral tablet 1 tablet, By Mouth, 2 times a day, # 180 tablet, 1 Refills, Maintenance, 02/03/22 15:36:00 EST, [facility], 175.26, cm, 02/03/22 14:57:00 EST, Height Start Date: 02/03/22 Status: Ordered cranberry oral tablet 0 Refills, Maintenance, 09/24/16 10:41:52 Start Date: 09/24/16 Status: Ordered Flonase 50 mcg/inh nasal spray 1 sprays = 50 mcg, Nares, Both, Daily, # 16 Gm, 5 Refills, Maintenance, 01/15/20 14:58:00 EDT, Nasal [place], [facility]/pharmacy #[id number], 1 sprays Nares, Both Daily, 175.26, cm, 12/04/19 14:32:00 EDT, Height, 121.7, kg, 09/01/19 8:19:00 EDT, Dry Weight Start Date: 01/15/20 Status: Ordered hyoscyamine 0.125 mg oral tablet 0.125 mg, 1, tablet, By Mouth, Daily, PRN, # 45 tablet, Refills 3, Tot. Refills 3, Maintenance, Spasm, 11/20/20 17:39:00 EDT, Route to Pharmacy Electronically, [facility], Partial fill upon patient request if [...] Stop Date: 10/04/08 Status: Ordered nystatin topical 881719 u/gm powder 1 application, Topically, 2 times a day, Apply to affected areas twice a day., # 60 Gm, 5 Refills, Acute 05/07/23 14:21:00 EST, 05/07/22 14:21:00 EST, Powder, [facility], 1 application Topically 2 times a day,Instr:Apply to affe... Start Date: 05/07/22 Stop Date: 05/07/23 Status: Ordered omeprazole 40 mg oral enteric coated capsule 1 capsule = 40 mg, By Mouth, 2 times a day, # 180 capsule, 3 Refills, Maintenance, 02/03/22 15:34:00 EST, Suspension, [facility], Partial fill upon patient request if the prescription is for a schedule II opioid drug., 175.26, c... Start Date: 02/03/22 Status: Ordered PARoxetine 20 mg oral tablet 1, tablet, By Mouth, Daily, # 90 tablet, Refills 1, Maintenance, 05/12/22 13:58:00 EST, Route to Pharmacy Electronically, [facility], 175.26, cm, 05/07/22 [...] 06/29/22 11:50:00 EDT, Route to Pharmacy Electronically, [facility], Partial fill upon patient request if the prescr... Start Date: 06/29/22 Status: Ordered rizatriptan 10 mg oral tablet 1 tablet = 10 mg, By Mouth, Daily, PRN Migraine Headache, may repeat dose in 2 hours if needed, do not exceed 2 doses in 24 hours, # 9 tablet, 5 Refills, Acute 08/11/23 0:00:00 EDT, 08/10/22 18:20:00EDT, [facility]/pharmacy #[id number], Partial fill upon [...] 0 Refills, Soft Stop, 08/10/22 18:12:00 EDT, [facility]/pharmacy #[id number], Partial fill upon [...] Primary Care Member Role: PCP Address: Address: [address] [place] [address]- Care Team Related Persons Name: ANNIE HASSAN Address: home [address] [place] [address] Name: LISHA LOVE Address: home [address] [place] [address]
--- OUTSIDE RECORDS SUMMARY | 2023-02-26 11:20 | XMS_ITS | Continuity of Care Document ---
Author Name Unknown Organization [facility] Address [address] [place] [address]- Care Team Providers Care Product Marketer Name Role Phone Grecia SEGUNDO, Talat March Primary Care Physician Encounter [facility] Date(s): 10/30/19 - 11/29/19 [facility] [place] [facility] [address] [place] [address]- [facility] Allergies, Adverse Reactions, Alerts Substance Reaction [...] 13-valent vaccine 4 03/01/17 Given 1Result Comment: [facility]-[id number] 2Result Comment: [03/01/2017] [facility] 11224-656-90 3Result Comment: [08/23/2017] [facility] 52129-606-16 4Result Comment: [03/01/2017] [facility] 5394-2355-54 Medications acetaminophen/butalbital/caffeine 325 mg-50 mg-40 mg oral capsule 1 capsule, By Mouth, Every 4 hours, PRN for headache, # 180 capsule, 1 Refills, Maintenance, 10/11/19 5:21:00 EDT, Capsule, [facility], [...] tablet, 1 Refills, Maintenance, 10/05/19 12:06:00 EDT, [facility], 175.26, cm, 10/05/19 10:27:00 EDT, Height, 121.7, kg, 09/01/19 8:19:00 EDT, Dry Weight Start Date: 10/05/19 Status: Ordered cranberry oral tablet 0 Refills, Maintenance, 09/24/16 10:41:52 Start Date: 09/24/16 Status: Ordered Dilaudid 2 mg oral tablet 1 tablet = 2 mg, By Mouth, Every 4 hours, PRN for pain, # 18 tablet, 0 Refills, Maintenance, 09/01/19 10:16:00 EDT, Tablet, [facility], Partial fill upon patient request, 175.26, cm,09/01/19 8:19:00 EDT, Height, 121.7, kg, 09/01/19 8... Start Date: 09/01/19 Status: Ordered Flonase 50 mcg/inh nasal spray 1 sprays = 50 mcg, Nares, Both, Daily, # 16 Gm, 5 Refills, Maintenance, 11/08/18 11:12:34 EDT, Nasal [place], 1 sprays Nares, Both Daily Start Date: 11/08/18 Status: Ordered Hyoscyamine 0 Refills, Maintenance, 09/24/16 10:41:29 Start Date: 09/24/16 Status: Ordered Multivitamin Tablet 1 tablet, By Mouth, Daily, 0 Refills Start Date: 09/04/08 Stop Date: 10/04/08 Status: Ordered omeprazole 20 mg oral enteric coated capsule 1 capsule, By Mouth, Daily, # 90 capsule, 3 Refills, Maintenance, 10/05/19 12:07:00 EDT, [facility], 175.26, cm, 10/05/19 10:27:00 EDT, [...] 12:07:00 EDT, Route to Pharmacy Electronically, [facility], 175.26, cm, 10/05/19 10:27:00 EDT, [...] Maintenance, 10/05/19 12:07:00 EDT, CR Capsule, [facility], 175.26, cm, 10/05/19 10:27:00 EDT, Height, 121.7, kg, 09/01/19 8:19:00 EDT, Dry Weight Start Date: 10/05/19 Status: Ordered Zofran 4 mg oral tablet 1 tablet = 4 mg, By Mouth, Every 8 hours, PRN Nausea & Vomiting, # 10 tablet, 0 Refills, Maintenance, 09/01/19 10:18:00 EDT, Tablet, [facility], 175.26, cm, 09/01/19 8:19:00 EDT,Height, 121.7, kg, [...]
--- OUTSIDE RECORDS SUMMARY | 2023-02-26 11:20 | XMS_ITS | Continuity of Care Document ---
Author Name Unknown Organization [facility] lt Address [address] [place] [address]- Care Team Providers Care Holter Scanning Technician Name Role Phone Grecia SEGUNDO, Talat March Primary Care Physician [phone] Encounter [facility] Date(s): 11/08/19 - 12/08/19 [facility] Adult [address] [place] [address]- [facility] Allergies, Adverse Reactions, Alerts Substance Reaction [...] Given 1Result Comment: [facility]-[id number] 2Result Comment: [03/01/2017] [facility] 54532-137-81 3Result Comment: [08/23/2017] [facility] 69454-139-08 4Result Comment: [03/01/2017] [facility] [id number] Medications acetaminophen/butalbital/caffeine 325 mg-50 mg-40 mg oral capsule 1 capsule, By Mouth, Every 4 hours, PRN for headache, # 180 capsule, 1 Refills, Maintenance, 10/11/19 5:21:00 EDT, Capsule, [facility], 1 capsule By Mouth [...] tablet, 1 Refills, Maintenance, 10/05/19 12:06:00 EDT, [facility], 175.26, cm, 10/05/19 10:27:00 EDT, Height, 121.7, kg, 09/01/19 8:19:00 EDT, Dry Weight Start Date: 10/05/19 Status: Ordered cranberry oral tablet 0 Refills, Maintenance, 09/24/16 10:41:52 Start Date: 09/24/16 Status: Ordered Dilaudid 2 mg oral tablet 1 tablet = 2 mg, By Mouth, Every 4 hours, PRN for pain, # 18 tablet, 0 Refills, Maintenance, 09/01/19 10:16:00 EDT, Tablet, [facility], Partial fill upon patient request, 175.26, cm,09/01/19 8:19:00 EDT, Height, 121.7, kg, 09/01/19 8... Start Date: 09/01/19 Status: Ordered Flonase 50 mcg/inh nasal spray 1 sprays = 50 mcg, Nares, Both, Daily, # 16 Gm, 5 Refills, Maintenance, 11/08/18 11:12:34 EDT, Nasal [place], 1 sprays Nares, Both Daily Start Date: 11/08/18 Status: Ordered Hyoscyamine 0 Refills, Maintenance, 09/24/16 10:41:29 Start Date: 09/24/16 Status: Ordered Multivitamin Tablet 1 tablet, By Mouth, Daily, 0 Refills Start Date: 09/04/08 Stop Date: 10/04/08 Status: Ordered omeprazole 20 mg oral enteric coated capsule 1 capsule, By Mouth, Daily, # 90 capsule, 3 Refills, Maintenance, 10/05/19 12:07:00 EDT, [facility], 175.26, cm, 10/05/19 10:27:00 EDT, Height, 121.7, kg, 09/01/19 8:19:00 EDT,Dry Weight Start Date: 10/05/19 Status: Ordered PARoxetine 20 mg oral tablet 1, tablet, By Mouth, Daily, # 90 tablet, Refills 3, Tot. Refills 3, Maintenance, 06/23/19 11:03:00 EDT, Route to Pharmacy Electronically, [facility], 162.56, cm, 11/08/18 10:49:00 [...] 10/05/19 12:07:00 EDT, Route to Pharmacy Electronically, [facility], 175.26, cm, 10/05/19 10:27:00 [...] Refills, Maintenance, 10/05/19 12:07:00 EDT, CR Capsule, [facility], 175.26, cm, 10/05/19 10:27:00 EDT, Height, 121.7, kg, 09/01/19 8:19:00 EDT, Dry Weight Start Date: 10/05/19 Status: Ordered Zofran 4 mg oral tablet 1 tablet = 4 mg, By Mouth, Every 8 hours, PRN Nausea & Vomiting, # 10 tablet, 0 Refills, Maintenance, 09/01/19 10:18:00 EDT, Tablet, [facility], 175.26, cm, 09/01/19 8:19:00 EDT,Height, [...]
--- OUTSIDE RECORDS SUMMARY | 2023-02-26 11:21 | XMS_ITS | Continuity of Care Document ---
Author Name Unknown Organization [facility] Jim Hodges Mustapha lt Address [address] [place] [address]- Care Team Providers Care Director Part Name Role Phone Grecia SEGUNDO, Talat March Primary Care Physician [phone] Encounter [facility] [place] Date(s): 06/09/21 - 07/09/21 [facility] Adult [address] [place] [address]- Allergies, Adverse Reactions, Alerts Substance Reaction Severity [...] 13-valent vaccine 4 03/01/17 Given 1Result Comment: [facility]-[id number] 2Result Comment: [03/01/2017] [facility] [id number] 3Result Comment: [08/23/2017] [facility] [id number] 4Result Comment: [03/01/2017] [facility] [id number] Medications acetaminophen/butalbital/caffeine 325 mg-50 mg-40 mg oral capsule 1 capsule, By Mouth, Every 4 hours, PRN NEEDED FOR HEADACHE, # 180 capsule, 3 Refills, Acute 11/20/21 17:41:00 EDT, 11/20/20 17:41:00 EDT, [facility], 30, 1 capsule By MouthEvery 4 hours,PRN: NEEDED FOR HEADA... Start Date: 11/20/20 Stop Date: 11/20/21 Status: Ordered BiPAP Equipment BiPAP /, Maintenance, nasal mask Reliable Respiratory, 05/16/18 15:13:22 EST, Compound Start Date: 05/16/18 Status: Ordered Calcium 600 +D By Mouth, 0 Refills Start Date: 09/04/08 Stop Date: 10/04/08 Status: Ordered clonazePAM 1 mg oral tablet 1 tablet, By Mouth, 2 times a day, # 180 tablet, 1 Refills, Maintenance, 07/01/21 6:15:00 EDT, [facility], 175.26, cm, 03/25/21 7:10:00 EST, Height, 121.7, kg, 09/01/19 8:19:00EDT, Dry Weight Start Date: 07/01/21 Status: Ordered cranberry oral tablet 0 Refills, Maintenance, 09/24/16 10:41:52 Start Date: 09/24/16 Status: Ordered Flonase 50 mcg/inh nasal spray 1 sprays = 50 mcg, Nares, Both, Daily, # 16 Gm, 5 Refills, Maintenance, 01/15/20 14:58:00 EDT, Nasal [place], [facility]/pharmacy #[id number], 1 sprays Nares, [...] capsule, 3 Refills, Maintenance, 11/20/20 17:40:00 EDT, [facility], 175.26, cm, 11/20/20 14:07:00 EDT, Height, 121.7, kg, 09/01/19 8:19:00 EDT,Dry Weight Start Date: 11/20/20 Status: Ordered PARoxetine 20 mg oral tablet 1, tablet, By Mouth, Daily, # 90 tablet, Refills 1, Route to Pharmacy Electronically, [facility], 175.26, cm, 03/25/21 7:10:00 [...] 11/20/21 17:41:00 EDT, 11/20/20 17:40:00 EDT, Tablet, [facility], Partial fill upon patient request if the prescription is for a schedule II opi... Start Date: 11/20/20 Stop Date: 11/20/21 Status: Ordered simvastatin 20 mg oral tablet 1, tablet, By Mouth, Daily at bedtime, # 90 tablet, Refills 3, Route to Pharmacy Electronically, [facility], 175.26, cm, 03/25/21 7:10:00 [...] capsule, 3 Refills, Maintenance, 09/03/20 16:49:00 EDT, [facility], 175.26, cm, 12/04/19 14:32:00 EDT, [...]
--- OUTSIDE RECORDS SUMMARY | 2023-02-26 11:21 | XMS_ITS | Continuity of Care Document ---
Author Name Unknown Organization [facility] Jim Hodges Mustapha lt Address [address] [place] [address]- Care Team Providers Care Parachutist/Combatant Diver Qualified Name Role Phone Grecia SEGUNDO, Talat March Primary Care Physician [place] [facility] [place](s): 11/20/20 - 12/20/20 [facility] Adult [address] [place] [address]- Allergies, Adverse Reactions, Alerts Substance Reaction Severity Status ciprofloxacin weakness Active erythromycin [D]Nausea Active cimetidine WEAKNESS Active Tagamet [D]Nausea Active Levaquin spasms Active Seafood [D]Headache [D]Nausea Active Immunizations Given and Recorded Vaccine Date Status Refusal Reason zoster vaccine, inactivated 12/09/20 Recorded SARS-CoV-2 (COVID-19) [...] 4 03/01/17 Given 1Result Comment: [facility]-[id number] 2Result Comment: [03/01/2017] [facility] 98305-596-05 3Result Comment: [08/23/2017] [facility] 92031-345-03 4Result Comment: [03/01/2017] [facility] 9507-5152-08 Medications acetaminophen/butalbital/caffeine 325 mg-50 mg-40 mg oral capsule 1 capsule, By Mouth, Every 4 hours, PRN NEEDED FOR HEADACHE, # 180 capsule, 3 Refills, Acute 11/20/21 17:41:00 EDT, 11/20/20 17:41:00 EDT, [facility], 30, 1 capsule By MouthEvery [...] tablet, 1 Refills, Maintenance, 11/20/20 17:38:00 EDT, [facility], 175.26, cm, 11/20/20 14:07:00 EDT, Height, 121.7, kg, 09/01/19 8:19:00 EDT, Dry Weight Start Date: 11/20/20 Status: Ordered cranberry oral tablet 0 Refills, Maintenance, 09/24/16 10:41:52 Start Date: 09/24/16 Status: Ordered Flonase 50 mcg/inh nasal spray 1 sprays = 50 mcg, Nares, Both, Daily, # 16 Gm, 5 Refills, Maintenance, 01/15/20 14:58:00 EDT, Nasal [place], [facility]/pharmacy #[id number], 1 sprays Nares, Both Daily, 175.26, [...] 11/20/20 17:39:00 EDT, Route to Pharmacy Electronically, [facility], Partial fill upon patient request if the prescription is... Start Date: 11/20/20 Status: Ordered Multivitamin Tablet 1 tablet, By Mouth, Daily, 0 Refills Start Date: 09/04/08 Stop Date: 10/04/08 Status: Ordered omeprazole 20 mg oral enteric coated capsule 1 capsule, By Mouth, Daily, # 90 capsule, 3 Refills, Maintenance, 11/20/20 17:40:00 EDT, [facility], 175.26, cm, 11/20/20 14:07:00 EDT, Height, 121.7, kg, 09/01/19 8:19:00 EDT,Dry Weight Start Date: 11/20/20 Status: Ordered PARoxetine 20 mg oral tablet 1, tablet, By Mouth, Daily, # 90 tablet, Refills 3, Tot. Refills 3, Maintenance, 04/10/20 11:24:00 EST, Route to Pharmacy Electronically, [facility], 175.26, cm, 12/04/19 [...] 11/20/21 17:41:00 EDT, 11/20/20 17:40:00 EDT, Tablet, [facility], Partial fill upon patient request [...]
--- OUTSIDE RECORDS SUMMARY | 2023-02-26 11:21 | XMS_ITS | Continuity of Care Document ---
Author Name Unknown Organization [facility] Jim Hodges Mustapha lt Address [address] [place] [address]- Care Team Providers Care Fitness Professional Name Role Phone Talat Paige MD Primary Care Physician Encounter [facility] [place] Date(s): 05/07/22 - 05/14/[address] [facility] Adult [address] [place] [address]- Attending Physician: Talat Paige MD Allergies, Adverse [...] inactivated 3 03/01/17 Gi maggie SARS-CoV-2 mRNA ([id number]) vax 09/16/21 Recorded zoster vaccine, inactivated 04/14/21 Recorded zoster vaccine, inactivated 12/09/20 Recorded SARS-CoV-2 (COVID-19) mRNA BNT-162b2 vac 01/08/21 Recorded SARS-CoV-2 (COVID-19) mRNA BNT-162b2 vac 05/22/20 Given SARS-CoV-2 (COVID-19) mRNA BNT-162b2 vac 05/01/20 Given Influenza Virus Vaccine (oldterm) 11/16/19 Recorde d tetanus/diphtheria/pertussis, acel(Tdap) 4 08/23/17 Given pneumococcal 13-valent vaccine 5 03/01/17 Given 1Result Comment: [id number] 2Result Comment: [facility]-[id number] 3Result Comment: [03/01/2017] [facility] [id number] 4Result Comment: [08/23/2017] [facility] 17652-727-09 5Result Comment: [03/01/2017] [facility] [id number] Medications Calcium 600 +D By Mouth, 0 Refills Start Date: 09/04/08 Stop Date: 10/04/08 Status: Ordered clonazePAM 1 mg oral tablet 1 tablet, By Mouth, 2 times a day, # 180 tablet, 1 Refills, Maintenance, 02/03/22 15:36:00 EST, [facility], 175.26, cm, 02/03/22 14:57:00 EST, Height Start Date: 02/03/22 Status: Ordered cranberry oral tablet 0 Refills, Maintenance, 09/24/16 10:41:52 Start Date: 09/24/16 Status: Ordered Flonase 50 mcg/inh nasal spray 1 sprays = 50 mcg, Nares, Both, Daily, # 16 Gm, 5 Refills, Maintenance, 01/15/20 14:58:00 EDT, Nasal [place], [facility]/pharmacy #[id number], 1 sprays Nares, Both Daily, 175.26, cm, 12/04/19 14:32:00 EDT, Height, 121.7, kg, 09/01/19 8:19:00 EDT, Dry Weight Start Date: 01/15/20 Status: Ordered hyoscyamine 0.125 mg oral tablet 0.125 mg, 1, tablet, By Mouth, Daily, PRN, # 45 tablet, Refills 3, Tot. Refills 3, Maintenance, Spasm, 11/20/20 17:39:00 EDT, Route to Pharmacy Electronically, [facility], Partial fill upon patient [...] Stop Date: 10/04/08 Status: Ordered nystatin topical 941022 u/gm powder 1 application, Topically, 2 times a day, Apply to affected areas twice a day., # 60 Gm, 5 Refills, Acute 05/07/23 14:21:00 EST, 05/07/22 14:21:00 EST, [place], [facility], 1 application Topically 2 times a day,Instr:Apply to affe... Start Date: 05/07/22 Stop Date: 05/07/23 Status: Ordered omeprazole 40 mg oral enteric coated capsule 1 capsule = 40 mg, By Mouth, 2 times a day, # 180 capsule, 3 Refills, Maintenance, 02/03/22 15:34:00 EST, Susp[place], [facility], Partial fill upon patient request if the prescription is for a schedule II opioid drug., 175.26, c... Start Date: 02/03/22 Status: Ordered PARoxetine 20 mg oral tablet 1, tablet, By Mouth, Daily, # 90 tablet, Refills 1, Maintenance, 05/12/22 13:58:00 EST, Route to Pharmacy Electronically, [facility], 175.26, cm, 05/07/22 [...] 02/26/22 13:19:00 EST, Route to Pharmacy Electronically, [facility]/pharmacy #[id number], Partial fill upon patient request if the [...] 01/12/23 0:00:00 EDT, 01/12/22 17:01:00 EDT, Tablet, [facility] Start Date: 01/12/22 Stop Date: 01/12/23 Status: Ordered simvastatin 20 mg oral tablet 1, tablet, By Mouth, Daily at bedtime, # 90 tablet, Refills 1, Maintenance, 05/12/22 13:58:00 EST, Route to Pharmacy Electronically, [facility], 175.26, cm, 05/07/22 14:00:00 EST,Height Start Date: 05/12/22 Status: Ordered Vitamin B2 By Mouth, Daily, [...] [Reference Range]: 1 2 Height 175.26 cm (05/07/22 2:00 PM) 175.26 cm (05/07/22 1:52 PM) Weight 120.0 kg (05/07/22 1:52 PM) Oxygen Saturation [94-100 %] 96 % (05/07/22 1:52 PM) Pulse Rate [55-90 bpm] 62 bpm (05/07/22 1:52 PM) Body Mass Index [18.5-24.99 kg/m2] 39.07 kg/m2 *>HHI* (05/07/22 1:52 PM) Blood Pressure [90-138/55-84 mm Hg] 136/ 82mm Hg (05/07/22 2:00 PM) 160/84mm Hg *H* (05/07/22 1:52 PM) Mode of Delivery (Oxygen) Room air (05/07/22 1:52 PM) Blood pressure sites Arm, right (05/07/22 2:00 PM) Arm, right (05/07/22 1:52 PM) Social History Social History Type Response Smoking Status Never smoker entered on: 09/24/16 Sex Patient Care team information Care Team Personnel Name: Grecia SEGUNDO, Talat March Position: [facility] Primary Care Physician Member Role: PCP Address: Address: [address] [place] [address]- Care Team Related Persons Name: ANNIE HASSAN Address: home [address] [place] [address] Name: LISHA LOVE Address: [address] [place] [address]
--- OUTSIDE RECORDS SUMMARY | 2023-02-26 11:21 | XMS_ITS | Continuity of Care Document ---
Author Name Unknown Organization [facility] Jim Hodges Mustapha lt Address [address] [place] [address]- Care Team Providers Care Upholstery Bundler Name Role Phone Grecia SEGUNDO, Talat March Primary Care Physician [place] [facility] [place]25[place]21 - 07/25/21 [facility] Adult [address] [place] [address]- Allergies, Adverse Reactions, Alerts Substance Reaction Severity [...] 13-valent vaccine 4 03/01/17 Given 1Result Comment: [facility]-[id number] 2Result Comment: [03/01/2017] [facility] 16409-092-87 3Result Comment: [08/23/2017] [facility] 61497-508-40 4Result Comment: [03/01/2017] [facility] [id number] Medications acetaminophen/butalbital/caffeine 325 mg-50 mg-40 mg oral capsule 1 capsule, By Mouth, Every 4 hours, PRN NEEDED FOR HEADACHE, # 180 capsule, 3 Refills, Acute 11/20/21 17:41:00 EDT, 11/20/20 17:41:00 EDT, [facility], 30, 1 capsule By MouthEvery [...] tablet, 1 Refills, Maintenance, 07/01/21 6:15:00 EDT, [facility], 175.26, cm, 03/25/21 7:10:00 EST, Height, 121.7, kg, 09/01/19 8:19:00EDT, Dry Weight Start Date: 07/01/21 Status: Ordered cranberry oral tablet 0 Refills, Maintenance, 09/24/16 10:41:52 Start Date: 09/24/16 Status: Ordered Flonase 50 mcg/inh nasal spray 1 sprays = 50 mcg, Nares, Both, Daily, # 16 Gm, 5 Refills, Maintenance, 01/15/20 14:58:00 EDT, Nasal [place], [facility]/pharmacy #[id number], 1 sprays Nares, Both Daily, [...] 11/20/20 17:39:00 EDT, Route to Pharmacy Electronically, [facility], Partial fill upon patient request if the prescription is... Start Date: 11/20/20 Status: Ordered Multivitamin Tablet 1 tablet, By Mouth, Daily, 0 Refills Start Date: 09/04/08 Stop Date: 10/04/08 Status: Ordered omeprazole 20 mg oral enteric coated capsule 1 capsule, By Mouth, Daily, # 90 capsule, 3 Refills, Maintenance, 11/20/20 17:40:00 EDT, [facility], 175.26, cm, 11/20/20 14:07:00 EDT, Height, 121.7, kg, 09/01/19 8:19:00 EDT,Dry Weight Start Date: 11/20/20 Status: Ordered PARoxetine 20 mg oral tablet 1, tablet, By Mouth, Daily, # 90 tablet, Refills 1, Route to Pharmacy Electronically, [facility], 175.26, cm, 03/25/21 [...] 11/20/21 17:41:00 EDT, 11/20/20 17:40:00 EDT, Tablet, [facility], Partial fill upon patient request if the prescription is for a schedule II opi... Start Date: 11/20/20 Stop Date: 11/20/21 Status: Ordered simvastatin 20 mg oral tablet 1, tablet, By Mouth, Daily at bedtime, # 90 tablet, Refills 3, Route to Pharmacy Electronically, [facility], 175.26, cm, 03/25/21 [...] capsule, 3 Refills, Maintenance, 09/03/20 16:49:00 EDT, [facility], 175[facility], cm, 12/04/19 14:32:00 EDT, [...]
--- OUTSIDE RECORDS SUMMARY | 2023-02-26 11:21 | XMS_ITS | Continuity of Care Document ---
Author Name Unknown Organization [facility] Address Unknown Care Team Providers Care Gastroenterology Teacher Name Role Phone Talat Paige MD Primary Care Physician [place] [facility] [id number] Date(s): 03/28/21 - 06/20/21 [facility] Attending Physician: Yovany Talley MD Admitting Physician: Yovany Talley MD Referring Physician: Talat Paige MD Allergies, [...] 13-valent vaccine 4 03/01/17 Given 1Result Comment: [facility]-[id number] 2Result Comment: [03/01/2017] [facility] [id number] 3Result Comment: [08/23/2017] [facility] 50211-229-00 4Result Comment: [03/01/2017] [facility] [id number] Medications acetaminophen/butalbital/caffeine 325 mg-50 mg-40 mg oral capsule 1 capsule, By Mouth, Every 4 hours, PRN NEEDED FOR HEADACHE, # 180 capsule, 3 Refills, Acute 11/20/21 17:41:00 EDT, 11/20/20 17:41:00 EDT, [facility], 30, 1 capsule By MouthEvery 4 [...] tablet, 1 Refills, Maintenance, 11/20/20 17:38:00 EDT, [facility], 175.26, cm, 11/20/20 14:07:00 EDT, Height, 121.7, kg, 09/01/19 8:19:00 EDT, Dry Weight Start Date: 11/20/20 Status: Ordered cranberry oral tablet 0 Refills, Maintenance, 09/24/16 10:41:52 Start Date: 09/24/16 Status: Ordered Flonase 50 mcg/inh nasal spray 1 sprays = 50 mcg, Nares, Both, Daily, # 16 Gm, 5 Refills, Maintenance, 01/15/20 14:58:00 EDT, Nasal [place], [facility]/pharmacy #[id number], 1 sprays Nares, Both Daily, [...] 11/20/20 17:39:00 EDT, Route to Pharmacy Electronically, [facility], Partial fill upon patient request if the prescription is... Start Date: 11/20/20 Status: Ordered Multivitamin Tablet 1 tablet, By Mouth, Daily, 0 Refills Start Date: 09/04/08 Stop Date: 10/04/08 Status: Ordered omeprazole 20 mg oral enteric coated capsule 1 capsule, By Mouth, Daily, # 90 capsule, 3 Refills, Maintenance, 11/20/20 17:40:00 EDT, [facility], 175.26, cm, 11/20/20 14:07:00 EDT, Height, 121.7, kg, 09/01/19 8:19:00 EDT,Dry Weight Start Date: 11/20/20 Status: Ordered PARoxetine 20 mg oral tablet 1, tablet, By Mouth, Daily, # 90 tablet, Refills 1, Route to Pharmacy Electronically, [facility], 175.26, cm, 11/20/20 14:07:00 [...] 11/20/21 17:41:00 EDT, 11/20/20 17:40:00 EDT, Tablet, [facility], Partial fill upon patient request if the prescription is for a schedule II opi... Start Date: 11/20/20 Stop Date: 11/20/21 Status: Ordered simvastatin 20 mg oral tablet 1, tablet, By Mouth, Daily at bedtime, # 90 tablet, Refills 3, Tot. Refills 0, Maintenance, 09/03/20 16:49:00 EDT, Route to Pharmacy Electronically, [facility], 175.26, cm, 12/04/19 14:32:00 EDT, [...]
--- OUTSIDE RECORDS SUMMARY | 2023-02-26 11:21 | XMS_ITS | Continuity of Care Document ---
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 Name Role Phone Grecia SEGUNDO, Talat March Primary Care Physician [phone] Encounter [facility] [place](s): 05/20/21 - 06/19/21 [facility] Adult [address] [place] [address]- Attending Physician: Vitor Asencio Admitting Physician: AdmVitor [...] 4 03/01/17 Given 1Result Comment: [facility]-[id number] 2Result Comment: [03/01/2017] [facility] [id number] 3Result Comment: [08/23/2017] [facility] [id number] 4Result Comment: [03/01/2017] [facility] [id number] Medications acetaminophen/butalbital/caffeine 325 mg-50 mg-40 mg oral capsule 1 capsule, By Mouth, Every 4 hours, PRN NEEDED FOR HEADACHE, # 180 capsule, 3 Refills, Acute 11/20/21 17:41:00 EDT, 11/20/20 17:41:00 EDT, [facility], 30, 1 capsule By [...] tablet, 1 Refills, Maintenance, 11/20/20 17:38:00 EDT, [facility], 175.26, cm, 11/20/20 14:07:00 EDT, Height, 121.7, kg, 09/01/19 8:19:00 EDT, Dry Weight Start Date: 11/20/20 Status: Ordered cranberry oral tablet 0 Refills, Maintenance, 09/24/16 10:41:52 Start Date: 09/24/16 Status: Ordered Flonase 50 mcg/inh nasal spray 1 sprays = 50 mcg, Nares, Both, Daily, # 16 Gm, 5 Refills, Maintenance, 01/15/20 14:58:00 EDT, Nasal [place], [facility]/pharmacy #[id number], 1 sprays Nares, Both Daily, [...] 11/20/20 17:39:00 EDT, Route to Pharmacy Electronically, [facility], Partial fill upon patient request if the prescription is... Start Date: 11/20/20 Status: Ordered Multivitamin Tablet 1 tablet, By Mouth, Daily, 0 Refills Start Date: 09/04/08 Stop Date: 10/04/08 Status: Ordered omeprazole 20 mg oral enteric coated capsule 1 capsule, By Mouth, Daily, # 90 capsule, 3 Refills, Maintenance, 11/20/20 17:40:00 EDT, [facility], 175.26, cm, 11/20/20 14:07:00 EDT, Height, 121.7, kg, 09/01/19 8:19:00 EDT,Dry Weight Start Date: 11/20/20 Status: Ordered PARoxetine 20 mg oral tablet 1, tablet, By Mouth, Daily, # 90 tablet, Refills 1, Route to Pharmacy Electronically, [facility], 175.26, cm, 11/20/20 14:07:00 [...] 11/20/21 17:41:00 EDT, 11/20/20 17:40:00 EDT, Tablet, [facility], Partial fill upon patient [...]
--- OUTSIDE RECORDS SUMMARY | 2023-02-26 11:21 | XMS_ITS | Continuity of Care Document ---
Author Name Unknown Organization [facility] Address Unknown Care Team Providers Care Production Mechanic Tin Cans Name Role Phone Grecia SEGUNDO, Talat March Primary Care Physician Encounter [facility] [place] [facility]CT R [id number] Date(s): 04/14/21 - 05/14/21 [facility] Attending Physician: Vitor Asencio Admitting Physician: Vitor Asencio Referring Physician: AdmtrVitor Allergies, Adverse Reactions, Alerts Substance Reaction Severity Status ciprofloxacin weakness Active erythromycin [D]Nausea Active Tagamet [D]Nausea Active Seafood [D]Headache [D]Nausea Active Levaquin spasms Active cimetidine WEAKNESS Active Immunizations Given and [...] 13-valent vaccine 4 03/01/17 Given 1Result Comment: [facility]-[id number] 2Result Comment: [03/01/2017] [facility] [id number] 3Result Comment: [08/23/2017] [facility] [id number] 4Result Comment: [03/01/2017] [facility] [id number] Medications acetaminophen/butalbital/caffeine 325 mg-50 mg-40 mg oral capsule 1 capsule, By Mouth, Every 4 hours, PRN NEEDED FOR HEADACHE, # 180 capsule, 3 Refills, Acute 11/20/21 17:41:00 EDT, 11/20/20 17:41:00 EDT, [facility], 30, 1 capsule By MouthEvery 4 [...] tablet, 1 Refills, Maintenance, 11/20/20 17:38:00 EDT, [facility], 175.26, cm, 11/20/20 14:07:00 EDT, Height, 121.7, kg, 09/01/19 8:19:00 EDT, Dry Weight Start Date: 11/20/20 Status: Ordered cranberry oral tablet 0 Refills, Maintenance, 09/24/16 10:41:52 Start Date: 09/24/16 Status: Ordered Flonase 50 mcg/inh nasal spray 1 sprays = 50 mcg, Nares, Both, Daily, # 16 Gm, 5 Refills, Maintenance, 01/15/20 14:58:00 EDT, Nasal [place], [facility]/pharmacy #[id number], 1 sprays Nares, Both [...] 17:39:00 EDT, Route to Pharmacy Electronically, [facility], Partial fill upon patient request if the prescription is... Start Date: 11/20/20 Status: Ordered Multivitamin Tablet 1 tablet, By Mouth, Daily, 0 Refills Start Date: 09/04/08 Stop Date: 10/04/08 Status: Ordered omeprazole 20 mg oral enteric coated capsule 1 capsule, By Mouth, Daily, # 90 capsule, 3 Refills, Maintenance, 11/20/20 17:40:00 EDT, [facility], 175.26, cm, 11/20/20 14:07:00 EDT, Height, 121.7, kg, 09/01/19 8:19:00 EDT,Dry Weight Start Date: 11/20/20 Status: Ordered PARoxetine 20 mg oral tablet 1, tablet, By Mouth, Daily, # 90 tablet, Refills 1, Route to Pharmacy Electronically, [facility], 175.26, cm, 11/20/20 [...] 17:41:00 EDT, 11/20/20 17:40:00 EDT, Tablet, [facility], Partial fill upon patient request if the prescription is for a schedule II opi... Start Date: 11/20/20 Stop Date: 11/20/21 Status: Ordered simvastatin 20 mg oral tablet 1, tablet, By Mouth, Daily at bedtime, # 90 tablet, Refills 3, Tot. Refills 0, Maintenance, 09/03/20 16:49:00 EDT, Route to Pharmacy Electronically, [facility], 175.26, cm, 12/04/19 14:32:00 [...] capsule, 3 Refills, Maintenance, 09/03/20 16:49:00 EDT, [facility], 175.26, cm, 12/04/19 14:32:00 EDT, [...]
--- OUTSIDE RECORDS SUMMARY | 2023-02-26 11:21 | XMS_ITS | Continuity of Care Document ---
Author Name Unknown Organization [facility] Address [address] [place], [place] [address]surendra caryl, [address] [place] [address]- Care Team Providers Care Maintenance Mechanic Supervisor Name Role Phone Grecia SEGUNDO, Talat March Primary Care Physician Encounter [facility] Date(s): 10/31/19 - 11/30/19 [facility] [address] [place] [address], [address] [place] [address]- [facility] Allergies, Adverse Reactions, Alerts Substance [...] vaccine 4 03/01/17 Given 1Result Comment: [facility]-[id number] 2Result Comment: [03/01/2017] [facility] [id number] 3Result Comment: [08/23/2017] [facility] [id number] 4Result Comment: [03/01/2017] [facility] [id number] Medications acetaminophen/butalbital/caffeine 325 mg-50 mg-40 mg oral capsule 1 capsule, By Mouth, Every 4 hours, PRN for headache, # 180 capsule, 1 Refills, Maintenance, 10/11/19 5:21:00 EDT, Capsule, [facility], 1 capsule By Mouth [...] tablet, 1 Refills, Maintenance, 10/05/19 12:06:00 EDT, [facility], 175.26, cm, 10/05/19 10:27:00 EDT, Height, 121.7, kg, 09/01/19 8:19:00 EDT, Dry Weight Start Date: 10/05/19 Status: Ordered cranberry oral tablet 0 Refills, Maintenance, 09/24/16 10:41:52 Start Date: 09/24/16 Status: Ordered Dilaudid 2 mg oral tablet 1 tablet = 2 mg, By Mouth, Every 4 hours, PRN for pain, # 18 tablet, 0 Refills, Maintenance, 09/01/19 10:16:00 EDT, Tablet, [facility], Partial fill upon patient request, 175.26, cm,09/01/19 8:19:00 EDT, Height, 121.7, kg, 09/01/19 8... Start Date: 09/01/19 Status: Ordered Flonase 50 mcg/inh nasal spray 1 sprays = 50 mcg, Nares, Both, Daily, # 16 Gm, 5 Refills, Maintenance, 11/08/18 11:12:34 EDT, Nasal [place], 1 sprays Nares, Both Daily Start Date: 11/08/18 Status: Ordered Hyoscyamine 0 Refills, Maintenance, 09/24/16 10:41:29 Start Date: 09/24/16 Status: Ordered Multivitamin Tablet 1 tablet, By Mouth, Daily, 0 Refills Start Date: 09/04/08 Stop Date: 10/04/08 Status: Ordered omeprazole 20 mg oral enteric coated capsule 1 capsule, By Mouth, Daily, # 90 capsule, 3 Refills, Maintenance, 10/05/19 12:07:00 EDT, [facility], 175.26, cm, 10/05/19 10:27:00 EDT, Height, 121.7, kg, 09/01/19 8:19:00 EDT,Dry Weight Start Date: 10/05/19 Status: Ordered PARoxetine 20 mg oral tablet 1, tablet, By Mouth, Daily, # 90 tablet, Refills 3, Tot. Refills 3, Maintenance, 06/23/19 11:03:00 EDT, Route to Pharmacy Electronically, [facility], 162.56, cm, 11/08/18 10:49:00 [...] 10/05/19 12:07:00 EDT, Route to Pharmacy Electronically, [facility], 175.26, cm, 10/05/19 10:27:00 [...] Refills, Maintenance, 10/05/19 12:07:00 EDT, CR Capsule, [facility], 175.26, cm, 10/05/19 10:27:00 EDT, Height, 121.7, kg, 09/01/19 8:19:00 EDT, Dry Weight Start Date: 10/05/19 Status: Ordered Zofran 4 mg oral tablet 1 tablet = 4 mg, By Mouth, Every 8 hours, PRN Nausea & Vomiting, # 10 tablet, 0 Refills, Maintenance, 09/01/19 10:18:00 EDT, Tablet, [facility], 175.26, cm, 09/01/19 8:19:00 EDT,Height, [...]
--- OUTSIDE RECORDS SUMMARY | 2023-02-26 11:21 | XMS_ITS | Continuity of Care Document ---
Author Name Unknown Organization [facility] Carroll Mustapha lt Address [address] [place] [address]- Care Team Providers Care Supplier Manager Name Role Phone Grecia SEGUNDO, Talat March Primary Care Physician [phone] Encounter [facility] Date(s): 06/06/21 - 07/06/21 [facility] Adult [address] [place] [address]- Allergies, Adverse Reactions, Alerts Substance Reaction Severity [...] 03/01/17 Given 1Result Comment: [facility]-[id number] 2Result Comment: [03/01/2017] [facility] [id number] 3Result Comment: [08/23/2017] [facility] [id number] 4Result Comment: [03/01/2017] [facility] [id number] Medications acetaminophen/butalbital/caffeine 325 mg-50 mg-40 mg oral capsule 1 capsule, By Mouth, Every 4 hours, PRN NEEDED FOR HEADACHE, # 180 capsule, 3 Refills, Acute 11/20/21 17:41:00 EDT, 11/20/20 17:41:00 EDT, [facility], 30, 1 capsule By MouthEvery 4 [...] tablet, 1 Refills, Maintenance, 07/01/21 6:15:00 EDT, [facility], 175.26, cm, 03/25/21 7:10:00 EST, Height, 121.7, kg, 09/01/19 8:19:00EDT, Dry Weight Start Date: 07/01/21 Status: Ordered cranberry oral tablet 0 Refills, Maintenance, 09/24/16 10:41:52 Start Date: 09/24/16 Status: Ordered Flonase 50 mcg/inh nasal spray 1 sprays = 50 mcg, Nares, Both, Daily, # 16 Gm, 5 Refills, Maintenance, 01/15/20 14:58:00 EDT, Nasal [place], [facility]/pharmacy #[id number], 1 sprays Nares, Both Daily, [...] capsule, 3 Refills, Maintenance, 11/20/20 17:40:00 EDT, [facility], 175.26, cm, 11/20/20 14:07:00 EDT, Height, 121.7, kg, 09/01/19 8:19:00 EDT,Dry Weight Start Date: 11/20/20 Status: Ordered PARoxetine 20 mg oral tablet 1, tablet, By Mouth, Daily, # 90 tablet, Refills 1, Route to Pharmacy Electronically, [facility], 175.26, cm, 03/25/21 [...] 11/20/21 17:41:00 EDT, 11/20/20 17:40:00 EDT, Tablet, [facility], Partial fill upon patient request if the prescription is for a schedule II opi... Start Date: 11/20/20 Stop Date: 11/20/21 Status: Ordered simvastatin 20 mg oral tablet 1, tablet, By Mouth, Daily at bedtime, # 90 tablet, Refills 3, Route to Pharmacy Electronically, [facility], 175.26, cm, 03/25/21 [...] capsule, 3 Refills, Maintenance, 09/03/20 16:49:00 EDT, [facility], 175.26, cm, 12/04/19 14:32:00 EDT, [...]
--- OUTSIDE RECORDS SUMMARY | 2023-02-26 11:21 | XMS_ITS | Continuity of Care Document ---
Author Name Unknown Organization [facility] Carroll Mustapha lt Address [address] [place] [address]- Care Team Providers Care Range Conservationist Name Role Phone Talat Paige MD Primary Care Physician [phone] Encounter [facility] Date(s): 07/03/19 - 07/10/19 [facility] Adult [address] [place] [address]- [facility] Attending Physician: Talat Paige MD Allergies, Adverse [...] Given 1Result Comment: [facility]-[id number] 2Result Comment: [03/01/2017] [facility] [id number] 3Result Comment: [08/23/2017] [facility] [id number] 4Result Comment: [03/01/2017] [facility] [id number] Medications acetaminophen/butalbital/caffeine 325 mg-50 mg-40 mg oral [...] tablet, 1 Refills, Maintenance, 05/09/19 12:56:00 EST, [facility], 162.56, cm, 11/08/18 10:49:00 EDT, Height Start Date: 05/09/19 Status: Ordered cranberry oral tablet 0 Refills, Maintenance, 09/24/16 10:41:52 Start Date: 09/24/16 Status: Ordered Diflucan 150 mg oral tablet 1 tablet = 150 mg, By Mouth, Once, may repeat x 1, # 2 tablet, 0 Refills, Soft Stop, 06/16/19 13:07:00 EDT, [facility]/pharmacy #[id number], 162.56, cm, 11/08/18 10:49:00 EDT, Height Start Date: 06/16/19 Status: Ordered Flonase 50 mcg/inh nasal spray 1 sprays = 50 mcg, Nares, Both, Daily, # 16 Gm, 5 Refills, Maintenance, 11/08/18 11:12:34 EDT, Nasal [place], 1 sprays Nares, Both Daily Start Date: [...] to Pharmacy Electronically, [facility], 162.56, cm, 11/08/18 10:49:00 EDT, Height Start Date: 06/23/19 Status: Ordered Probiotic Formula 1 capsule, By Mouth, Daily, 0 Refills, Maintenance, 09/24/16 10:41:57 Start Date: 09/24/16 Status: Ordered simvastatin 20 mg oral tablet 20 mg, 1, tablet, By Mouth, Daily at bedtime, # 90 tablet, Refills 3, Tot. Refills 3, Maintenance, 11/08/18 11:11:57 EDT, Route to Pharmacy Electronically, [id number], [facility] Start Date: 11/08/18 Status: Ordered triamcinolone [...]
--- OUTSIDE RECORDS SUMMARY | 2023-02-26 11:21 | XMS_ITS | Continuity of Care Document ---
Author Name Unknown Organization [facility] Jim Hodges Mustapha lt Address [address] [place] [address]- Care Team Providers Care Sand Shoveler Name Role Phone Grecia SEGUNDO, Talat Macrh Primary Care Physician Encounter [facility] Date(s): 03/25/21 - 04/01/21 [facility] Adult [address] [place] [address]- Attending Physician: Talat Paige MD Referring Physician: Dev RUANO, Liseth Espinal Allergies, Adverse Reactions, Alerts Substance Reaction Severity [...] 13-valent vaccine 4 03/01/17 Given 1Result Comment: [facility]-[id number] 2Result Comment: [03/01/2017] [facility] [id number] 3Result Comment: [08/23/2017] [facility] [id number] 4Result Comment: [03/01/2017] [facility] [id number] Medications acetaminophen/butalbital/caffeine 325 mg-50 mg-40 mg oral capsule 1 capsule, By Mouth, Every 4 hours, PRN NEEDED FOR HEADACHE, # 180 capsule, 3 Refills, Acute 11/20/21 17:41:00 EDT, 11/20/20 17:41:00 EDT, [facility], 30, 1 capsule By MouthEvery [...] tablet, 1 Refills, Maintenance, 11/20/20 17:38:00 EDT, [facility], 175.26, cm, 11/20/20 14:07:00 EDT, Height, 121.7, kg, 09/01/19 8:19:00 EDT, Dry Weight Start Date: 11/20/20 Status: Ordered cranberry oral tablet 0 Refills, Maintenance, 09/24/16 10:41:52 Start Date: 09/24/16 Status: Ordered Flonase 50 mcg/inh nasal spray 1 sprays = 50 mcg, Nares, Both, Daily, # 16 Gm, 5 Refills, Maintenance, 01/15/20 14:58:00 EDT, Nasal [place], [facility]/pharmacy #[id number], 1 sprays Nares, Both Daily, [...] 17:39:00 EDT, Route to Pharmacy Electronically, [facility], Partial fill upon patient request if the prescription is... Start Date: 11/20/20 Status: Ordered Multivitamin Tablet 1 tablet, By Mouth, Daily, 0 Refills Start Date: 09/04/08 Stop Date: 10/04/08 Status: Ordered omeprazole 20 mg oral enteric coated capsule 1 capsule, By Mouth, Daily, # 90 capsule, 3 Refills, Maintenance, 11/20/20 17:40:00 EDT, [facility], 175.26, cm, 11/20/20 14:07:00 EDT, Height, 121.7, kg, 09/01/19 8:19:00 EDT,Dry Weight Start Date: 11/20/20 Status: Ordered PARoxetine 20 mg oral tablet 1, tablet, By Mouth, Daily, # 90 tablet, Refills 1, Route to Pharmacy Electronically, [facility], 175.26, cm, 11/20/20 14:07:00 [...] 17:41:00 EDT, 11/20/20 17:40:00 EDT, Tablet, [facility], Partial fill upon patient request [...] capsule, 3 Refills, Maintenance, 09/03/20 16:49:00 EDT, [facility], 175.26, cm, 12/04/19 14:32:00 EDT, [...] oldest [Reference Range]: 1 Height 175.26 cm (03/25/21 7:10 AM) Social History Social History Type Response Smoking Status Never smoker entered on: 09/24/16 Sex
--- OUTSIDE RECORDS SUMMARY | 2023-02-26 11:21 | XMS_ITS | Continuity of Care Document ---
Author Name Unknown Organization [facility] Address [address] [place] [address]- Care Team Providers Care Commercial Airline Pilot Name Role Phone Grecia SEGUNDO, Talat March Primary Care Physician Encounter [facility] Date(s): 07/05/19 - 09/10/19 [facility] [address] [place] [address]- [facility] Attending Physician: Ivy Marques MD [...] 03/01/17 Given 1Result Comment: [facility]-[id number] 2Result Comment: [03/01/2017] [facility] [id number] 3Result Comment: [08/23/2017] [facility] [id number] 4Result Comment: [03/01/2017] [facility] [id number] Medications acetaminophen/butalbital/caffeine 325 mg-50 mg-40 mg oral capsule 1 capsule, By Mouth, Every 4 hours, PRN for headache, # 90 capsule, 1 Refills, Maintenance, 07/03/19 14:23:00 EDT, Capsule, [facility], 1 capsule By Mouth [...] tablet, 1 Refills, Maintenance, 05/09/19 12:56:00 EST, [facility], 162.56, cm, 11/08/18 10:49:00 EDT, Height Start Date: 05/09/19 Status: Ordered cranberry oral tablet 0 Refills, Maintenance, 09/24/16 10:41:52 Start Date: 09/24/16 Status: Ordered Dilaudid 2 mg oral tablet 1 tablet = 2 mg, By Mouth, Every 4 hours, PRN for pain, # 18 tablet, 0 Refills, Maintenance, 09/01/19 10:16:00 EDT, Tablet, [facility], Partial fill upon patient request, 175.26, cm,09/01/19 8:19:00 EDT, Height, 121.7, kg, 09/01/19 8... Start Date: 09/01/19 Status: Ordered Flonase 50 mcg/inh nasal spray 1 sprays = 50 mcg, Nares, Both, Daily, # 16 Gm, 5 Refills, Maintenance, 11/08/18 11:12:34 EDT, Nasal [place], 1 sprays Nares, Both Daily Start Date: 11/08/18 Status: Ordered Hyoscyamine 0 Refills, Maintenance, 09/24/16 10:41:29 Start Date: 09/24/16 Status: Ordered Multivitamin Tablet 1 tablet, By Mouth, Daily, 0 Refills Start Date: 09/04/08 Stop Date: 10/04/08 Status: Ordered omeprazole 20 mg oral enteric coated capsule 1 capsule, By Mouth, Daily, # 90 capsule, 3 Refills, Maintenance, 08/16/19 7:22:00 EDT, [facility], 162.56, cm, 11/08/18 10:49:00 EDT, Height Start Date: 08/16/19 Status: Ordered PARoxetine 20 mg oral tablet 1, tablet, By Mouth, Daily, # 90 tablet, Refills 3, Tot. Refills 3, Maintenance, 06/23/19 11:03:00 EDT, Route to Pharmacy Electronically, [facility], 162.56, cm, 11/08/18 10:49:00 [...] 11/08/18 11:11:57 EDT, Route to Pharmacy Electronically, [id number], [facility] Start Date: 11/08/18 Status: [...] 0 Refills, Maintenance, 09/01/19 10:18:00 EDT, Tablet, [facility], 175.26, cm, 09/01/19 8:19:00 [...]
--- OUTSIDE RECORDS SUMMARY | 2023-02-26 11:21 | XMS_ITS | Continuity of Care Document ---
Author Name Unknown Organization [facility] Address [address] [place] [address] [address]aryl, [address] [place] [address]- Care Team Providers Care Insurance Commissioner Name Role Phone Grecia SEGUNDO, Talat March Primary Care Physician [phone] Encounter [facility] Date(s): 12/05/19 - 01/04/20 [facility] [address] [place] [address], [address] [place] [address]- [facility] Attending Physician: Vitor Asencio Admitting Physician: Vitor [...] 13-valent vaccine 4 03/01/17 Given 1Result Comment: [facility]-[id number] 2Result Comment: [03/01/2017] [facility] [id number] 3Result Comment: [08/23/2017] [facility] [id number] 4Result Comment: [03/01/2017] [facility] [id number] Medications acetaminophen/butalbital/caffeine 325 mg-50 mg-40 mg oral [...] tablet, 1 Refills, Maintenance, 10/05/19 12:06:00 EDT, [facility], 175.26, cm, 10/05/19 10:27:00 EDT, Height, 121.7, kg, 09/01/19 8:19:00 EDT, Dry Weight Start Date: 10/05/19 Status: Ordered cranberry oral tablet 0 Refills, Maintenance, 09/24/16 10:41:52 Start Date: 09/24/16 Status: Ordered Dilaudid 2 mg oral tablet 1 tablet = 2 mg, By Mouth, Every 4 hours, PRN for pain, # 18 tablet, 0 Refills, Maintenance, 09/01/19 10:16:00 EDT, Tablet, [facility], Partial fill upon patient [...] Stop Date: 10/04/08 Status: Ordered nystatin topical 914223 u/gm powder 1 application, Topically, 2 times a day, Apply to affected areas twice a day., # 60 Gm, 3 Refills, Acute 02/07/20 0:00:00 EST, 01/03/20 11:48:00 EDT, Powder, [facility]/pharmacy #[id number], 1 application Topically 2 times a [...] 0 Refills, Maintenance, 09/01/19 10:18:00 EDT, Tablet, [facility], 175.26, cm, 09/01/19 8:19:00 EDT,Height, [...]
--- OUTSIDE RECORDS SUMMARY | 2023-02-26 11:21 | XMS_ITS | Continuity of Care Document ---
Author Name Unknown Organization [facility] Carroll Mustapha lt Address [address] [place] [address]- Care Team Providers Care Non Profit Director Name Role Phone Talat Paige MD Primary Care Physician [phone] Encounter [facility] Date(s): 06/16/19 - 06/23/19 [facility] Adult [address] [place] [address]- [facility] Encounter Diagnosis Acute sinus infection(Discharge Diagnosis) - 06/16/19 Attending Physician: Talat Paige MD Allergies, Adverse [...] Given 1Result Comment: [facility]-[id number] 2Result Comment: [03/01/2017] [facility] [id number] 3Result Comment: [08/23/2017] [facility] 57175-051-98 4Result Comment: [03/01/2017] [facility] [id number] Medications acetaminophen/butalbital/caffeine 325 mg-50 mg-40 mg oral capsule 1 capsule, By Mouth, Every 4 hours, PRN for headache, # 90 capsule, 1 Refills, Maintenance, 11/08/18 11:11:25 EDT, Capsule, 1 capsule By Mouth Every 4 hours,PRN:for headache Start Date: 11/08/18 Status: Ordered aspirin 81 mg oral tablet 1 tablet = 81 mg, By Mouth, Daily, 0 Refills, Maintenance, 09/24/16 10:37:48 Start Date: 09/24/16 Status: Ordered BiPAP Equipment BiPAP 14/10, Maintenance, nasal mask [facility], 05/16/18 15:13:22 EST, Compound Start Date: 05/16/18 Status: Ordered Calcium 600 +D By Mouth, 0 Refills Start Date: 09/04/08 Stop Date: 10/04/08 Status: Ordered clonazePAM 1 mg oral tablet 1 tablet, By Mouth, 2 times a day, # 180 tablet, 1 Refills, Maintenance, 05/09/19 12:56:00 EST, [facility], 162.56, cm, 11/08/18 10:49:00 EDT, Height Start Date: 05/09/19 Status: Ordered cranberry oral tablet 0 Refills, Maintenance, 09/24/16 10:41:52 Start Date: 09/24/16 Status: Ordered darifenacin 7.5 mg oral tablet, extended release 1 tablet = 7.5 mg, By Mouth, Daily, # 30 tablet, 0 Refills, Maintenance, 11/08/18 10:52:43 EDT, ER Tablet Start Date: 11/08/18 Status: Ordered Diflucan 150 mg oral tablet 1 tablet = 150 mg, By Mouth, Once, may repeat x 1, # 2 tablet, 0 Refills, Soft Stop, 06/16/19 13:07:00 [id number] 162.[facility], cm, 11/08/18 10:49:00 EDT, Height Start Date: 06/16/19 Status: Ordered Flonase 50 mcg/inh nasal spray 1 sprays = 50 mcg, Nares, Both, Daily, # 16 Gm, 5 Refills, Maintenance, 11/08/18 11:12:34 EDT, Nasal [place], 1 sprays Nares, Both Daily Start Date: 11/08/18 Status: Ordered Hyoscyamine 0 Refills, Maintenance, 09/24/16 10:41:29 Start Date: 09/24/16 Status: Ordered ibuprofen 800 mg oral tablet 1 tablet = 800 mg, By Mouth, 3 times a day, 0 Refills Start Date: 09/04/08 Stop Date: 09/18/08 Status: Ordered Multivitamin Tablet 1 tablet, By Mouth, Daily, 0 Refills Start Date: 09/04/08 Stop Date: 10/04/08 Status: Ordered omeprazole 20 mg oral enteric coated capsule 1 capsule = 20 mg, By Mouth, Daily, # 90 capsule, 3 Refills, Maintenance, 11/08/18 11:12:14 EDT, ECCapsule Start Date: 11/08/18 Status: Ordered PARoxetine 20 mg oral tablet [...] 11/08/18 11:11:57 EDT, Route to Pharmacy Electronically, [id number], [facility] Start Date: 11/08/18 Status: Ordered triamcinolone [...] symptom or sign(Confirmed) Active Venous stasis(Confirmed) Active Diagnosis Diagnosis Type Effective Dates Health Status Cl inical Service Informant Acute sinus infection Discharge Diagnosis 06/16/19 Social History Social History Type Response Smoking Status Never smoker entered on: 09/24/16 Sex
--- OUTSIDE RECORDS SUMMARY | 2023-02-26 11:21 | XMS_ITS | Continuity of Care Document ---
Author Name Unknown Organization [facility] Carroll Mustapha lt Address [address] [place] [address]- Care Team Providers Care Rf Technician Name Role Phone Talat Paige MD Primary Care Physician [place] [facility] Date(s): 02/19/21 - 06/19/21 [facility] Adult [address] [place] [address]- Attending Physician: Talat Paige MD Allergies, Adverse [...] 13-valent vaccine 4 03/01/17 Given 1Result Comment: [facility]-[id number] 2Result Comment: [03/01/2017] [facility] [id number] 3Result Comment: [08/23/2017] [facility] [id number] 4Result Comment: [03/01/2017] [facility] [id number] Medications acetaminophen/butalbital/caffeine 325 mg-50 mg-40 mg oral capsule 1 capsule, By Mouth, Every 4 hours, PRN NEEDED FOR HEADACHE, # 180 capsule, 3 Refills, Acute 11/20/21 17:41:00 EDT, 11/20/20 17:41:00 EDT, [facility], 30, 1 capsule By [...] tablet, 1 Refills, Maintenance, 11/20/20 17:38:00 EDT, [facility], 175.26, cm, 11/20/20 14:07:00 EDT, Height, 121.7, kg, 09/01/19 8:19:00 EDT, Dry Weight Start Date: 11/20/20 Status: Ordered cranberry oral tablet 0 Refills, Maintenance, 09/24/16 10:41:52 Start Date: 09/24/16 Status: Ordered Flonase 50 mcg/inh nasal spray 1 sprays = 50 mcg, Nares, Both, Daily, # 16 Gm, 5 Refills, Maintenance, 01/15/20 14:58:00 EDT, Nasal [place], [facility]/pharmacy #[id number], 1 sprays Nares, Both [...] 11/20/20 17:39:00 EDT, Route to Pharmacy Electronically, [facility], Partial fill upon patient request if the prescription is... Start Date: 11/20/20 Status: Ordered Multivitamin Tablet 1 tablet, By Mouth, Daily, 0 Refills Start Date: 09/04/08 Stop Date: 10/04/08 Status: Ordered omeprazole 20 mg oral enteric coated capsule 1 capsule, By Mouth, Daily, # 90 capsule, 3 Refills, Maintenance, 11/20/20 17:40:00 EDT, [facility], 175.26, cm, 11/20/20 14:07:00 EDT, Height, 121.7, kg, 09/01/19 8:19:00 EDT,Dry Weight Start Date: 11/20/20 Status: Ordered PARoxetine 20 mg oral tablet 1, tablet, By Mouth, Daily, # 90 tablet, Refills 1, Route to Pharmacy Electronically, [facility], 175.26, cm, 11/20/20 14:07:00 [...] 11/20/21 17:41:00 EDT, 11/20/20 17:40:00 EDT, Tablet, [facility], Partial fill upon patient [...]
--- OUTSIDE RECORDS SUMMARY | 2023-02-26 11:21 | XMS_ITS | Continuity of Care Document ---
Author Name Unknown Organization [facility] [place] Mustapha lt Address [address] [place] [address]- Care Team Providers Care Clinical Team Manager Name Role Phone Talat Paige MD Primary Care Physician [phone] Encounter [facility] Date(s): 10/05/19 - 10/12/19 [facility] Adult [address] [place] [address]- [facility] Attending Physician: Talat Paige MD Allergies, Adverse [...] vaccine 4 03/01/17 Given 1Result Comment: [facility]-[id number] 2Result Comment: [03/01/2017] [facility] [id number] 3Result Comment: [08/23/2017] [facility] [id number] 4Result Comment: [03/01/2017] [facility] [id number] Medications acetaminophen/butalbital/caffeine 325 mg-50 mg-40 mg oral capsule 1 capsule, By Mouth, Every 4 hours, PRN for headache, # 180 capsule, 1 Refills, Maintenance, 10/11/19 5:21:00 EDT, Capsule, [facility], 1 capsule By Mouth [...] tablet, 1 Refills, Maintenance, 10/05/19 12:06:00 EDT, [facility], 175.26, cm, 10/05/19 10:27:00 [...] Instructions Replace Required Details,Route to Pharmacy Electronically, [facility]/pharmacy #[id number]... Start Date: 10/05/19 Stop Date: 11/05/19 Status: Ordered Dilaudid 2 mg oral tablet 1 tablet = 2 mg, By Mouth, Every 4 hours, PRN for pain, # 18 tablet, 0 Refills, Maintenance, 09/01/19 10:16:00 EDT, Tablet, [facility], Partial fill upon patient request, 175.26, cm,09/01/19 8:19:00 EDT, Height, 121.7, kg, 09/01/19 8... Start Date: 09/01/19 Status: Ordered Flonase 50 mcg/inh nasal spray 1 sprays = 50 mcg, Nares, Both, Daily, # 16 Gm, 5 Refills, Maintenance, 11/08/18 11:12:34 EDT, Nasal [place], 1 sprays Nares, Both Daily Start Date: 11/08/18 Status: Ordered Hyoscyamine 0 Refills, Maintenance, 09/24/16 10:41:29 Start Date: 09/24/16 Status: Ordered Multivitamin Tablet 1 tablet, By Mouth, Daily, 0 Refills Start Date: 09/04/08 Stop Date: 10/04/08 Status: Ordered omeprazole 20 mg oral enteric coated capsule 1 capsule, By Mouth, Daily, # 90 capsule, 3 Refills, Maintenance, 10/05/19 12:07:00 EDT, [facility], 175.26, cm, 10/05/19 10:27:00 EDT, Height, 121.7, kg, 09/01/19 8:19:00 EDT,Dry Weight Start Date: 10/05/19 Status: Ordered PARoxetine 20 mg oral tablet 1, tablet, By Mouth, Daily, # 90 tablet, Refills 3, Tot. Refills 3, Maintenance, 06/23/19 11:03:00 EDT, Route to Pharmacy Electronically, [facility], 162.56, cm, 11/08/18 10:49:00 [...] to Pharmacy Electronically, [facility], 175.26, cm, 10/05/19 10:27:00 [...] EDT, CR Capsule, [facility], 175.26, cm, 10/05/19 10:27:00 EDT, Height, 121.7, kg, 09/01/19 8:19:00 EDT, Dry Weight Start Date: 10/05/19 Status: Ordered Zofran 4 mg oral tablet 1 tablet = 4 mg, By Mouth, Every 8 hours, PRN Nausea & Vomiting, # 10 tablet, 0 Refills, Maintenance, 09/01/19 10:18:00 EDT, Tablet, [facility], 175.26, cm, 09/01/19 8:19:00 [...] oldest [Reference Range]: 1 Height 175.26 cm (10/05/19 10:27 AM) Weight 123.2 kg (10/05/19 10:27 AM) Oxygen Saturation [94-100 %] 96 % (10/05/19 10:27 AM) Pulse Rate [55-90 bpm] 90 bpm (10/05/19 10:27 AM) Body Mass Index [18.5-24.99] 40.11 *>HHI* (10/05/19 10:27 AM) Blood Pressure [90-138/55-84 mm Hg] 134/ 70mm Hg (10/05/19 10:27 AM) Respiratory Rate [16-30 br/min] 18 br/mi n (10/05/19 10:27 AM) Temperature [96.8-100.4 DegF] 97.9 DegF (10/05/19 10:27 AM) Mode of Delivery (Oxygen) Room air (10/05/19 10:27 AM) Blood pressure sites Arm, right (10/05/19 10:27 AM) Temperature Route Oral (10/05/19 10:27 AM) Weight Obtained Via Standing scale (10/05/19 10:27 AM) Social History Social History Type Response Smoking Status Never smoker entered on: 09/24/16 Sex
--- OUTSIDE RECORDS SUMMARY | 2023-02-26 11:21 | XMS_ITS | Continuity of Care Document ---
Author Name Unknown Organization [facility] [place] lt Address [address] [place] [address]- Care Team Providers Care Street Worker Name Role Phone Talat Paige MD Primary Care Physician Encounter [facility] Date(s): 06/26/19 - 08/02/19 [facility] Adult [address] [place] [address]- [facility] Attending Physician: Talat Paige MD Allergies, Adverse [...] 03/01/17 Given 1Result Comment: [facility]-[id number] 2Result Comment: [03/01/2017] [facility] [id number] 3Result Comment: [08/23/2017] [facility] [id number] 4Result Comment: [03/01/2017] [facility] [id number] Medications acetaminophen/butalbital/caffeine 325 mg-50 mg-40 mg oral [...] tablet, 1 Refills, Maintenance, 05/09/19 12:56:00 EST, [facility], 162.56, cm, 11/08/18 10:49:00 EDT, Height Start Date: 05/09/19 Status: Ordered cranberry oral tablet 0 Refills, Maintenance, 09/24/16 10:41:52 Start Date: 09/24/16 Status: Ordered Diflucan 150 mg oral tablet 1 tablet = 150 mg, By Mouth, Once, may repeat x 1, # 2 tablet, 0 Refills, Soft Stop, 06/16/19 13:07:00 EDT, [facility]/pharmacy #[id number], 162.56, cm, 11/08/18 10:49:00 EDT, Height Start Date: 06/16/19 Status: Ordered Flonase 50 mcg/inh nasal spray 1 sprays = 50 mcg, Nares, Both, Daily, # 16 Gm, 5 Refills, Maintenance, 11/08/18 11:12:34 EDT, Nasal [place], 1 sprays Nares, Both Daily Start Date: [...] 11:03:00 EDT, Route to Pharmacy Electronically, [facility], 162.56, cm, 11/08/18 10:49:00 EDT, Height Start Date: 06/23/19 Status: Ordered Probiotic Formula 1 capsule, By Mouth, Daily, 0 Refills, Maintenance, 09/24/16 10:41:57 Start Date: 09/24/16 Status: Ordered simvastatin 20 mg oral tablet 20 mg, 1, tablet, By Mouth, Daily at bedtime, # 90 tablet, Refills 3, Tot. Refills 3, Maintenance, 11/08/18 11:11:57 EDT, Route to Pharmacy Electronically, [id number], [facility] Start Date: 11/08/18 Status: [...]
--- OUTSIDE RECORDS SUMMARY | 2023-02-26 11:22 | XMS_ITS | Continuity of Care Document ---
Author Name Unknown Organization [facility] [place] lt Address [address] [place] [address]- Care Team Providers Care Glass Etcher Helper Name Role Phone Grecia SEGUNDO, Talat March Primary Care Physician [place] [facility] Date(s): 02/02/22 - 03/04/22 [facility] Adult [address] [place] [address]- Allergies, Adverse Reactions, Alerts Substance Reaction Severity Status ciprofloxacin weakness Active erythromycin [D]Nausea Active Tagamet [D]Nausea Active Levaquin spasms Active Seafood [D]Headache [D]Nausea Active cimetidine WEAKNESS Active Immunizations Given and Recorded Vaccine Date Status Refusal Reason influenza virus vaccine, inactivated 01/12/22 Robles rded influenza virus vaccine, inactivated 12/16/20 Robles rded influenza virus vaccine, inactivated 1 01/19/19 Gi maggie influenza virus vaccine, inactivated 01/03/18 Give n influenza virus vaccine, inactivated 2 03/01/17 Gi maggie SARS-CoV-2 mRNA ([id number]) vax 09/16/21 Recorded zoster vaccine, inactivated 04/14/21 Recorded zoster vaccine, inactivated 12/09/20 Recorded SARS-CoV-2 (COVID-19) mRNA BNT-162b2 vac 01/08/21 Recorded SARS-CoV-2 (COVID-19) mRNA BNT-162b2 vac 05/22/20 Given SARS-CoV-2 (COVID-19) mRNA BNT-162b2 vac 05/01/20 Given Influenza Virus Vaccine (oldterm) 11/16/19 Recorde d tetanus/diphtheria/pertussis, acel(Tdap) 3 08/23/17 Given pneumococcal 13-valent vaccine 4 03/01/17 Given 1Result Comment: [facility]-[id number] 2Result Comment: [03/01/2017] [facility] [id number] 3Result Comment: [08/23/2017] [facility] [id number] 4Result Comment: [03/01/2017] [facility] [id number] Medications BiPAP Equipment BiPAP 14/, Maintenance, nasal mask Reliable Respiratory, 05/16/18 15:13:22 EST, Compound Start Date: 05/16/18 Status: Ordered Calcium 600 +D By Mouth, 0 Refills Start Date: 09/04/08 Stop Date: 10/04/08 Status: Ordered clonazePAM 1 mg oral tablet 1 tablet, By Mouth, 2 times a day, # 180 tablet, 1 Refills, Maintenance, 02/03/22 15:36:00 EST, [facility], 175.26, cm, 02/03/22 14:57:00 EST, Height Start Date: 02/03/22 Status: Ordered cranberry oral tablet 0 Refills, Maintenance, 09/24/16 10:41:52 Start Date: 09/24/16 Status: Ordered Flonase 50 mcg/inh nasal spray 1 sprays = 50 mcg, Nares, Both, Daily, # 16 Gm, 5 Refills, Maintenance, 01/15/20 14:58:00 EDT, [facility] [id number] 1 sprays Nares, Both Daily, 175.26, cm, 12/04/19 14:32:00 EDT, Height, 121.7, kg, 09/01/19 8:19:00 EDT, Dry Weight Start Date: 01/15/20 Status: Ordered fluconazole 150 mg oral tablet 1 tablet = 150 mg, By Mouth, Once, # 1 tablet, 0 Refills, Soft Stop, 02/26/22 15:22:00 EST, [id number] fill upon patient request if [...] 11/20/20 17:39:00 EDT, Route to Pharmacy Electronically, [facility], Partial fill upon patient [...] 3 Refills, Maintenance, 02/03/22 15:34:00 EST, Suspension, [facility], Partial fill upon patient request if the prescription is for a schedule II opioid drug., 175.26, c... Start Date: 02/03/22 Status: Ordered PARoxetine 20 mg oral tablet 1, tablet, By Mouth, Daily, # 90 tablet, Refills 1, Maintenance, 12/06/21 1:01:00 EDT, Route to Pharmacy Electronically, [facility], 175.26, cm, 03/25/21 [...] 02/26/22 13:19:00 EST, Route to Pharmacy Electronically, [facility]/pharmacy #[id number], Partial fill upon patient request if [...] 01/12/23 0:00:00 EDT, 01/12/22 17:01:00 EDT, Tablet, [facility] Carem... Start Date: 01/12/22 Stop Date: 01/12/23 [...] Personnel Name: Grecia SEGUNDO, Talat March Position: [facility] Primary Care Physician Member Role: PCP Address: Address: [address] [place] [id number]- Care Team Related Persons Name: ANNIE HASSAN Address: home [address] [place] [address] Name: LISHA LOVE Address: home [address] [place] [address]
--- OUTSIDE RECORDS SUMMARY | 2023-02-26 11:22 | XMS_ITS | Continuity of Care Document ---
Author Name Unknown Organization [facility] Address [address], [address], [address] [place] [address]- Care Team Providers Care Assembly Detailer Name Role Phone Grecia SEGUNDO, Talat March Primary Care Physician [phone] Encounter [facility] Date(s): 08/10/22 - 09/09/22 [facility] [address], [address], [address] [place] [address]- Allergies, Adverse Reactions, Alerts Substance Reaction Severity [...] inactivated 3 03/01/17 Gi maggie SARS-CoV-2 mRNA ([id number]-ruky-nulmi) vax 09/16/21 Recorded zoster vaccine, inactivated 04/14/21 Recorded zoster vaccine, inactivated 12/09/20 Recorded SARS-CoV-2 (COVID-19) mRNA BNT-162b2 vac 01/08/21 Recorded SARS-CoV-2 (COVID-19) mRNA BNT-162b2 vac 05/22/20 Given SARS-CoV-2 (COVID-19) mRNA BNT-162b2 vac 05/01/20 Given Influenza Virus Vaccine (oldterm) 11/16/19 Recorde d tetanus/diphtheria/pertussis, acel(Tdap) 4 08/23/17 Given pneumococcal 13-valent vaccine 5 03/01/17 Given 1Result Comment: [id number] 2Result Comment: [facility]-[id number] 3Result Comment: [03/01/2017] [facility] [id number] 4Result Comment: [08/23/2017] [facility] [id number] 5Result Comment: [03/01/2017] [facility] [id number] Medications Calcium 600 +D By Mouth, 0 Refills Start Date: 09/04/08 Stop Date: 10/04/08 Status: Ordered clonazePAM 1 mg oral tablet 1 tablet, By Mouth, 2 times a day, # 180 tablet, 1 Refills, Maintenance, 02/03/22 15:36:00 EST, [facility], 175.26, cm, 02/03/22 14:57:00 EST, Height Start Date: 02/03/22 Status: Ordered cranberry oral tablet 0 Refills, Maintenance, 09/24/16 10:41:52 Start Date: 09/24/16 Status: Ordered Flonase 50 mcg/inh nasal spray 1 sprays = 50 mcg, Nares, Both, Daily, # 16 Gm, 5 Refills, Maintenance, 01/15/20 14:58:00 EDT, Nasal [place], [facility]/pharmacy #[id number], 1 sprays Nares, Both Daily, 175.26, cm, 12/04/19 14:32:00 EDT, Height, 121.7, kg, 09/01/19 8:19:00 EDT, Dry Weight Start Date: 01/15/20 Status: Ordered hyoscyamine 0.125 mg oral tablet 0.125 mg, 1, tablet, By Mouth, Daily, PRN, # 45 tablet, Refills 3, Tot. Refills 3, Maintenance, Spasm, 11/20/20 17:39:00 EDT, Route to Pharmacy Electronically, [facility], Partial fill upon patient request [...] Stop Date: 10/04/08 Status: Ordered nystatin topical 934815 u/gm powder 1 application, Topically, 2 times a day, Apply to affected areas twice a day., # 60 Gm, 5 Refills, Acute 05/07/23 14:21:00 EST, 05/07/22 14:21:00 EST, Powder, [facility], 1 application Topically 2 times a day,Instr:Apply to affe... Start Date: 05/07/22 Stop Date: 05/07/23 Status: Ordered omeprazole 40 mg oral enteric coated capsule 1 capsule = 40 mg, By Mouth, 2 times a day, # 180 capsule, 3 Refills, Maintenance, 02/03/22 15:34:00 EST, Suspension, [facility], Partial fill upon patient request if the prescription is for a schedule II opioid drug., 175.26, c... Start Date: 02/03/22 Status: Ordered PARoxetine 20 mg oral tablet 1, tablet, By Mouth, Daily, # 90 tablet, Refills 1, Maintenance, 05/12/22 13:58:00 EST, Route to Pharmacy Electronically, [facility], 175.26, cm, 05/07/22 [...] 06/29/22 11:50:00 EDT, Route to Pharmacy Electronically, [facility], Partial fill upon patient request if the prescr... Start Date: 06/29/22 Status: Ordered rizatriptan 10 mg oral tablet 1 tablet = 10 mg, By Mouth, Daily, PRN Migraine Headache, may repeat dose in 2 hours if needed, do not exceed 2 doses in 24 hours, # 9 tablet, 5 Refills, Acute 08/11/23 0:00:00 EDT, 08/10/22 18:20:00EDT, [facility]/pharmacy #[id number], Partial fill upon patient... Start [...] 0 Refills, Soft Stop, 08/10/22 18:12:00 EDT, [facility]/pharmacy #[id number], Partial fill upon patient request [...] Primary Care Member Role: PCP Address: Address: [address] [place] [address]- Care Team Related Persons Name: ANNIE HASSAN Address: home [address] [place] [address] Name: LISHA LOVE Address: home [address] [place] [address]
--- OUTSIDE RECORDS SUMMARY | 2023-02-26 11:22 | XMS_ITS | Continuity of Care Document ---
Author Name Unknown Organization [facility] Address [address] [place] [address]- Care Team Providers Care Estate Attorney Name Role Phone Grecia SEGUNDO, Talat March Primary Care Physician Encounter [facility] Date(s): 08/11/19 - 09/10/19 [facility] [address] [address]- [facility] Attending Physician: Admjose, [id number] Admitting Physician: Admtr, [id number] Referring Physician: Admtr, Ar8 Allergies, Adverse Reactions, [...] vaccine 4 03/01/17 Given 1Result Comment: [facility]-[id number] 2Result Comment: [03/01/2017] [facility] [id number] 3Result Comment: [08/23/2017] [facility] [id number] 4Result Comment: [03/01/2017] [facility] [id number] Medications acetaminophen/butalbital/caffeine 325 mg-50 mg-40 mg oral capsule 1 capsule, By Mouth, Every 4 hours, PRN for headache, # 90 capsule, 1 Refills, Maintenance, 07/03/19 14:23:00 EDT, Capsule, [facility], 1 capsule By Mouth Every 4 [...] tablet, 1 Refills, Maintenance, 05/09/19 12:56:00 EST, [facility], 162.56, cm, 11/08/18 10:49:00 EDT, Height Start Date: 05/09/19 Status: Ordered cranberry oral tablet 0 Refills, Maintenance, 09/24/16 10:41:52 Start Date: 09/24/16 Status: Ordered Dilaudid 2 mg oral tablet 1 tablet = 2 mg, By Mouth, Every 4 hours, PRN for pain, # 18 tablet, 0 Refills, Maintenance, 09/01/19 10:16:00 EDT, Tablet, [facility], Partial fill upon patient request, 175.26, cm,09/01/19 8:19:00 EDT, Height, 121.7, kg, 09/01/19 8... Start Date: 09/01/19 Status: Ordered Flonase 50 mcg/inh nasal spray 1 sprays = 50 mcg, Nares, Both, Daily, # 16 Gm, 5 Refills, Maintenance, 11/08/18 11:12:34 EDT, Nasal [place], 1 sprays Nares, Both Daily Start Date: 11/08/18 Status: Ordered Hyoscyamine 0 Refills, Maintenance, 09/24/16 10:41:29 Start Date: 09/24/16 Status: Ordered Multivitamin Tablet 1 tablet, By Mouth, Daily, 0 Refills Start Date: 09/04/08 Stop Date: 10/04/08 Status: Ordered omeprazole 20 mg oral enteric coated capsule 1 capsule, By Mouth, Daily, # 90 capsule, 3 Refills, Maintenance, 08/16/19 7:22:00 EDT, [facility], 162.56, cm, 11/08/18 10:49:00 EDT, Height Start Date: 08/16/19 Status: Ordered PARoxetine 20 mg oral tablet 1, tablet, By Mouth, Daily, # 90 tablet, Refills 3, Tot. Refills 3, Maintenance, 06/23/19 11:03:00 EDT, Route to Pharmacy Electronically, [facility], 162.56, cm, 11/08/18 10:49:00 EDT, Height [...] 11/08/18 11:11:57 EDT, Route to Pharmacy Electronically, [id number], [facility] Start Date: 11/08/18 Status: Ordered triamcinolone [...] 0 Refills, Maintenance, 09/01/19 10:18:00 EDT, Tablet, [facility], 175.26, cm, 09/01/19 8:19:00 EDT,Height, [...]
[2023-02-26 12:24] LABS: MANUAL DIFF FLAG NO
[2023-02-26 12:26] LABS: Basophils Absolute Auto 0.1 X10*3/uL (0.0-0.2); Basophils Percent Auto 0.8 % (0-2); Eosinophils Absolute Auto 0.2 X10*3/uL (0.0-0.4); Hematocrit 38.8 % (37.0-47.0); Hemoglobin 12.9 g/dl (12.0-16.0); Imm Gran Abs Auto 0.02 X10*3/uL (0.00-0.03); Imm Gran Pct Auto 0.3 % (0.0-0.4); Lymphocytes Absolute Auto 1.4 X10*3/uL (1.2-4.9); Lymphocytes Percent Auto 17.3 % (20-40); Mean Corpuscular HGB Conc 33.2 g/dl (31.0-35.0); Mean Corpuscular Volume 87.2 fL (80.0-98.0); Mean Platelet Volume 10.1 fL (9.4-12.3); Monocytes Absolute Auto 0.4 X10*3/uL (0.1-1.2); Monocytes Percent Auto 5.4 % (2-11); Neutrophils Absolute Auto 5.8 x10*3/uL (2.0-8.3); Neutrophils Percent Auto 73.2 % (45-73); Platelet Count 243 X10*3/uL (160-400); Red Blood Count 4.45 X10*6/uL (4.20-5.50); Red Cell Distribution Width 13.7 % (11.0-16.0); White Blood Count 7.9 X10*3/uL (4.8-10.8)
[2023-02-26 12:28] VITALS: BP 181/48; PULSE 61; RESP 18; O2SAT 92
[2023-02-26 12:39] LABS: Appearance Urine Clear; Color Urine Yellow; Glucose Urine UA Negative (Negative); Leukocyte Esterase Urine Negative (Negative); Nitrite Urine Negative (Negative); Specific Gravity - Urine <= 1.005 (1.005-1.025); Urine Blood Negative (Negative); Urine Ketones Negative (Negative); Urine Protein Negative (Neg-Trace)
[2023-02-26 12:43] LABS: Anion Gap 12 (12-20); Blood Urea Nitrogen 13 mg/dL (9-16); Calcium 9.4 mg/dL (8.4-10.2); Carbon Dioxide 27 mmol/L (22-29); Chloride 110 mmol/L (96-108); Creatinine Clr Calc Pharmacy 78.2; Estimated Glomerular Filt Rate > 60; Glucose Random 111 mg/dL (60-115); Potassium 4.1 mmol/L (3.3-5.1); Sodium 145 mmol/L (135-145)
[2023-02-26 12:57] LABS: Troponin-I High Sensitivity < 2.7 ng/L (<3.5-17.0)
[2023-02-26 14:07] VITALS: BP 164/67; PULSE 76; RESP 19; O2SAT 98
== END 2023-02-26 14:14 | disposition home or self-care (01) ==
PROVIDERS: Emergency Provider Emergency Medicine; PCP Family Medicine
DX: R20.2 Paresthesia of skin (principal); F41.1 Generalized anxiety disorder; F43.0 Acute stress reaction; Z79.899 Other long term (current) drug therapy
CPT/HCPCS: 36415; 80048; 81003; 84484; 85025; 93005; 99283; 99284

== ENCOUNTER → 2023-02-26 10:53 | Outpatient (BNV) | payer MEDICARE, OTHER, SELFPAY | PROVIDERS: Emergency Provider Emergency Medicine; PCP Family Medicine; Visit Provider Internal Medicine | DX: I63.9 Cerebral infarction, unspecified (principal) | CPT/HCPCS: 93010 ==

== ENCOUNTER → 2024-03-27 12:34 | Outpatient (BNV) | payer MEDICARE, OTHER, SELFPAY | PROVIDERS: PCP Family Medicine; Visit Provider Radiology Diagnostic Radiology | DX: R22.41 Localized swelling, mass and lump, right lower limb (principal) | CPT/HCPCS: 93971 ==

== ENCOUNTER → 2025-03-19 19:52 | Outpatient (BNV) | payer MEDICARE, OTHER, SELFPAY | PROVIDERS: Emergency Provider Emergency Medicine; Visit Provider Radiology Diagnostic Radiology | DX: M50.30 Other cervical disc degeneration, unspecified cervical region (principal); G31.89 Other specified degenerative diseases of nervous system; J34.89 Other specified disorders of nose and nasal sinuses; S42.211A Unspecified displaced fracture of surgical neck of right humerus, initial encounter for closed fracture; R06.02 Shortness of breath; S62.111A Displaced fracture of triquetrum [cuneiform] bone, right wrist, initial encounter for closed fracture; Z04.3 Encounter for examination and observation following other accident | CPT/HCPCS: 70450; 71045; 72125; 73030; 73080; 73110 ==

== ENCOUNTER → 2025-03-19 20:01 | Outpatient (BNV) | payer MEDICARE, OTHER, SELFPAY | PROVIDERS: Emergency Provider Emergency Medicine; Visit Provider Internal Medicine | DX: R00.1 Bradycardia, unspecified (principal) | CPT/HCPCS: 93010 ==

== ENCOUNTER → 2025-03-19 23:56 | Outpatient (BNV) | payer MEDICARE, OTHER, SELFPAY | PROVIDERS: Emergency Provider Emergency Medicine; Visit Provider Student in an Organized Health Care Education/Training Program | DX: J96.01 Acute respiratory failure with hypoxia (principal); J45.909 Unspecified asthma, uncomplicated | CPT/HCPCS: 99233; 99499 ==

== ENCOUNTER → 2025-03-20 18:25 | Outpatient (BNV) | payer MEDICARE, OTHER, SELFPAY | PROVIDERS: Admitting Provider Student in an Organized Health Care Education/Training Program; Emergency Provider Emergency Medicine; Visit Provider Internal Medicine | DX: I49.3 Ventricular premature depolarization (principal) | CPT/HCPCS: 93010 ==

== ENCOUNTER → 2025-03-20 19:21 | Outpatient (BNV) | payer MEDICARE, OTHER, SELFPAY | PROVIDERS: Emergency Provider Emergency Medicine; Visit Provider Radiology Diagnostic Radiology | DX: R09.02 Hypoxemia (principal) | CPT/HCPCS: 71275 ==

== ENCOUNTER 2025-03-21 13:05 | Outpatient (BNV) | payer MEDICARE, OTHER, SELFPAY | END 2025-03-21 14:30 | PROVIDERS: Admitting Provider Student in an Organized Health Care Education/Training Program; Emergency Provider Emergency Medicine; Visit Provider Internal Medicine | DX: I35.0 Nonrheumatic aortic (valve) stenosis (principal); I27.20 Pulmonary hypertension, unspecified | CPT/HCPCS: 93306 ==

== ENCOUNTER → 2025-03-21 13:05 | Outpatient (BNV) | payer MEDICARE, OTHER, SELFPAY | PROVIDERS: Admitting Provider Student in an Organized Health Care Education/Training Program; Emergency Provider Emergency Medicine; PCP Family Medicine; Visit Provider Internal Medicine Pulmonary Disease | DX: J96.01 Acute respiratory failure with hypoxia (principal); I27.20 Pulmonary hypertension, unspecified; E66.01 Morbid (severe) obesity due to excess calories | CPT/HCPCS: 99223 ==